=== PATIENT | female | born 1965 | race Caucasian/White ===

== ENCOUNTER 2017-05-29 10:04 | Emergency (ER) | payer OTHER, SELFPAY | END 2017-05-29 13:21 | disposition home or self-care (01) | PROVIDERS: Emergency Provider Emergency Medicine; Family Provider Nurse Practitioner Family; Visit Provider Emergency Medicine | DX: N93.9 Abnormal uterine and vaginal bleeding, unspecified (principal); N83.202 Unspecified ovarian cyst, left side; R55 Syncope and collapse; E03.9 Hypothyroidism, unspecified; Z88.6 Allergy status to analgesic agent; Z79.899 Other long term (current) drug therapy | CPT/HCPCS: 76830; 80053; 81001; 81025; 85025; 99284 ==

== ENCOUNTER → 2017-06-05 09:12 | Outpatient (POV) | payer OTHER, SELFPAY ==
[2017-06-05 09:21] VITALS: BMI 29.2
[2017-06-05 09:24] VITALS: BMI 29.1
[2017-06-05 09:25] VITALS: BP 113/81; PULSE 63; RESP 18; BMI 29.1
[2017-06-05 09:26] VITALS: BP 113/81; PULSE 63; RESP 18; BMI 29.1
--- NOTE | 2017-06-05 10:03 | HMH.PAINSOAP ---
[facility] Pain Management SOAP Note Subjective:: This patient is a pleasant 52-year-old white female who we are treating for low back pain and bilateral hip pain. She underwent bilateral joint injections with temporary relief however good relief of her pain symptoms. When she went back to work her pain started back in her low back and down her right leg. She is currently on diclofenac 75 mg twice a day which does not help much. She is unable to take gabapentin because of significant side effects which interfere with her work. Her MRI does show degenerative changes with bulging disc in the lower lumbar spine. She also has facet hypertrophy at L3-L4, L4-L5 and L5-S1. I believe she would benefit from a lumbar epidural steroid injection. We will try this at her next visit. Objective:: Alert and oriented ?3 in no acute distress. Patient has a normal gait. Motor strength of the lower extremities is 5/5. There is no gross sensory deficit. Assessment:: Degenerative disc disease of lumbar spine with bulging disc at L4-L5 and facet hypertrophy at L3-L4, L4-5 and L5-S1. Bilateral sacroiliitis. Plan:: We will seek approval and plan on a lumbar epidural steroid injection. She also may be a candidate for repeat bilateral facet joint injections of L3-L4, L4-L5 and L5-S1 in the future.
--- NOTE | 2017-06-05 10:06 | P.CONS_ITS ---
[facility] [place] Pain Management SOAP Note Subjective:: This patient is a pleasant 52-year-old white female who we are treating for low back pain and bilateral hip pain. She underwent bilateral joint injections with temporary relief however good relief of her pain symptoms. When she went back to work her pain started back in her low back and down her right leg. She is currently on diclofenac 75 mg twice a day which does not help much. She is unable to take gabapentin because of significant side effects which interfere with her work. Her MRI does show degenerative changes with bulging disc in the lower lumbar spine. She also has facet hypertrophy at L3-L4, L4-L5 and L5-S1. I believe she would benefit from a lumbar epidural steroid injection. We will try this at her next visit. Objective:: Alert and oriented ?3 in no acute distress. Patient has a normal gait. Motor strength of the lower extremities is 5/5. There is no gross sensory deficit. Assessment:: Degenerative disc disease of lumbar spine with bulging disc at L4-L5 and facet hypertrophy at L3-L4, L4-5 and L5-S1. Bilateral sacroiliitis. Plan:: We will seek approval and plan on a lumbar epidural steroid injection. She also may be a candidate for repeat bilateral facet joint injections of L3-L4, L4 -L5 and L5-S1 in the future.
== END ==
PROVIDERS: Family Provider Nurse Practitioner Family; PCP Nurse Practitioner Family; Visit Provider Anesthesiology
DX: M46.1 Sacroiliitis, not elsewhere classified (principal); M51.36 Other intervertebral disc degeneration, lumbar region
CPT/HCPCS: 99212

== ENCOUNTER → 2017-07-27 10:31 | Day surgery (SDC) | payer OTHER, SELFPAY ==
[2017-07-27 11:48] VITALS: BP 125/66; PULSE 59; RESP 21; TEMP 36.7; O2SAT 98; BMI 29.9
--- NOTE | 2017-07-27 12:26 | HMH.PMPROC ---
- Procedure Date: 07/27/17 Time: 12:26 Anesthesiologist:: Jurgen Sharma MD Complications:: None Pre-procedure Diagnosis:: Degenerative disc disease of lumbar spine with bulging disc at L4-L5 and facet hypertrophy at L3-L4, L4-5 and L5-S1 Post-procedure Diagnosis:: Same Indications for Procedure:: This patient is a pleasant 52-year-old white female who we are treating for low back pain and bilateral hip pain. She has increasing pain in her low back with artery when she went back to work. It also goes down her right leg. MRI does show degenerative changes with bulging disc at L4-L5 and facet hypertrophy at L3-L4, L4-L5 and L5-S1. We will do a lumbar epidural steroid injection today to see if this helps with her pain symptoms. Procedure Details:: Lumbar epidural steroid injection under fluoroscopy Informed consent was obtained and the risk and benefits of the procedure was explained to the patient. The patient was taken to the procedure room. The patient was placed prone on the procedure table. The patient was prepped and draped in sterile fashion. C-arm fluoroscopy was used to view the lumbar spine. Skin and subcutaneous tissues were anesthetized using lidocaine. I placed an 18-gauge epidural needle and advanced into the L4-L5 interspace using fluoroscopic guidance and [id number] to air. After confirmation of needle placement in the epidural space with dye I injected 2 mL of lidocaine 1.5% with Depo-Medrol 80 mg. Patient tolerated the procedure well with no complications. Plan and Disposition:: We will follow-up with this patient in 2 weeks. We will reevaluate her symptoms at that time.
[2017-07-27 12:29] VITALS: BP 156/72; PULSE 76; RESP 18
[2017-07-27 12:32] VITALS: BP 141/66; PULSE 58; RESP 20; O2SAT 98
--- NOTE | 2017-07-27 12:33 | P.PCN_ITS ---
- Procedure Date: 07/27/17 Time: 12:26 Anesthesiologist:: Jurgen Sharma MD Complications:: None Pre-procedure Diagnosis:: Degenerative disc disease of lumbar spine with bulging disc at L4-L5 and facet hypertrophy at L3-L4, L4-5 and L5-S1 Post-procedure Diagnosis:: Same Indications for Procedure:: This patient is a pleasant 52-year-old white female who we are treating for low back pain and bilateral hip pain. She has increasing pain in her low back with artery when she went back to work. It also goes down her right leg. MRI does show degenerative changes with bulging disc at L4-L5 and facet hypertrophy at L3 -L4, L4-L5 and L5-S1. We will do a lumbar epidural steroid injection today to see if this helps with her pain symptoms. Procedure Details:: Lumbar epidural steroid injection under fluoroscopy Informed consent was obtained and the risk and benefits of the procedure was explained to the patient. The patient was taken to the procedure room. The patient was placed prone on the procedure table. The patient was prepped and draped in sterile fashion. C-arm fluoroscopy was used to view the lumbar spine. Skin and subcutaneous tissues were anesthetized using lidocaine. I placed an 18-gauge epidural needle and advanced into the L4-L5 interspace using fluoroscopic guidance and [id number] to air. After confirmation of needle placement in the epidural space with dye I injected 2 mL of lidocaine 1.5 % with Depo-Medrol 80 mg. Patient tolerated the procedure well with no complications. Plan and Disposition:: We will follow-up with this patient in 2 weeks. We will reevaluate her symptoms at that time.
[2017-07-27 12:45] VITALS: BP 116/64; PULSE 55; RESP 21; TEMP 36.4; O2SAT 97
== END ==
PROVIDERS: Family Provider Nurse Practitioner Family; PCP Internal Medicine Adolescent Medicine; Visit Provider Anesthesiology
DX: M51.36 Other intervertebral disc degeneration, lumbar region (principal); M46.96 Unspecified inflammatory spondylopathy, lumbar region
CPT/HCPCS: 62323; J1040; Q9966

== ENCOUNTER → 2017-08-13 15:39 | Outpatient (POV) | payer OTHER, SELFPAY ==
[2017-08-13 15:47] VITALS: BP 134/71; PULSE 97; RESP 18; TEMP 36.4; O2SAT 97; BMI 29.1
--- NOTE | 2017-08-13 16:18 | HMH.PAINSOAP ---
[facility] Pain Management SOAP Note Subjective:: Patient is a pleasant 52-year-old white female who presents today as a follow-up after her lumbar epidural steroid injection. Patient states that she had 80-90% relief of her pain after her injection. This pain relief is still ongoing and has lasted over 3 weeks. Patient is interested in getting another lumbar epidural steroid injection at this time. Patient rates her pain as 6 out of 10 today. However she has been working and does a lot of physical activity for her job. Patient is on anti-inflammatories and has tried physical therapy in the past. Patient states that the injection has been the most helpful in increasing her functionality at work. ROS General: no recent weight change, no fever, no sleep disturbances Respiratory: no cough, no shortness of air, no recurring pulmonary infections Cardiovascular/Peripheral Vascular: No chest pain, No palpitations, no edema, no shortness of breath. Gastrointestinal: no incontinence, normal bowel movements reported Genitourinary: no incontinence Musculoskeletal: Back pain Psychiatric: normal mood/ affect, [denies depression], [denies anxiety] Neurological: [denies weakness in extremities], [denies balance issues] Objective:: Physical Exam General: Alert and oriented x3, no acute distress, pleasant and cooperative, [on room air] Lungs: Resps E/U, Symmetrical chest expansion, Eyes: PERRL Musculoskeletal: Flexion and extension of lumbar spine somewhat guarded secondary to pain, deep tendon reflexes normal, strength in upper and lower extremities [5/5], normal gait noted, positive bilateral straight leg test at 30? Neurological: speech clear, denture laboratory technician equal, no gross sensory deficits Assessment:: Degenerative disc disease of the lumbar spine with lumbar radiculopathy Plan:: We will order a L4-L5 lumbar epidural steroid injection in several weeks. Patient will continue on her anti-inflammatories. Patient is working full-time. Patient got significant relief from her last injection. Patient has tried and failed physical therapy in the past. This note was dictated using voice recognition software and may contain errors or omissions
--- NOTE | 2017-08-13 16:21 | P.CONS_ITS ---
[facility] Pain Management SOAP Note Subjective:: Patient is a pleasant 52-year-old white female who presents today as a follow- up after her lumbar epidural steroid injection. Patient states that she had 80- 90% relief of her pain after her injection. This pain relief is still ongoing and has lasted over 3 weeks. Patient is interested in getting another lumbar epidural steroid injection at this time. Patient rates her pain as 6 out of 10 today. However she has been working and does a lot of physical activity for her job. Patient is on anti-inflammatories and has tried physical therapy in the past. Patient states that the injection has been the most helpful in increasing her functionality at work. ROS General: no recent weight change, no fever, no sleep disturbances Respiratory: no cough, no shortness of air, no recurring pulmonary infections Cardiovascular/Peripheral Vascular: No chest pain, No palpitations, no edema, no shortness of breath. Gastrointestinal: no incontinence, normal bowel movements reported Genitourinary: no incontinence Musculoskeletal: Back pain Psychiatric: normal mood/ affect, [denies depression], [denies anxiety] Neurological: [denies weakness in extremities], [denies balance issues] Objective:: Physical Exam General: Alert and oriented x3, no acute distress, pleasant and cooperative, [ on room air] Lungs: Resps E/U, Symmetrical chest expansion, Eyes: PERRL Musculoskeletal: Flexion and extension of lumbar spine somewhat guarded secondary to pain, deep tendon reflexes normal, strength in upper and lower extremities [5/5], normal gait noted, positive bilateral straight leg test at 30 ? Neurological: speech clear, expeller worker equal, no gross sensory deficits Assessment:: Degenerative disc disease of the lumbar spine with lumbar radiculopathy Plan:: We will order a L4-L5 lumbar epidural steroid injection in several weeks. Patient will continue on her anti-inflammatories. Patient is working full- time. Patient got significant relief from her last injection. Patient has tried and failed physical therapy in the past. This note was dictated using voice recognition software and may contain errors or omissions
== END ==
PROVIDERS: Family Provider Nurse Practitioner Family; PCP Internal Medicine Adolescent Medicine; Visit Provider Clinical Nurse Specialist Family Health
DX: M54.16 Radiculopathy, lumbar region (principal)
CPT/HCPCS: 99212

== ENCOUNTER → 2017-08-17 10:37 | Outpatient (CLI) | payer OTHER, SELFPAY ==
[2017-08-17 12:29] LABS: Basophils % 0.5 % (0.1-2.0); Eosinophils # 0.2 K/mm3 (0.0-0.4); Eosinophils % 3.6 % (0.1-12.0); Hematocrit 41.7 % (37.0-47.0); Hemoglobin 12.9 g/dL (12.2-16.2); Lymphocytes # 1.8 K/mm3 (0.7-4.5); Lymphocytes % 33.8 K/mm3 (10-50); Mean Corpuscular Hemoglobin 27.7 pg (27.0-31.2); Mean Corpuscular Volume 89.5 fl (81-99); Mean Platelet Volume 7.7 fl (7.4-10.4); Monocytes # 0.3 K/mm3 (0.1-1.0); Monocytes % 5.2 % (1.7-9.3); Neutrophils # 3.1 K/mm3 (1.8-7.8); Neutrophils % 56.9 % (37.0-80.0); Platelet Count 301 K/mm3 (142-424); Red Blood Count 4.66 M/mm3 (4.20-5.40); Red Cell Distribution Width 12.8 % (11.5-17.5); White Blood Count 5.4 K/mm3 (4.8-10.8)
[2017-08-17 13:07] LABS: Chloride 106 mmol/L (98-107); Creatinine,Serum 0.57 mg/dL (0.55-1.02); Estimated Glomerular Filt Rate 112 ml/min (>60); GFR (African American) 136 ML/MIN (>60); Potassium 4.4 mmoL/L (3.5-5.1); Sodium 141 mmol/L (136-145)
[2017-08-17 13:18] LABS: Anion Gap 11.4 mEq/L (5-15); Blood Urea Nitrogen 15 mg/dL (7-18); Carbon Dioxide 28 mmol/L (21.0-32.0); Glucose 82 mg/dL (74-106)
== END ==
PROVIDERS: Visit Provider Nurse Practitioner Obstetrics & Gynecology
DX: Z01.818 Encounter for other preprocedural examination (principal); N95.0 Postmenopausal bleeding
CPT/HCPCS: 36415; 80048; 85025

== ENCOUNTER 2017-08-20 06:06 | Day surgery (SDC) | payer OTHER, SELFPAY ==
[2017-08-03 10:28] VITALS: BMI 29.1
[2017-08-20] VITALS (9 sets, daily range): BP systolic 114–134; BP diastolic 57–78; PULSE 49–60; RESP 16–18; TEMP 36.2–36.4; O2SAT 95–99
[2017-08-20 06:40] LABS: Urine Pregnancy, HCG Qual. Negative (Negative)
--- NOTE | 2017-08-20 08:19 | P.OP_ITS ---
Date of procedure: 08/20/17 Pre-op Diagnosis:: Postmenopausal bleeding, endometrial polyp Post-op Diagnosis:: Placement of bleeding endometrial polyp Procedure performed:: Hysteroscopy, D&C, polypectomy with Myosure Surgeon:: Juaquin Aguilar MD CEMENTER MACHINE JOINER:: Ramiro Mathis Anesthesia: LMA Estimated blood loss (mL): 50 Clinical Note:: She is a 52-year-old lady who complains of perimenopausal bleeding. Endometrial biopsy was negative for hyperplasia or endometrial carcinoma. She had a saline infusion sonohysterography that showed thickening of the anterior wall of the uterus possibly consistent with a flat polyp. Operative findings:: She had a 2 cm anterior thickening of the endometrium possibly consistent with a polyp or sub-serous fibroid. The rest of the endometrial cavity appeared normal. The endometrium was quite thin. It was somewhat thickened overlying the fibroid. Operative note:: She was taken to the operating room where LMA anesthesia was found to be adequate. She was prepped and draped in normal sterile fashion in the lithotomy position. A weighted speculum was placed in the vagina and the anterior lip of the cervix was grasped with a tenaculum. We then dilated her cervix to approximately 6 mm. We then inserted a hysteroscope into the uterine cavity and the findings were as previously dictated. Using the myOsure device I removed the thickening on the anterior wall of the uterus. It was seen to be completely free. I then performed a gentle curettage. She tolerated the procedure well and was taken to the recovery room in excellent condition. All sponge and instrument counts were correct. Estimated blood loss was less than 50 cc. Condition: stable Disposition: PACU Specimens:: Endometrial polyp, endometrial curettings Complications:: None
--- NOTE | 2017-08-20 08:21 | HMH.ANESI ---
[facility] Anesthesia Record Part I Intake, IV Amount: 500 Estimated blood loss (mL): 50 Urine output (mL): 25 Blood Products used (#): none Blood Pressure: 134/71 SaO2: 95 Pulse Rate: 57 Respiratory Rate: 18 Temperature: 97.5 F Patient is:: Drowsy, Stable Stable to PACU at:: 08:20
--- NOTE | 2017-08-20 08:22 | HMH.ANESII ---
[facility] Anesthesia Record Part II Discharge Time: 08:50 Destination: Surgical Day Care (OP Surgery) PACU nurse assessment reviewed?: Yes Patient Condition:: Good Anesthesia Complications:: None
--- NOTE | 2017-08-20 08:22 | HMH.ANESCL ---
[facility] Anesthesia Checklist - Patient Identification Patient Identification: Arm Band, Verbal (Name & ) - Structural Data Admitted From: Home Planned Operative Procedure/s: d and c Consent for Planned Operative Procedure(s) Verified: Yes Verified Documents: Surgical Consent - NPO Status Verified Time NPO: 00:00 - Chart Verification Results Verified: CBC, BMP - Additional verifications Patient : No Anesthesia Reactions: No Hx Blood Transfusions: No Blood Transfusion Reaction: No - Cardiovascular Assessment Heart Sounds: S1 & S2 Pulse Strength: Baseline Pulse Rhythm: Regular Peripheral Edema: No - Airway Assessment C-Spine Mobility Assessed: Yes TMJ Mobility Assessed: Yes Dentition: Good Dentition - Neurological Assessment Level of Consciousness: Awake, Alert, Appropriate Hx Seizures: No Numbness or tingling in extremities: No - Anesthesia Plan Anesthesia Risk discussed: Yes Anesthesia Plan: Verified ASA Class: I Anesthesia Type: Spinal [facility] Anesthesia HX I have reviewed the patient's past medical history: Yes Medical History: Denies:: Cancer, Diabetes Mellitus Type 1, Diabetes Mellitus Type 2, MRSA, Seizures Other Medical History: Reports: Hypothyroidism Laterality Cases: Left: Arthroscopy Knee Other Surgeries: Yes: Dilation and Curettage, Other Amputation: No *Family Hx:: Cancer, Heart Attack
--- NOTE | 2017-08-20 08:34 | PC.NURSE ---
0830-pt eating ice chips w/out difficulty
--- NOTE | 2017-08-20 08:51 | PC.NURSE ---
0848-detailed report given to Hellen,RN 0850-pt transported to post op w/rails up and left in care of LY Macedo w/bed locked in lowest position. VSS. Pt stable.
== END 2017-08-20 09:21 | disposition home or self-care (01) ==
LOC: OR 06:08
PROVIDERS: Family Provider Nurse Practitioner Family; PCP Internal Medicine Adolescent Medicine; Visit Provider Nurse Practitioner Obstetrics & Gynecology
PROC: 0UB98ZZ Excision of Uterus, Via Natural or Artificial Opening Endoscopic (ICD-10-PCS; CPT 58558; principal; 2017-08-20 07:30)
DX: N84.0 Polyp of corpus uteri; N93.8 Other specified abnormal uterine and vaginal bleeding
CPT/HCPCS: 58558; 81025; 96374; J0131; J2405

== ENCOUNTER → 2017-09-24 14:48 | Outpatient (POV) | payer OTHER, SELFPAY ==
[2017-09-24 15:01] VITALS: BP 116/67; PULSE 61; RESP 20; TEMP 36.7; O2SAT 98; BMI 29.1
--- NOTE | 2017-09-24 15:56 | HMH.PAINSOAP ---
[facility] Pain Management SOAP Note Subjective:: Patient is a pleasant 52-year-old white female who we are seeing for follow-up after lumbar epidural steroid injection. Patient states most of her back pain has resolved however she is having right SI joint pain. Patient is extremely tender over right SI joint. She rates her pain as 7 out of 10 today. Patient still works full-time on a very active job. Patient is interested in injective therapy. Patient has seen a neurosurgeon in the past and was deemed appropriate candidate for surgery however due to insurance restriction she was unable to continue with this. ROS General: no recent weight change, no fever, no sleep disturbances Respiratory: no cough, no shortness of air, no recurring pulmonary infections Cardiovascular/Peripheral Vascular: No chest pain, No palpitations, no edema, no shortness of breath. Gastrointestinal: no incontinence, normal bowel movements reported Genitourinary: no incontinence Musculoskeletal: Right SI joint pain Psychiatric: normal mood/ affect, Neurological: [denies weakness in extremities], [denies balance issues] Objective:: Physical Exam General: Alert and oriented x3, no acute distress, pleasant and cooperative, [on room air] Lungs: Resps E/U, Symmetrical chest expansion, Eyes: PERRL Musculoskeletal: Flexion and extension of lumbar spine somewhat guarded secondary to pain, deep tendon reflexes normal, strength in upper and lower extremities [5/5], [abnormal gait noted] a positive Valarie's test on the right side, extreme point tenderness over right SI joint Neurological: speech clear, magazine worker equal, no gross sensory deficits Assessment:: Sacroiliitis, degenerative disc disease of the lumbar spine Plan:: We will schedule a right SI joint injection for this patient. Patient is doing better after her 2 rounds a lumbar epidural steroid injections. Patient's tried and failed anti-inflammatories, medications, physical therapy. Patient and I had a long discussion if this does not provide some relief for her we may have to discuss potentially sending her back for another opinion surgically. I will follow-up with this patient after injection and reassess her symptoms at that time. This note was dictated using voice recognition software and may contain errors or omissions
--- NOTE | 2017-09-24 16:00 | P.CONS_ITS ---
[facility] Pain Management SOAP Note Subjective:: Patient is a pleasant 52-year-old white female who we are seeing for follow-up after lumbar epidural steroid injection. Patient states most of her back pain has resolved however she is having right SI joint pain. Patient is extremely tender over right SI joint. She rates her pain as 7 out of 10 today. Patient still works full-time on a very active job. Patient is interested in injective therapy. Patient has seen a neurosurgeon in the past and was deemed appropriate candidate for surgery however due to insurance restriction she was unable to continue with this. ROS General: no recent weight change, no fever, no sleep disturbances Respiratory: no cough, no shortness of air, no recurring pulmonary infections Cardiovascular/Peripheral Vascular: No chest pain, No palpitations, no edema, no shortness of breath. Gastrointestinal: no incontinence, normal bowel movements reported Genitourinary: no incontinence Musculoskeletal: Right SI joint pain Psychiatric: normal mood/ affect, Neurological: [denies weakness in extremities], [denies balance issues] Objective:: Physical Exam General: Alert and oriented x3, no acute distress, pleasant and cooperative, [ on room air] Lungs: Resps E/U, Symmetrical chest expansion, Eyes: PERRL Musculoskeletal: Flexion and extension of lumbar spine somewhat guarded secondary to pain, deep tendon reflexes normal, strength in upper and lower extremities [5/5], [abnormal gait noted] a positive Valarie's test on the right side, extreme point tenderness over right SI joint Neurological: speech clear, proposal director equal, no gross sensory deficits Assessment:: Sacroiliitis, degenerative disc disease of the lumbar spine Plan:: We will schedule a right SI joint injection for this patient. Patient is doing better after her 2 rounds a lumbar epidural steroid injections. Patient's tried and failed anti-inflammatories, medications, physical therapy. Patient and I had a long discussion if this does not provide some relief for her we may have to discuss potentially sending her back for another opinion surgically. I will follow-up with this patient after injection and reassess her symptoms at that time. This note was dictated using voice recognition software and may contain errors or omissions
== END ==
PROVIDERS: Family Provider Nurse Practitioner Family; PCP Internal Medicine Adolescent Medicine; Visit Provider Clinical Nurse Specialist Family Health
DX: M46.1 Sacroiliitis, not elsewhere classified (principal)
CPT/HCPCS: 99212

== ENCOUNTER → 2017-09-27 16:57 | Outpatient (CLI) | payer OTHER, SELFPAY ==
[2017-09-27 18:34] LABS: Alanine Aminotransferase 33 U/L (12-78); Albumin Level 3.2 gm/dL (3.4-5.0); Albumin/Globulin Ratio 0.9 (1.1-1.8); Alkaline Phosphatase 145 U/L (46-116); Anion Gap 13.3 mEq/L (5-15); Aspartate Amino Transferase 28 U/L (15-37); Bilirubin,Total 0.2 mg/dL (0.2-1.0); Blood Urea Nitrogen 21 mg/dL (7-18); Calcium 9.1 mg/dL (8.5-10.1); Carbon Dioxide 28 mmol/L (21.0-32.0); Chloride 105 mmol/L (98-107); Creatinine,Serum 0.81 mg/dL (0.55-1.02); Estimated Glomerular Filt Rate 75 ml/min (>60); GFR (African American) 91 ML/MIN (>60); Globulin 3.7 gm/dl (1.3-3.2); Glucose 82 mg/dL (74-106); Potassium 4.3 mmoL/L (3.5-5.1); Sodium 142 mmol/L (136-145); Thyroid Stimulating Hormone 0.55 uIU/ml (0.358-3.740); Total Protein,Serum 6.9 gm/dL (6.4-8.2)
[2017-09-29 20:12] LABS: Vitamin D 25 Hydroxy 20.2 ng/mL (30.0-100.0)
== END ==
PROVIDERS: Visit Provider Nurse Practitioner Family
DX: E03.9 Hypothyroidism, unspecified (principal)
CPT/HCPCS: 36415; 80053; 82652; 84443

== ENCOUNTER → 2017-10-22 15:29 | Outpatient (POV) | payer OTHER, SELFPAY ==
--- NOTE | 2017-10-22 16:00 | HMH.PAINSOAP ---
[facility] Pain Management SOAP Note Subjective:: Patient is a pleasant 52-year-old white female who presents today for follow-up. Patient is having increased pain in her back and bilateral legs. Patient rates her pain a 6 out of 10 today. Patient states she is having some restless leg at night.. She is unable to sleep. Patient still works full-time on a very active job. Patient is interested in getting a lumbar epidural steroid injection instead of an SI joint injection I believe that this would be beneficial given her increase in pain. Patient has been seen by a neurosurgeon in the past and was deemed appropriate candidate for surgery however due to insurance restriction she was unable to continue with this. Patient has taken it in the past 300 mg 1 p.o. 3 times daily. She states that it did make her woozy. Patient would like to start this at a lower dose. Patient is on anti-inflammatories. ROS General: no recent weight change, no fever, no sleep disturbances Respiratory: no cough, no shortness of air, no recurring pulmonary infections Cardiovascular/Peripheral Vascular: No chest pain, No palpitations, no edema, no shortness of breath. Gastrointestinal: no incontinence, normal bowel movements reported Genitourinary: no incontinence Musculoskeletal: Right SI joint pain, back pain, bilateral leg pain Psychiatric: normal mood/ affect, [denies depression], [denies anxiety] Neurological: [denies weakness in extremities], [denies balance issues] Objective:: Physical Exam General: Alert and oriented x3, no acute distress, pleasant and cooperative, [on room air] Lungs: Resps E/U, Symmetrical chest expansion, Eyes: PERRL Musculoskeletal: Flexion and extension of lumbar spine somewhat guarded secondary to pain, deep tendon reflexes normal, strength in upper and lower extremities [5/5], [abnormal gait noted] leg raise test bilaterally positive at 30? Neurological: speech clear, wig stylist equal, no gross sensory deficits Assessment:: Degenerative disc disease of lumbar spine, lumbar radiculopathy, sacroiliitis Plan:: We will start the patient on gabapentin 100 mg 1 p.o. nightly. Patient is to contact us if she has any side effects. Patient is to continue with her anti-inflammatories. We will schedule L4-L5 lumbar epidural steroid injection. Patient has these in the past with significant relief. Patient's tried and failed physical therapy, stretching therapy, medications. We will follow-up with the patient after injection. This note was dictated using voice recognition software and may contain errors or omissions
--- NOTE | 2017-10-22 16:03 | P.CONS_ITS ---
[facility] Pain Management SOAP Note Subjective:: Patient is a pleasant 52-year-old white female who presents today for follow- up. Patient is having increased pain in her back and bilateral legs. Patient rates her pain a 6 out of 10 today. Patient states she is having some restless leg at night.. She is unable to sleep. Patient still works full-time on a very active job. Patient is interested in getting a lumbar epidural steroid injection instead of an SI joint injection I believe that this would be beneficial given her increase in pain. Patient has been seen by a neurosurgeon in the past and was deemed appropriate candidate for surgery however due to insurance restriction she was unable to continue with this. Patient has taken it in the past 300 mg 1 p.o. 3 times daily. She states that it did make her woozy. Patient would like to start this at a lower dose. Patient is on anti-inflammatories. ROS General: no recent weight change, no fever, no sleep disturbances Respiratory: no cough, no shortness of air, no recurring pulmonary infections Cardiovascular/Peripheral Vascular: No chest pain, No palpitations, no edema, no shortness of breath. Gastrointestinal: no incontinence, normal bowel movements reported Genitourinary: no incontinence Musculoskeletal: Right SI joint pain, back pain, bilateral leg pain Psychiatric: normal mood/ affect, [denies depression], [denies anxiety] Neurological: [denies weakness in extremities], [denies balance issues] Objective:: Physical Exam General: Alert and oriented x3, no acute distress, pleasant and cooperative, [ on room air] Lungs: Resps E/U, Symmetrical chest expansion, Eyes: PERRL Musculoskeletal: Flexion and extension of lumbar spine somewhat guarded secondary to pain, deep tendon reflexes normal, strength in upper and lower extremities [5/5], [abnormal gait noted] leg raise test bilaterally positive at 30? Neurological: speech clear, floorworker equal, no gross sensory deficits Assessment:: Degenerative disc disease of lumbar spine, lumbar radiculopathy, sacroiliitis Plan:: We will start the patient on gabapentin 100 mg 1 p.o. nightly. Patient is to contact us if she has any side effects. Patient is to continue with her anti- inflammatories. We will schedule L4-L5 lumbar epidural steroid injection. Patient has these in the past with significant relief. Patient's tried and failed physical therapy, stretching therapy, medications. We will follow-up with the patient after injection. This note was dictated using voice recognition software and may contain errors or omissions
[2017-10-22 16:08] VITALS: BP 122/47; PULSE 89; RESP 18; O2SAT 98; BMI 32.8
--- NOTE | 2017-10-23 09:33 | PC.PHONENOTE ---
10/19/17-Called in Rx for Gabapentin 100mg QHS with no refills per provider order
--- NOTE | 2017-11-29 14:15 | PC.NURSE ---
gabapentin 100mg po nightly with 2 refills called in to [facility]
== END ==
PROVIDERS: Family Provider Nurse Practitioner Family; PCP Internal Medicine Adolescent Medicine; Visit Provider Clinical Nurse Specialist Family Health
DX: M54.16 Radiculopathy, lumbar region (principal)
CPT/HCPCS: 99212

== ENCOUNTER → 2017-12-26 15:37 | Outpatient (CLI) | payer OTHER, SELFPAY ==
--- NOTE | 2017-12-26 15:43 | XR_ITS ---
XR knee LT 3V Ordering Physician: Ramiro Alba MD Patient Age: 52 years: Female HISTORY: ITS.REASON: LEFT KNEE PAIN TECHNIQUE: 3 views of the left knee COMPARISON : None FINDINGS 3 views left knee reveal no fracture. Borderline narrowing medial compartment may reflect some early degenerative changes here. Mild sharpening the joint may reflect the same. There is some mild hypertrophic changes about the, not. No joint effusion evident. IMPRESSION: . No acute nor prominent findings left knee. Likely early degenerative arthritic changes
== END ==
PROVIDERS: PCP Internal Medicine Adolescent Medicine; Visit Provider Internal Medicine Adolescent Medicine
DX: M25.562 Pain in left knee (principal)
CPT/HCPCS: 73562

== ENCOUNTER 2018-03-04 10:30 | Outpatient (RCR) | payer OTHER, SELFPAY | END 2018-03-04 10:31 | disposition home or self-care (01) | LOC: PT 10:30 | PROVIDERS: Visit Provider Nurse Practitioner Family | DX: M25.562 Pain in left knee (principal) | CPT/HCPCS: 97010; 97014; 97016; 97110; 97163; G0283 ==

== ENCOUNTER 2018-05-08 09:24 | Outpatient (RCR) | payer OTHER, BC, SELFPAY | END 2018-05-09 10:15 | disposition home or self-care (01) | LOC: PT 09:24 | PROVIDERS: Visit Provider Orthopaedic Surgery | DX: M25.562 Pain in left knee (principal) | CPT/HCPCS: 97760 ==

== ENCOUNTER → 2018-06-10 08:01 | Outpatient (CLI) | payer OTHER, BC, SELFPAY ==
--- NOTE | 2018-06-10 08:08 | XR_ITS ---
XR knee LT 4V HISTORY: Knee pain ITS.REASON: weightbearing ORDERING PHYSICIAN: Sally Singleton MD PATIENT AGE: 53 years COMPARISON: 12/26/2017 FINDINGS: Weightbearing views are performed. Mild to moderate osteoarthritic changes are present involving all 3 compartments with decrease in the joint space and osteophyte formation. No fracture or dislocation. No lytic or blastic change. IMPRESSION: [id number] osteoarthritis which may be very slightly worse compared to the previous exam
== END ==
PROVIDERS: PCP Internal Medicine Adolescent Medicine; Visit Provider Orthopaedic Surgery
DX: M25.562 Pain in left knee (principal)
CPT/HCPCS: 73564

== ENCOUNTER → 2018-07-08 12:07 | Outpatient (CLI) | payer OTHER, BC, SELFPAY ==
[2018-07-08 13:19] LABS: Anion Gap 11.1 mEq/L (5-15); Blood Urea Nitrogen 24 mg/dL (7-18); Calcium 8.9 mg/dL (8.5-10.1); Carbon Dioxide 29 mmol/L (21.0-32.0); Chloride 104 mmol/L (98-107); Creatinine,Serum 0.71 mg/dL (0.55-1.02); Estimated Glomerular Filt Rate 87 ml/min (>60); Free T4 (Free Thyroxine) 1.57 ng/dl (0.76-1.46); GFR (African American) 105 ML/MIN (>60); Glucose 92 mg/dL (74-106); Potassium 4.1 mmoL/L (3.5-5.1); Sodium 140 mmol/L (136-145); Thyroid Stimulating Hormone 0.17 uIU/ml (0.358-3.740)
[2018-07-09 08:09] LABS: Vitamin D 25 Hydroxy 25.4 ng/mL (30.0-100.0)
== END ==
PROVIDERS: Visit Provider Nurse Practitioner Family
DX: E03.9 Hypothyroidism, unspecified (principal); E55.9 Vitamin D deficiency, unspecified; M54.41 Lumbago with sciatica, right side
CPT/HCPCS: 36415; 80048; 82652; 84439; 84443

== ENCOUNTER → 2018-11-07 17:08 | Outpatient (CLI) | payer OTHER, BC, SELFPAY ==
[2018-11-07 18:22] LABS: Free T4 (Free Thyroxine) 1.42 ng/dl (0.76-1.46); Thyroid Stimulating Hormone 0.94 uIU/ml (0.358-3.740)
== END ==
PROVIDERS: Visit Provider Nurse Practitioner Family
DX: E03.9 Hypothyroidism, unspecified (principal)
CPT/HCPCS: 36415; 84439; 84443

== ENCOUNTER → 2019-06-12 08:42 | Outpatient (CLI) | payer OTHER, BC, SELFPAY ==
[2019-06-12 08:53] LABS: Basophils % 0.8 % (0.1-2.0); Eosinophils # 0.2 K/mm3 (0.0-0.4); Eosinophils % 2.8 % (0.1-12.0); Hematocrit 43.5 % (37.0-47.0); Hemoglobin 13.8 g/dL (12.2-16.2); Lymphocytes % 36.5 % (10-50); Mean Corpuscular HGB Conc 31.6 g/dL (31.8-35.4); Mean Corpuscular Volume 88.4 fl (81-99); Mean Platelet Volume 8.5 fl (7.4-10.4); Monocytes # 0.3 K/mm3 (0.1-1.0); Monocytes % 4.7 % (1.7-9.3); Neutrophils # 3.1 K/mm3 (1.8-7.8); Neutrophils % 55.2 % (37.0-80.0); Platelet Count 297 K/mm3 (142-424); Red Blood Count 4.92 M/mm3 (4.20-5.40); Red Cell Distribution Width 13.1 % (11.5-17.5); White Blood Count 5.6 K/mm3 (4.8-10.8)
[2019-06-12 10:40] LABS: Blood Urea Nitrogen 20 mg/dL (7-18); Calcium 8.9 mg/dL (8.5-10.1); Carbon Dioxide 30 mmol/L (21.0-32.0); Chloride 105 mmol/L (98-107); Creatinine,Serum 0.68 mg/dL (0.55-1.02); Estimated Glomerular Filt Rate 91 ml/min (>60); GFR (African American) 110 ML/MIN (>60); Glucose 82 mg/dL (74-106); Sodium 140 mmol/L (136-145); Thyroid Stimulating Hormone 0.66 uIU/ml (0.358-3.740)
[2019-06-13 19:04] LABS: Vitamin D 25 Hydroxy 20.3 ng/mL (30.0-100.0)
== END ==
PROVIDERS: Visit Provider Nurse Practitioner Family
DX: E03.9 Hypothyroidism, unspecified (principal); E55.9 Vitamin D deficiency, unspecified
CPT/HCPCS: 36415; 80048; 82652; 84443; 85025

== ENCOUNTER → 2019-11-20 07:47 | Outpatient (CLI) | payer BC, SELFPAY ==
[2019-11-20 09:33] LABS: Alanine Aminotransferase 11 U/L (12-78); Albumin Level 3.8 g/dl (3.5-5.0); Albumin/Globulin Ratio 1.2 (1.1-1.8); Alkaline Phosphatase 102 U/L (38-126); Anion Gap 12.2 mEq/L (5-15); Aspartate Amino Transferase 24 U/L (14-36); Bilirubin,Total 0.4 mg/dl (0.2-1.3); Blood Urea Nitrogen 28 mg/dl (7-17); Calcium 9.4 mg/dl (8.4-10.2); Carbon Dioxide 29 mmol/L (22.0-30.0); Chloride 102 mmol/L (98-107); Estimated Glomerular Filt Rate 88 ml/min (>60); GFR (African American) 106 ML/MIN (>60); Globulin 3.1 g/dL (1.3-3.2); Glucose 94 mg/dl (74-100); Potassium 4.2 mmoL/L (3.5-5.1); Sodium 139 mmol/L (136-145); Total Protein,Serum 6.9 g/dl (6.3-8.2)
== END ==
PROVIDERS: Visit Provider Nurse Practitioner Family
DX: E03.9 Hypothyroidism, unspecified (principal); M53.9 Dorsopathy, unspecified; E55.9 Vitamin D deficiency, unspecified
CPT/HCPCS: 36415; 80053; 82306; 84443

== ENCOUNTER 2020-04-08 07:26 | Day surgery (SDC) | payer BC, SELFPAY ==
[2020-04-06 10:31] VITALS: BMI 28.3
[2020-04-08] VITALS (7 sets, daily range): BP systolic 82–118; BP diastolic 42–70; PULSE 54–67; RESP 16–18; TEMP 36.2–36.6; O2SAT 95–100
--- NOTE | 2020-04-08 08:16 | P.PN_ITS ---
[facility] Anesthesia Checklist - Patient Identification Patient Identification: Arm Band - Structural Data Admitted From: Home Planned Operative Procedure/s: colon Consent for Planned Operative Procedure(s) Verified: Yes Verified Documents: History and Physical - NPO Status Verified Time NPO: 00:00 - Chart Verification Results Verified: CBC, BMP - Additional verifications Patient : No Anesthesia Reactions: No Hx Blood Transfusions: No Blood Transfusion Reaction: No Cephalosporin Allergy: No Previous Colonoscopy: Yes - Cardiovascular Assessment Heart Sounds: S1 & S2 Pulse Strength: Baseline Pulse Rhythm: Regular Peripheral Edema: No - Airway Assessment C-Spine Mobility Assessed: Yes TMJ Mobility Assessed: Yes Dentition: Poor Dentition - Neurological Assessment Level of Consciousness: Awake, Alert, Appropriate Hx Seizures: No Numbness or tingling in extremities: No - Anesthesia Plan Anesthesia Risk discussed: Yes Anesthesia Plan: Verified ASA Class: II Anesthesia Type: MAC [facility] History I have reviewed the patient's past medical history: Yes Medical History: Reports:: Depression Denies:: Anxiety, Cancer, Diabetes Mellitus Type 1, Diabetes Mellitus Type 2, Hyperlipidemia, Hypertension, Internal Pacemaker, Lung Disease, Migraine, MRSA, Seizures *Have you ever received a pneumonia vaccine?: No *Have you received a flu vaccine this season?: Yes Other Medical History: Reports: Hypothyroidism. Denies: Blood Transfusion Reaction Anesthesia experience/problems:: none Laterality Cases: Left: Arthroscopy Knee Other Surgeries: Yes: Colonoscopy, Dilation and Curettage, Other. No: Pacemaker Amputation: No Fractures: No - *Social History Last grade of school completed: 9th or 10th Smoking Status: Never smoker Alcohol Intake: never Substance Use Type: denies use *Occupational Status:: employed Housing: house Household Members: spouse *Travel in the last 8 weeks: None - Psychiatric History Pschychiatric History:: Reports:: Depression Denies:: Anxiety Family Hx:: Cancer, Heart Attack, Diabetes
--- NOTE | 2020-04-08 09:12 | P.PCN_ITS ---
- Procedure: Date: 04/08/20 Patient Date of :: 1965 Procedure Performed:: Colonoscopy Indications:: History of colon polyps Performing Provider:: Kamron Tyson MD Referring Provider:: . Sedation:: Monitored anesthesia care Procedure:: After informed consent was obtained the patient was taken to the endoscopy suite. Sedation ensued after the patient was transferred to the left lateral decubitus position. Pulse, blood pressure, and oxygen saturation were monitored throughout the procedure. Digital rectal exam revealed no significant abnor mality. The colonoscope was placed in position. The entire colon was evaluated. The colonoscope was carefully removed and the patient was transferred to recovery in stable condition. Please see findings and specimens below for detail. Findings:: Bowel preparation moderate Severe colonic spasticity/tortuosity (worse in sigmoid) Scattered diverticulosis Small polypoid lesion transiently visualized in transverse colon. Extensive maneuvering for secondary visualization unsuccessful. Specimens:: None Recommendations:: Repeat colonoscopy in 1-2 years secondary to moderate bowel preparation, severe tortuosity spasticity, and possibility of small transverse colon polyp (only transiently visualized). Complications:: No immediate Estimated blood obtained (mL): 0
== END 2020-04-08 09:55 | disposition home or self-care (01) ==
LOC: OUTP 07:27
PROVIDERS: PCP Nurse Practitioner Family; Visit Provider Surgery
PROC: 0DJD8ZZ Inspection of Lower Intestinal Tract, Via Natural or Artificial Opening Endoscopic (ICD-10-PCS; CPT 45378; principal; 2020-04-08 08:30)
DX: Z12.11 Encounter for screening for malignant neoplasm of colon (principal); Z86.010 Personal history of colon polyps; K56.2 Volvulus; K57.30 Diverticulosis of large intestine without perforation or abscess without bleeding; F32.9 Major depressive disorder, single episode, unspecified; E03.9 Hypothyroidism, unspecified; Z87.39 Personal history of other diseases of the musculoskeletal system and connective tissue; Z80.9 Family history of malignant neoplasm, unspecified; Z83.3 Family history of diabetes mellitus; Z82.49 Family history of ischemic heart disease and other diseases of the circulatory system
CPT/HCPCS: 45378

== ENCOUNTER → 2020-06-11 14:25 | Outpatient (CLI) | payer BC, SELFPAY ==
[2020-06-11 14:37] LABS: Microscopic, Urine URINE MICROSCOPIC (MICROSCOPIC)
[2020-06-11 15:42] LABS: Basophils % 0.5 % (0.1-2.0); Eosinophils # 0.2 K/mm3 (0.0-0.4); Eosinophils % 2.6 % (0.1-12.0); Hematocrit 45.5 % (37.0-47.0); Hemoglobin 14.6 g/dL (12.2-16.2); Lymphocytes # 1.9 K/mm3 (0.7-4.5); Lymphocytes % 25.1 % (10-50); Mean Corpuscular HGB Conc 32.1 g/dL (31.8-35.4); Mean Corpuscular Hemoglobin 27.9 pg (27.0-31.2); Mean Corpuscular Volume 86.8 fl (81-99); Mean Platelet Volume 7.4 fl (7.4-10.4); Monocytes # 0.3 K/mm3 (0.1-1.0); Monocytes % 3.8 % (1.7-9.3); Neutrophils # 5.1 K/mm3 (1.8-7.8); Platelet Count 315 K/mm3 (142-424); Red Blood Count 5.24 M/mm3 (4.20-5.40); Red Cell Distribution Width 13.8 % (11.5-17.5); White Blood Count 7.5 K/mm3 (4.8-10.8)
[2020-06-11 16:05] LABS: Appearance,Urine CLEAR (Clear); Bilirubin,Urine Negative (Negative); Blood, Urine Negative (Negative); Color,Urine YELLOW (Yellow); Glucose,Urine (UA) Negative (Negative); Ketones,Urine Negative (Negative); Leukocyte Esterase,Urine Negative (Negative); Nitrate,Urine Negative (Negative); PH,Urine 5.5 (5.0-8.5); Protein,Urine Negative (Negative); Specific Gravity, Urine >= 1.030 (1.005-1.030); Urobilinogen,Urine 0.2 EU/dl (0.2)
[2020-06-11 16:33] LABS: Alanine Aminotransferase 16 U/L (12-78); Albumin Level 4.4 g/dl (3.5-5.0); Albumin/Globulin Ratio 1.3 (1.1-1.8); Alkaline Phosphatase 107 U/L (38-126); Anion Gap 11.9 mEq/L (5-15); Aspartate Amino Transferase 26 U/L (14-36); Bilirubin,Total 0.5 mg/dl (0.2-1.3); Blood Urea Nitrogen 30 mg/dl (7-17); Calcium 9.9 mg/dl (8.4-10.2); Carbon Dioxide 30 mmol/L (22.0-30.0); Chloride 103 mmol/L (98-107); Estimated Glomerular Filt Rate 75 ml/min (>60); GFR (African American) 91 ML/MIN (>60); Globulin 3.3 g/dL (1.3-3.2); Glucose 86 mg/dl (74-100); Potassium 3.9 mmoL/L (3.5-5.1); Sodium 141 mmol/L (136-145); Total Protein,Serum 7.7 g/dl (6.3-8.2)
[2020-06-11 17:04] LABS: Thyroid Stimulating Hormone 0.12 uIU/mL (0.465-4.68)
[2020-06-14 15:17] LABS: 25-OH Vitamin D, Total 27.2 ng/mL (30-100)
== END ==
PROVIDERS: Visit Provider Nurse Practitioner Family
DX: E03.9 Hypothyroidism, unspecified (principal); E55.9 Vitamin D deficiency, unspecified; M54.5 Low back pain; J01.00 Acute maxillary sinusitis, unspecified
CPT/HCPCS: 36415; 80053; 81001; 82306; 82652; 84443; 85025

== ENCOUNTER → 2020-12-17 07:25 | Outpatient (CLI) | payer BC, SELFPAY ==
[2020-12-17 08:17] LABS: Basophils # 0.1 K/mm3 (0-0.2); Eosinophils # 0.2 K/mm3 (0.0-0.4); Eosinophils % 3.2 % (0.1-12.0); Hematocrit 39.6 % (37.0-47.0); Hemoglobin 13.2 g/dL (12.2-16.2); Lymphocytes # 1.7 K/mm3 (0.7-4.5); Lymphocytes % 31.3 % (10-50); Mean Corpuscular HGB Conc 33.3 g/dL (31.8-35.4); Mean Corpuscular Hemoglobin 27.6 pg (27.0-31.2); Mean Corpuscular Volume 82.7 fl (81-99); Mean Platelet Volume 7.4 fl (7.4-10.4); Monocytes # 0.3 K/mm3 (0.1-1.0); Monocytes % 5.5 % (1.7-9.3); Neutrophils # 3.2 K/mm3 (1.8-7.8); Neutrophils % 58.9 % (37.0-80.0); Platelet Count 229 K/mm3 (142-424); Red Blood Count 4.78 M/mm3 (4.20-5.40); Red Cell Distribution Width 13.6 % (11.5-17.5); White Blood Count 5.4 K/mm3 (4.8-10.8)
[2020-12-17 09:00] LABS: Alanine Aminotransferase 15 U/L (12-78); Albumin Level 4.1 g/dl (3.5-5.0); Albumin/Globulin Ratio 1.5 (1.1-1.8); Alkaline Phosphatase 96 U/L (38-126); Anion Gap 12.6 mEq/L (5-15); Aspartate Amino Transferase 24 U/L (14-36); Bilirubin,Total 0.6 mg/dl (0.2-1.3); Blood Urea Nitrogen 27 mg/dl (7-17); Calcium 8.9 mg/dl (8.4-10.2); Carbon Dioxide 29 mmol/L (22.0-30.0); Chloride 105 mmol/L (98-107); Chol/HDL Ratio 3.3 (1-3.5); Cholesterol 200 mg/dl (140-200); Estimated Glomerular Filt Rate 88 ml/min (>60); GFR (African American) 106 ML/MIN (>60); Globulin 2.8 g/dL (1.3-3.2); Glucose 86 mg/dl (74-100); HDL Cholesterol 61 mg/dl (40-60); Potassium 4.6 mmoL/L (3.5-5.1); Sodium 142 mmol/L (136-145); Total Protein,Serum 6.9 g/dl (6.3-8.2); Triglycerides 73 mg/dl (30-150); VLDL Cholesterol 15 mg/dL (0-40)
[2020-12-17 09:11] LABS: Direct LDL Cholesterol 109.37 mg/dL (100-129)
[2020-12-17 09:17] LABS: 25-OH Vitamin D, Total 39.6 ng/mL (30-100)
[2020-12-17 09:32] LABS: Thyroid Stimulating Hormone 2.83 uIU/mL (0.465-4.68)
[2020-12-18 11:25] LABS: LH 64.8 mIU/mL (.)
[2020-12-22 16:22] LABS: Estrogen 54 pg/mL (.)
== END ==
PROVIDERS: Visit Provider Nurse Practitioner Family
DX: Z00.00 Encounter for general adult medical examination without abnormal findings (principal); E03.9 Hypothyroidism, unspecified; R23.2 Flushing; E55.9 Vitamin D deficiency, unspecified
CPT/HCPCS: 36415; 80053; 80061; 82306; 82672; 83001; 83002; 84443; 85025

== ENCOUNTER → 2021-01-24 11:50 | Outpatient (CLI) | payer BC, SELFPAY ==
--- NOTE | 2021-01-24 11:53 | XR_ITS ---
PROCEDURE: XR CERVICAL SPINE 5V CLINICAL INDICATION: NECK PAIN , OCCIPITAL HEADACHE COMPARISON: No exams were available for comparison FINDINGS: No fracture or dislocation. No lytic or blastic change. There is normal mineralization. There is slight reversal of the cervical lordosis which may be due to patient positioning or muscle spasm. Mild degenerative disc disease is present at C4-C5 C5-C6 and C6-C7. There minimal retrolisthesis of C5 on C6 2-3 mm. Small endplate osteophytes are present. There is mild foraminal narrowing on the right at C4-C5 and C5-C6 and on the left at C4-C5 and C5-C6 and C6-C7. No lytic or blastic change. No cervical rib. There is an impacted left mandibular molar IMPRESSION: Cervical spondylosis as detailed above Dictated by: Dom Ramsey MD 01/24/2021 12:27 Dom Ramsey MD in [facility] 01/24/2021 12:27
== END ==
PROVIDERS: PCP Nurse Practitioner Family; Visit Provider Nurse Practitioner Family
DX: M54.2 Cervicalgia (principal); R51.9 Headache, unspecified
CPT/HCPCS: 72050

== ENCOUNTER → 2021-03-10 10:55 | Outpatient (POV) | payer BC, SELFPAY | PROVIDERS: Visit Provider Audiologist | DX: Z00.00 Encounter for general adult medical examination without abnormal findings (principal) ==

== ENCOUNTER 2021-03-23 16:30 | Outpatient (RCR) | payer BC, SELFPAY ==
--- NOTE | 2021-02-21 09:17 | HMH.PTOPEV ---
PT Outpatient Evaluation Rehab PT Outpatient Evaluation Start: 02/21/21 09:05 Freq: Status: Active Protocol: Document 02/21/21 09:06 YONIS (Rec: 02/21/21 09:17 YONIS [id number]) Electronically Signed By Ricky Metzger, PT 02/21/21 09:06 Outpatient Therapy Subjective History Subjective History Pt presents w/right sided neck pain/cervico-genic ORTEGA's for ~ 1 month. Pt reports insidious onset neck pain, unchanged with activity, and recent Xrays of cerivcal spine reveal some 'arthritis'. Pt reports localized pain, no radicular s /s. Chief Complaint Pain,Stiff Symptom Type Ache,Sharp,Dull Symptoms Relieved By Rest/Positioning,Heat Prior Functional Limitations Lifting,Housework,Sleeping Current Functional Limitations Lifting,Housework,Sleeping Symptom Description Constant but Variable Level of pain today (0-10) 8 Pain scale - at its best (0-10) 5 Pain scale - at its worst (0-10) 8 Cervical Eval Palpation Cervical Muscles R Cervical Paraspinal,R Suboccipital,R Upper Trapezius Cervical/Thoracic Palpation Findings Tenderness Posture Head/C-Spine Posture Sitting Position Flexed Head/C-Spine Posture Standing Position Flexed Flexibility Deficits Upper Trapezius Muscle Length (R) Mild Tightness Levaetor Scapulae Muscle Length (R) Mild Tightness Passive Joint Mobility Cervical PIVM WNL: R OA L OA R AA L AA R C2/3 L C2/3 R C3/4 L C3/4 R C4/5 L C4/5 R C5/6 L C5/6 R C6/7 L C6/7 R C7/T1 L C7/T1 AROM Cervical Spine Extension Active Range of 0-40 Motion (degrees) Cervical Spine Flexion Active Range of 0-50 Motion (degrees) Cervical Spine Right Lateral Flexion 0-35 Active Range of Motion (degrees) Cervical Spine Left Lateral Flexion 0-35 Active Range of Motion (degrees) Cervical Spine Right Rotation Active 0-30 Range of Motion (degrees) Cervical Spine Left Rotation Active 0-30 Range of Motion (degrees) MMT Bilateral D
== END 2021-03-23 16:35 | disposition home or self-care (01) ==
LOC: PT 16:30
PROVIDERS: PCP Nurse Practitioner Family; Visit Provider Nurse Practitioner Family
DX: M54.2 Cervicalgia (principal)
CPT/HCPCS: 97010; 97014; 97035; 97110; 97140; 97163; G0283

== ENCOUNTER → 2021-08-22 09:14 | Outpatient (CLI) | payer BC, SELFPAY ==
--- NOTE | 2021-08-22 09:23 | XR_ITS ---
FINAL REPORT CLINICAL HISTORY: RA HAND PAIN,ELEVATED SED RATE FINDINGS: 3 views of the right hand were obtained. There is no acute fracture or dislocation. There are mild hypertrophic changes the basilar joint. There is mild narrowing of the DIP and PIP joints. IMPRESSION: Mild osteoarthritis. Reviewed, Interpreted and Dictated by Martinez Sadler MD Transcribed by Alexys Rebolledo Authenticated by Martinez Sadler MD on 08/22/2021 12:14:14 PM [facility]
--- NOTE | 2021-08-22 09:23 | XR_ITS ---
FINAL REPORT CLINICAL HISTORY: RA HAND PAIN,ELEVATED SED RATE FINDINGS: 3 views of the left hand were obtained. There is no acute fracture or dislocation. There are mild hypertrophic changes at the basilar joint. There is a density in the lateral mid 4th digit soft tissues may represent a small foreign body. There are 2 increased density foreign bodies in the soft tissues of the volar and at the level of the distal 3rd metacarpal . There is mild narrowing of the DIP and PIP joints. IMPRESSION: Mild osteoarthritis. Questionable foreign bodies as above. Reviewed, Interpreted and Dictated by Martinez Sadler MD Transcribed by Alexys Rebolledo Authenticated by Martinez Sadler MD on 08/22/2021 12:14:10 PM [facility]
== END ==
PROVIDERS: PCP Nurse Practitioner Family; Visit Provider Nurse Practitioner Family
DX: M79.642 Pain in left hand (principal); M79.641 Pain in right hand; R70.0 Elevated erythrocyte sedimentation rate
CPT/HCPCS: 73130

== ENCOUNTER → 2021-09-29 14:05 | Outpatient (POV) | payer BC, SELFPAY ==
[2021-09-29 14:26] VITALS: BP 120/77; PULSE 93; RESP 18; TEMP 36.4; O2SAT 96; BMI 28.3
--- NOTE | 2021-09-29 16:46 | HMH.PMCON ---
Assessment and Plan (1) Occipital neuralgia of right side Status: Acute Category: Medical Code(s): M54.81 - Occipital neuralgia - Assessment and plan all Dx Assessment and Plan for all problems:: Patient has been having pain around the right occiput. This is tender to palpation. We will schedule the patient for a right occipital nerve block. Risk and benefits been discussed with the patient. Patient would like to proceed with this procedure. Patient has been instructed to contact the clinic with any concerns before the next appointment. Dr. Sharma has reviewed this note and agrees with this plan of care. This note was dictated using voice recognition software and make contain errors or omissions. HPI - Data of Consult Patient: new to practice Consult date: 09/29/21 Requesting Physician: EDGARDO Garduno - Consult Narrative Reason for consult: Right occipital pain History of present illness: Ms. Reis is a 56 year old female who presents today as a new patient. Patient is referred by Jennifer Carlisle APRN. Thank you for the referral. Patient presents today with pain around her right occiput. This has been going on for several months. Patient says that it has caused intermittent headache. Her labs were unremarkable other than an elevated CRP and ESR. She also says that this radiates to the top of her head and around her posterior neck and right shoulder. She rates her pain as 7 out of 10. For pain, she has been taking Celebrex with minimal relief of symptoms. She was also recently diagnosed with bilateral carpal tunnel syndrome. She is following up with Ortho in regards to this. She is not on any scheduled medications. CC: EDGARDO Garduno [facility] History I have reviewed the patient's past medical history: Yes Medical History: Reports:: Depression Denies:: Anxiety, Cancer, Diabetes Mellitus Type 1, Diabetes Mellitus Type 2, Hyperlipidemia, Hypertension, Internal Pacemaker, Lung Disease, Migraine, MRSA, Seizures *Have you ever received a pneumonia vaccine?: No *Have you received a flu vaccine this season?: No Other Medical History: Reports: Hypothyroidism. Denies: Blood Transfusion Reaction Laterality Cases: Left: Arthroscopy Knee Other Surgeries: Yes: Colonoscopy, Dilation and Curettage, Other. No: Pacemaker Amputation: No Fractures: No - *Social History Smoking Status: Never smoker Alcohol Intake: never Substance Use Type: denies use *Occupational Status:: employed Housing: house Household Members: spouse *Travel in the last 8 weeks: None - Psychiatric History Pschychiatric History:: Reports:: Depression Denies:: Anxiety Family Hx:: Cancer, Heart Attack, Diabetes Review of Systems - Review of Systems Review of Systems: General: No recent weight changes, no fever, no sleep disturbances Respiratory: No cough, no shortness of air, no recurring pulmonary infections Cardiovascular/peripheral vascular: No chest pain, no palpitations, no edema, no shortness of breath Gastrointestinal: No new onset incontinence, normal bowel movements reported Genitourinary: No new onset incontinence Musculoskeletal: Right occipital pain Psychiatric: [Normal mood/affect] Neurological: [Denies weakness in extremities], [denies balance issues] Meds Home Medications Medication Instructions Recorded Confirmed Type Levothyroxine Sodium 88 mcg PO DAILY 08/20/17 09/29/21 History [Levothyroxine 100mcg (0.1MG) Tab] Sertraline HCl [Zoloft 100mg 100 mg PO DAILY 08/20/17 09/29/21 History tablet] meloxicam 15 mg tablet 15 mg PO DAILY 03/24/20 09/29/21 History Allergies Allergy/AdvReac Type Severity Reaction Status Date / Time oxycodone [From Percocet] Allergy Unknown Hives Verified 04/14/20 10:33 Objective Vital signs: Temp Pulse Resp BP Pulse Ox 97.5 F L 93 H 18 120/77 96 09/29/21 14:26 09/29/21 14:26 09/29/21 14:26 09/29/21 14:26 09/29/21 14:26 Narrative: Physical Exam:
== END ==
PROVIDERS: Visit Provider Student in an Organized Health Care Education/Training Program
DX: M54.81 Occipital neuralgia (principal)
CPT/HCPCS: 99202; G0463

== ENCOUNTER 2021-10-20 09:56 | Outpatient (RCR) | payer BC, SELFPAY | END 2021-10-20 11:00 | disposition home or self-care (01) | LOC: OT 09:56 | PROVIDERS: Visit Provider Orthopaedic Surgery | DX: G56.03 Carpal tunnel syndrome, bilateral upper limbs (principal) ==

== ENCOUNTER → 2021-10-24 09:01 | Outpatient (POV) | payer BC, SELFPAY ==
[2021-10-24 09:18] VITALS: BP 147/93; PULSE 62; RESP 18; TEMP 36.7; O2SAT 100; BMI 28.3
--- NOTE | 2021-10-24 10:05 | HMH.PAINSOAP ---
[facility] Pain Management SOAP Note Subjective:: Patient is a pleasant 56-year-old female who presents today for follow-up. Patient is currently being treated for right-sided occipital neuralgia. When I last saw this patient, I had scheduled her for a right-sided occipital nerve block. Patient canceled this appointment. She says that the injection made her really nervous. She has had injections in her knees and her back before. She wants to know if there is something else that we can do before we proceed with any injections. She wants to know if there is any other imaging that we can do. In regards to her pain, it is localized around the right occiput. She does get some headache from this. Denies any vision changes. She has some radiating pain down her right shoulder. She was also recently diagnosed with carpal tunnel syndrome bilaterally. She is following up with Ortho in regards to this. She is trying out home exercises and wrist braces for now. Rates her pain today 7 out of 10. She takes Celebrex for pain provides minimal relief. She has tried gabapentin before that provided minimal relief. She is not on any scheduled medications. Janusz [id number]. Review of Systems: General: No recent weight changes, no fever, no sleep disturbances Respiratory: No cough, no shortness of air, no recurring pulmonary infections Cardiovascular/peripheral vascular: No chest pain, no palpitations, no edema, no shortness of breath Gastrointestinal: No new onset incontinence, normal bowel movements reported Genitourinary: No new onset incontinence Musculoskeletal: Right occiput pain Psychiatric: [Normal mood/affect] Neurological: [Denies weakness in extremities], [denies balance issues] Objective:: Physical Exam: General: Alert and oriented x3, no acute distress, pleasant and cooperative Lungs: Respirations even and unlabored, symmetrical chest expansion Eyes: PERRL Musculoskeletal: Patient is tender to palpation around the right occipital nerve. Neurological: Speech clear, no gross sensory deficit Assessment:: Occipital neuralgia Plan:: I discussed with the patient that typically the first-line of treatment for occipital neuralgia is occipital nerve block. If the injections do not provide any relief, we can consider doing trigger point injections or cervical MRI. At this time, patient is leery of moving forward with the occipital nerve block. I will start her on a compounding cream that she can use for this and for her carpal tunnel syndrome. Follow-up in a month Patient has been instructed to contact the clinic with any concerns before the next appointment. Dr. Sharma has reviewed this note and agrees with this plan of care. This note was dictated using voice recognition software and make contain errors or omissions. [facility] History Medical History: Reports:: Depression Denies:: Anxiety, Cancer, Diabetes Mellitus Type 1, Diabetes Mellitus Type 2, Hyperlipidemia, Hypertension, Internal Pacemaker, Lung Disease, Migraine, MRSA, Seizures *Have you ever received a pneumonia vaccine?: No *Have you received a flu vaccine this season?: Yes Other Medical History: Reports: Hypothyroidism. Denies: Blood Transfusion Reaction Laterality Cases: Left: Arthroscopy Knee Other Surgeries: Yes: Colonoscopy, Dilation and Curettage, Other. No: Pacemaker Amputation: No Fractures: No - *Social History Smoking Status: Never smoker Alcohol Intake: never Substance Use Type: denies use *Occupational Status:: employed Housing: house Household Members: spouse *Travel in the last 8 weeks: None - Psychiatric History Pschychiatric History:: Reports:: Depression Denies:: Anxiety Family Hx:: Cancer, Heart Attack, Diabetes
== END ==
PROVIDERS: Visit Provider Student in an Organized Health Care Education/Training Program
DX: M54.81 Occipital neuralgia (principal)
CPT/HCPCS: 99212; G0463

== ENCOUNTER 2021-11-28 08:00 | Outpatient (RCR) | payer BC, SELFPAY ==
--- NOTE | 2021-10-03 10:46 | HMH.OTOPEV ---
OT Inpatient Evaluation Rehab OT Outpatient Eval Start: 10/03/21 10:33 Freq: Status: Active Protocol: [facility] 10[facility]21 10[id number] Electronically Signed By Felicia Griffin OT 10/03/21 10:33 Outpatient Therapy Subjective History Subjective History Pt is a 56 year old female who reports to therapy for bilateral wrist evalautions. Pt explains she has been diagnosed with bilateral CTS. She began having sypmtoms in both wrists/hands ~1 year ago. Pt complains of constant pain in both hands, numbness at times, and weakness. Pt is right hand dominant. 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 This requires constant repetitive use/movements bilaterally. Pt does have an appointment scheduled with ortho in ~2 weeks. Pt demonstrates with normal AROM at bilateral wrists. However, both wrists are slightly decreased in strength and a significant decline in weatherization technician strength. Pt will continue to be seen weekly in order to address symptoms. Right hand STG weatherization technician strength 25 lbs Right hand LTG weatherization technician strength 30 lbs Left hand STG weatherization technician strength 20 lbs Left hand LTG weatherization technician strength 25 lbs Chief Complaint Pain,Weakness,Decreased Bilingual Case Manager Strength Symptom Type Ache,Numbness,Tingling Symptoms Relieved By Rest/Positioning Symptoms Aggravated By Lifting Prior Functional Limitations None Current Functional Limitations Reaching,Lifting,Housework, Sleeping Symptom Description Constant but Variable Level of pain today (0-10) 8 Pain scale - at its best (0-10) 5 Pain scale - at its worst (0-10) 8 Wrist/Hand Eval Wrist Range of Motion Left Wrist Extension Active Range of Motion ( 64 degrees degrees) Wrist Flexion Active Range of Motio
--- NOTE | 2021-11-04 08:51 | HMH.RHREAS ---
Rehab Reassessment Rehab OP Re-assessment Start: 11/04/21 08:33 Freq: Status: Active Protocol: Document 11/04/21 08:33 NANCY (Rec: 11/04/21 08:50 NANCY [id number]) Electronically Signed By Felicia Griffin OT 11/04/21 08:33 Rehab Re-assessment Subjective Subjective My pain is still the same. Objective Objective Notes Pt continues to be seen twice a week in order to address bilateral CTS. Each session pt engages in median nerve glides, therapeutic exercises, and theract activities (fine motor). Pt also receives manual therapy to bilateral wrists in all planes to maintain motion. Modalities are provided in order to decrease pain/inflammation at the wrists. Assessment Progress Assessment Slower Than Expected Assessment Notes At this time, pt is still complaining of the same amount of pain/numbness/tingling she had when starting therapy. She rates her worst pain at 8/ 10 (usually after work). She is still wearing her braces at night for improved positioning. Pt has seen Dr. Patten and returns to him at the end of the month to discuss further options. Pt's AROM continues to remain within normal limits. Strengthening is slightly better. Right wrist MMT: 3+/5 Left wrist MMT: 3+/[address], 2, and 4 Goals Not Met See below Revised Goals ST LT-4 Plan Plan Continue OT plan of care at this time. Frequency of Therapy 2x's a week Duration of therapy 4 more weeks Time and Billing Re-Eval Time 11 Re-Eval Billing Units 1 PHYSICIAN CERTIFICATION: I certify the specified therapy services for Milla Reis are required, authorized, and reviewed every 30 days.
== END 2021-11-28 08:05 | disposition home or self-care (01) ==
LOC: OT 08:00
PROVIDERS: PCP Nurse Practitioner Family; Visit Provider Nurse Practitioner Family
DX: M79.641 Pain in right hand (principal); M79.642 Pain in left hand
CPT/HCPCS: 97010; 97014; 97035; 97110; 97140; 97164; 97166; G0283

== ENCOUNTER → 2021-11-28 10:44 | Outpatient (POV) | payer BC, SELFPAY ==
[2021-11-28 11:32] VITALS: BP 133/67; PULSE 69; RESP 20; TEMP 36.6; O2SAT 98; BMI 28.3
--- NOTE | 2021-11-28 15:51 | HMH.PAINSOAP ---
[facility] Pain Management SOAP Note Subjective:: Patient is a pleasant 56-year-old female who presents today for follow-up. Patient is coming treated for right-sided occipital neuralgia. I had scheduled this patient in the past for right-sided occipital nerve block but she canceled her procedure. She states that Lady of the injection made her really nervous. Today, patient states that she is a bit more open and receptive for this procedure. She would like to schedule this procedure. She continues to have tenderness around her right occiput. This is causing her headache. Rates her pain today as 9 out of 10. Patient is also being followed by orthopedic for carpal tunnel syndrome bilaterally. We have started the patient on a compounding cream for her right occipital pain but I have also recommend the patient to use this cream for her carpal tunnel syndrome. Review of Systems: General: No recent weight changes, no fever, no sleep disturbances Respiratory: No cough, no shortness of air, no recurring pulmonary infections Cardiovascular/peripheral vascular: No chest pain, no palpitations, no edema, no shortness of breath Gastrointestinal: No new onset incontinence, normal bowel movements reported Genitourinary: No new onset incontinence Musculoskeletal: Right occiput pain Psychiatric: [Normal mood/affect] Neurological: [Denies weakness in extremities], [denies balance issues] Objective:: Physical Exam: General: Alert and oriented x3, no acute distress, pleasant and cooperative Lungs: Respirations even and unlabored, symmetrical chest expansion Eyes: PERRL Musculoskeletal: Flexion and extension of cervical [spine] somewhat guarded secondary to pain, [antalgic gait noted]; Tenderness to palpation around the right occiput Neurological: Speech clear, no gross sensory deficit Assessment:: Right-sided occipital neuralgia, carpal tunnel syndrome bilaterally, shoulder pain Plan:: We will schedule the patient for a right sided occipital nerve block. We will follow this patient after this injection. If the patient does not get significant relief from this nerve block, we will consider getting a cervical MRI. Patient has been instructed to contact the clinic with any concerns before the next appointment. Dr. Sharma has reviewed this note and agrees with this plan of care. This note was dictated using voice recognition software and make contain errors or omissions. [facility] History Medical History: Reports:: Depression Denies:: Anxiety, Cancer, Diabetes Mellitus Type 1, Diabetes Mellitus Type 2, Hyperlipidemia, Hypertension, Internal Pacemaker, Lung Disease, Migraine, MRSA, Seizures *Have you ever received a pneumonia vaccine?: No *Have you received a flu vaccine this season?: Yes Other Medical History: Reports: Hypothyroidism. Denies: Blood Transfusion Reaction Laterality Cases: Left: Arthroscopy Knee Other Surgeries: Yes: Colonoscopy, Dilation and Curettage, Other. No: Pacemaker Amputation: No Fractures: No - *Social History Smoking Status: Never smoker Alcohol Intake: never Substance Use Type: denies use *Occupational Status:: other Housing: house Household Members: spouse *Travel in the last 8 weeks: None - Psychiatric History Pschychiatric History:: Reports:: Depression Denies:: Anxiety Family Hx:: Cancer, Heart Attack, Diabetes
== END ==
PROVIDERS: Visit Provider Student in an Organized Health Care Education/Training Program
DX: M54.81 Occipital neuralgia (principal); M25.519 Pain in unspecified shoulder; G56.03 Carpal tunnel syndrome, bilateral upper limbs
CPT/HCPCS: 99212; G0463

== ENCOUNTER → 2021-12-06 11:26 | Outpatient (CLI) | payer BC, SELFPAY ==
--- NOTE | 2021-12-08 18:26 | P.PCN_ITS ---
[facility] Procedure Note Procedure Note:: Date of Procedure: 12/06/2021 Pre-procedure diagnosis: 1. First CMC joint arthritis, right thumb 2. First CMC joint arthritis, left thumb Post-procedure diagnosis: Same Procedure: 1. Fluoroscopy-guided intraarticular corticosteroid injection first CMC joint, right thumb 2. Fluoroscopy-guided intraarticular corticosteroid injection first CMC joint, left thumb Performed by: Donovan Patten MD [employer] Equipment Operator/s: Michelle Gregg PA-C Anesthesia: None Estimated Blood Loss: none Procedure Note: The patient presented to the radiology department and was prepared for the bilateral thumb injection under fluoroscopic guidance. The consent form was reviewed and signed by both myself and the patient; all questions were answered. The patient's right hand was placed on the fluoroscopy table. The right hand was prepped in the usual sterile fashion with multiple chlorhexidine sticks. Timeout was performed as per protocol. Next, the fluoro machine was brought in over the patient?s right hand and a picture taken to confirm adequate visualization of the first CMC joint. I donned a pair of sterile surgical gloves; the remainder of the procedure was performed in a sterile fashion. After localizing the CMC joint under fluoroscopic guidance, a 25G needle was used to inject the joint. Using fluoro, it was confirmed that the needle is advanced into the first CMC joint. A combination of 20 mg of Kenalog and 1 mL of 1% lidocaine was then injected into the first carpometacarpal joint, under aseptic precautions. After completion of the procedure, the needle was withdrawn and a sterile Band-Aid was applied over the puncture site. The same procedure was then repeated on the left side. The patient's left hand was placed on the fluoroscopy table. The left hand was prepped in the usual sterile fashion with multiple chlorhexidine sticks. Timeout was performed as per protocol. Next, the fluoro machine was brought in over the patient?s left hand and a picture taken to confirm adequate visualization of the first CMC joint. I donned a pair of sterile surgical gloves; the remainder of the procedure was performed in a sterile fashion. After localizing the CMC joint under fluoroscopic guidance, a 25G needle was used to inject the joint. Using fluoro, it was confirmed that the needle is advanced into the first CMC joint. A combination of 20 mg of Kenalog and 1 mL of 1% lidocaine was then injected into the first carpometacarpal joint, under aseptic precautions. After completion of the procedure, the needle was withdrawn and a sterile Band-Aid was applied over the puncture site. Patient tolerated both the procedures well and there were no immediate complications. Patient reported very good pain relief within a few minutes after the injections. Specimens: none Condition/Disposition: good / home Complications: none
== END ==
PROVIDERS: PCP Nurse Practitioner Family; Visit Provider Orthopaedic Surgery
DX: M18.2 Bilateral post-traumatic osteoarthritis of first carpometacarpal joints (principal)
CPT/HCPCS: 20600; 77002

== ENCOUNTER 2021-12-09 08:19 | Day surgery (SDC) | payer BC, SELFPAY ==
[2021-12-09 08:21] VITALS: BP 148/64; PULSE 62; RESP 18; TEMP 36.3; O2SAT 97; BMI 28.3
[2021-12-09 08:45] VITALS: BP 146/87; PULSE 88; RESP 20
--- NOTE | 2021-12-09 08:45 | HMH.PMPROC ---
- Procedure Date: 12/09/21 Time: 08:45 Anesthesiologist:: Anthony Martinez CRNA Complications:: None Pre-procedure Diagnosis:: Right occipital neuralgia Post-procedure Diagnosis:: Same Indications for Procedure:: This patient is a very pleasant 56-year-old female who comes to our injection clinic today for right side occipital nerve block. She has not had this injection in the past. She complains of headache on the right posterior occiput as well as right parietal area. Procedure Details:: Details of the procedure were explained to the patient. The patient was taken the procedure room placed in the sitting position. The area over the right occipital was cleansed using an alcohol swab. Using a 25-gauge needle the right occipital nerve area was injected without difficulty after negative aspiration. The injection consisted of 3 cc of 1% lidocaine and 3 cc of 0.25% Marcaine +40 mg of Depo-Medrol. Patient tolerated the procedure without difficulty. There were no complications. Plan and Disposition:: Patient was discharged without incident.
[2021-12-09 08:51] VITALS: BP 137/70; PULSE 61; RESP 20; O2SAT 97
== END 2021-12-09 08:52 | disposition home or self-care (01) ==
LOC: SC.PAINP 08:20
PROVIDERS: PCP Nurse Practitioner Family; Visit Provider Nurse Anesthetist, Certified Registered
DX: M54.81 Occipital neuralgia (principal)
CPT/HCPCS: 64405; J1040

== ENCOUNTER → 2021-12-26 10:30 | Outpatient (POV) | payer BC, SELFPAY ==
[2021-12-26 12:08] VITALS: BP 128/75; PULSE 69; RESP 18; TEMP 36.6; O2SAT 98; BMI 28.3
--- NOTE | 2021-12-26 13:39 | P.CONS_ITS ---
[facility] Pain Management SOAP Note Subjective:: Patient is a pleasant 56-year-old female who presents for follow-up. Patient is currently being treated for right occipital neuralgia. She previously had a right occipital nerve block. She states that this provided minimal relief. She continues to have pain around her right occiput and has caused headache. She reports radiating pain to her right shoulder at times. Rates her pain today as 9 out of 10. She is currently not taking any scheduled medications. Review of Systems: General: No recent weight changes, no fever, no sleep disturbances Respiratory: No cough, no shortness of air, no recurring pulmonary infections Cardiovascular/peripheral vascular: No chest pain, no palpitations, no edema, no shortness of breath Gastrointestinal: No new onset incontinence, normal bowel movements reported Genitourinary: No new onset incontinence Musculoskeletal: Bilateral occipital pain Psychiatric: [Normal mood/affect] Neurological: [Denies weakness in extremities], [denies balance issues] Objective:: Physical Exam: General: Alert and oriented x3, no acute distress, pleasant and cooperative Lungs: Respirations even and unlabored, symmetrical chest expansion Eyes: PERRL Musculoskeletal: Tender to palpation around the right occipital nerve Neurological: Speech clear, no gross sensory deficit Assessment:: Right occipital neuralgia Plan:: Patient had minimal relief after the right occipital nerve block. I will start this patient on gabapentin 300 mg at bedtime to see if will help her neuropathic pain. I will also refer this patient to Dr. Stephens for further evaluation of right occipital neuralgia. Patient has been instructed to contact the clinic with any concerns before the next appointment. Dr. Sharma has reviewed this note and agrees with this plan of care. This note was dictated using voice recognition software and make contain errors or omissions. [facility] History Medical History: Reports:: Depression Denies:: Anxiety, Cancer, Diabetes Mellitus Type 1, Diabetes Mellitus Type 2, Hyperlipidemia, Hypertension, Internal Pacemaker, Lung Disease, Migraine, MRSA, Seizures *Have you ever received a pneumonia vaccine?: No *Have you received a flu vaccine this season?: Yes Other Medical History: Reports: Hypothyroidism. Denies: Blood Transfusion Reaction Laterality Cases: Left: Arthroscopy Knee Other Surgeries: Yes: No Previous Surgery, Colonoscopy, Dilation and Curettage, Other. No: Pacemaker Amputation: No Fractures: No - *Social History Smoking Status: Never smoker Alcohol Intake: never Substance Use Type: denies use *Occupational Status:: employed Housing: house Household Members: spouse *Travel in the last 8 weeks: None - Psychiatric History Pschychiatric History:: Reports:: Depression Denies:: Anxiety Family Hx:: No significant family history
== END ==
PROVIDERS: PCP Nurse Practitioner Family; Visit Provider Student in an Organized Health Care Education/Training Program
DX: M54.81 Occipital neuralgia (principal)
CPT/HCPCS: 99212; G0463

== ENCOUNTER 2022-01-08 15:33 | Emergency (ER) | payer BC, SELFPAY ==
[2022-01-08 15:45] VITALS: BP 137/75; PULSE 61; RESP 18; TEMP 36.7; O2SAT 99; BMI 28.3
[2022-01-08 16:05] VITALS: BP 137/75; PULSE 61; RESP 18; TEMP 36.7; O2SAT 99; BMI 28.3
--- NOTE | 2022-01-08 16:24 | HMH.EDUTC ---
[facility] [place] Disposition Clinical Impression: Occipital neuralgia of right side Disposition: Home, Self-Care Condition on Discharge: Good Instructions: Muscle Strain, Strengthening Your Muscles, DI for Occipital Neuralgia Additional Instructions: Follow up with your Family Doctor for further evaluation and testing Follow up with Dr Sharma in pain management as scheduled and discuss medication Return if needed Straight to ER if any life threatening symptoms Warm compresses may help with tension Further instructions per your Family Doctor Warm Compresses to area may help with pain and tension Referrals: Jennifer Carlisle APRN [Primary Care Provider] - As needed Time of Disposition: 16:32 Medical Decision Making - Janusz Inquiry Pt receiving controlled substance: No Janusz was queried for this patient: No Vital Signs: 01/08/22 15:45 01/08/22 16:05 Temperature 98.1 F 98.1 F Temperature Source Oral Oral Pulse Rate [Radial] 61 61 Respiratory Rate 18 18 Blood Pressure [Right Arm] 137/75 137/75 Blood Pressure Mean [Right Arm] 95 95 Blood Pressure Source [Right Arm] Automatic Cuff Automatic Cuff Blood Pressure Position [Right Arm] Sitting Sitting 02 Sat by Pulse Oximetry 99 99 Oxygen Delivery Method Room Air Room Air Medical Decision Narrative: Patient requesting testing like scans of her head to see if she is having muscle spasm Patient informed that we are unable to do CT or MRI in the [facility] that she would need to see her PCP to discuss if she may need these test or if she was having emergency she could go to the ED and she declined states that it is the same pain she has been having just wasnt sure if she could get it done faster in the [facility] HPI - General Stated complaint: Knot on R of head, No fall Time Seen by Provider: 01/08/22 16:24 Mode of Arrival: Ambulatory Source of Information: Patient Limitations: No Limitations Description of Symptoms (Recalled from Triage Doc. by RN): PATIENT C/O KNOT TO BACK OF HEAD X 3-4 MONTHS HEENT Symptoms (Recalled from RN notes): Yes Resp Symptoms (Recalled from RN notes): No Skin Symptoms (Recalled from RN notes): No MS Symptoms (Recalled from RN notes): No Functional Status (Recalled from RN notes): WNL - History of Present Illness Provider Complaint: Patient states that she has been having a knot on the right side of her head behind her right ear for about 3-4 mths States that she was dx with muscle pain States that she has seen her PCP, had physical therapy and seen Dr Sharma and got injection in the muscle States that she is suppose to take Gabapetin but she hasnt been taking it because it makes her drowsy States that she came in today to see if she could get testing done like scans or something to make sure it was a muscle States that she has pain when she turns her head or tries to sleep Denies new injury - Related Data Home Medications Medication Instructions Recorded Confirmed Levothyroxine Sodium 88 mcg PO DAILY 08/20/17 12/28/21 [Levothyroxine 100mcg (0.1MG) Tab] Sertraline HCl [Zoloft 100mg 100 mg PO DAILY 08/20/17 12/28/21 tablet] celecoxib 200 mg capsule 200 mg PO DAILY cap 10/20/21 12/28/21 Previous Rx's Medication Instructions Recorded Gabapentin [Neurontin 300mg 300 mg PO HS 30 Days #30 cap 12/26/21 capsule] Allergies Allergy/AdvReac Type Severity Reaction Status Date / Time oxycodone [From Percocet] Allergy Unknown Hives Verified 12/28/21 11:16 - Worker's Comp Is this a Worker's Comp case?: No [facility] History - Hepatitis A Screen Attestation statement:: This patient has been screened for Hepatitis A risk factors. I have reviewed the patient's past medical history: Yes Medical History: Reports:: Depression Denies:: Anxiety, Cancer, Diabetes Mellitus Type 1, Diabetes Mellitus Type 2, Hyperlipidemia, Hypertension, Internal Pacemaker, Lung Disease, Migraine, MRSA, Seizures Other Medical History: Reports: Hypothyroidism
[2022-01-08 16:40] VITALS: BP 137/75; PULSE 61; RESP 18; TEMP 36.7; O2SAT 99
== END 2022-01-08 16:46 | disposition home or self-care (01) ==
LOC: ER 15:52 → UTC 15:53
PROVIDERS: Emergency Provider Nurse Practitioner; PCP Nurse Practitioner Family
DX: M54.81 Occipital neuralgia (principal)
CPT/HCPCS: 99212; G0463

== ENCOUNTER → 2022-01-12 14:00 | Outpatient (CLI) | payer BC, SELFPAY ==
[2022-01-12 14:51] LABS: Basophils # 0.1 K/mm3 (0-0.2); Basophils % 1.2 % (0.1-2.0); Eosinophils # 0.2 K/mm3 (0.0-0.4); Hematocrit 42.6 % (37.0-47.0); Hemoglobin 13.2 g/dL (12.2-16.2); Lymphocytes % 26.7 % (10-50); Mean Corpuscular Volume 87.1 fl (81-99); Mean Platelet Volume 7.8 fl (7.4-10.4); Monocytes # 0.4 K/mm3 (0.1-1.0); Monocytes % 5.6 % (1.7-9.3); Neutrophils # 4.6 K/mm3 (1.8-7.8); Neutrophils % 63.6 % (37.0-80.0); Platelet Count 300 K/mm3 (142-424); Red Blood Count 4.89 M/mm3 (4.20-5.40); Red Cell Distribution Width 14.5 % (11.5-17.5); White Blood Count 7.3 K/mm3 (4.8-10.8)
[2022-01-12 15:52] LABS: Erythrocyte Sedimentation Rate 17 mm/hr (0-30)
[2022-01-12 16:51] LABS: Vitamin B12 381 pg/mL (239-931)
== END ==
PROVIDERS: PCP Nurse Practitioner Family; Visit Provider Specialist
DX: G89.29 Other chronic pain (principal); R51.9 Headache, unspecified
CPT/HCPCS: 36415; 82607; 85025; 85651

== ENCOUNTER → 2022-01-24 15:01 | Outpatient (CLI) | payer BC, SELFPAY ==
--- NOTE | 2022-01-24 15:01 | CT_ITS ---
FINAL REPORT TECHNIQUE: Axial CT images were performed through the head. Coronal reformatted images were submitted. This study was performed with techniques to keep radiation doses as low as reasonably achievable (ALARA). Individualized dose reduction techniques using automated exposure control or adjustment of mA and/or kV according to the patient's size were employed. CLINICAL HISTORY: severe occipital/right mastoid headache COMPARISON: 04/07/2019 FINDINGS: The ventricles are normal in size. There is no evidence of hemorrhage. There is no mass or edema identified. There is no abnormal extra-axial fluid seen. The sinuses are well aerated. IMPRESSION: No acute intracranial process. Reviewed, Interpreted and Dictated by Martinez Sadler MD Transcribed by Yana Mendes Authenticated and . [facility]
== END ==
PROVIDERS: PCP Nurse Practitioner Family; Visit Provider Specialist
DX: R51.9 Headache, unspecified (principal); G89.29 Other chronic pain; M54.81 Occipital neuralgia
CPT/HCPCS: 70450

== ENCOUNTER → 2022-01-27 08:32 | Outpatient (CLI) | payer BC, SELFPAY ==
--- NOTE | 2022-01-27 08:37 | XR_ITS ---
FINAL REPORT CLINICAL HISTORY: severe neck pain, right occipital headache COMPARISON: January 24, 2021 FINDINGS: CERVICAL SPINE Multiple views including flexion and extension were obtained. There is no acute fracture. There is no malalignment. There is mild disc space narrowing of C4-5, C5-6 and C6-7. There are small posterior osteophytes at C5-6. There is mild neural foraminal narrowing at C5-6. There is no instability on flexion and extension views. IMPRESSION: Degenerative changes with no acute bony abnormality. Reviewed, Interpreted and Dictated by Martinez Sadler MD Transcribed by Ivette Griffin Authenticated and . [facility]
== END ==
PROVIDERS: PCP Nurse Practitioner Family; Visit Provider Specialist
DX: M54.81 Occipital neuralgia (principal)
CPT/HCPCS: 72052

== ENCOUNTER → 2022-02-11 08:20 | Outpatient (CLI) | payer BC, SELFPAY | PROVIDERS: PCP Nurse Practitioner Family; Visit Provider Surgery | DX: Z01.812 Encounter for preprocedural laboratory examination (principal); Z20.822 Contact with and (suspected) exposure to COVID-19; Z12.11 Encounter for screening for malignant neoplasm of colon | CPT/HCPCS: C9803; U0003; U0005 ==

== ENCOUNTER 2022-02-14 09:08 | Day surgery (SDC) | payer BC, SELFPAY ==
[2022-02-10 14:11] VITALS: BMI 28.3
[2022-02-14] VITALS (8 sets, daily range): BP systolic 93–129; BP diastolic 57–79; PULSE 56–63; RESP 16–18; TEMP 36.5–36.6; O2SAT 94–100
--- NOTE | 2022-02-14 10:11 | EXP.ANES.CKL ---
[facility] Medical History (Updated 02/14/22 @ 09:45 by Chantale Najera RN) Arthritis Colonoscopy planned History of COVID-19 Hypothyroid Normal colonoscopy Occipital neuralgia of right side Surgical History H/O left knee surgery Family History Brother Cancer Mother CHF (congestive heart failure) Father Family history of emphysema Family/Other Diabetes Social History Smoking Status: Never smoker second hand exposure: No alcohol intake: never substance use type: denies use current occupational status: employed Travel in the last 8 weeks: None household members: spouse housing: house marital status: number of children: 0 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 current occupational exposures/hazards: No caffeine: Yes [facility] Anesthesia Checklist Patient Identification Patient Identification: Arm Band and Verbal (Name & ) Structural Data Admitted From: Home Planned Operative Procedure/s: Colonoscopy Consent for Planned Operative Procedure(s) Verified: Yes Verified Documents: Surgical Consent NPO Status Verified Time NPO: 04:00 Additional verifications Anesthesia Reactions: No Hx Blood Transfusions: No Blood Transfusion Reaction: No Airway Assessment C-Spine Mobility Assessed: Yes TMJ Mobility Assessed: Yes Dentition: Good Dentition Neurological Assessment Level of Consciousness: Awake, Alert and Appropriate Anesthesia Plan Anesthesia Risk discussed: Yes ASA Class: II Anesthesia Type: MAC
--- NOTE | 2022-02-14 11:05 | HMH.SCOPE ---
Procedure: Date: 02/14/22 Patient Date of :: 1965 Procedure Performed:: Colonoscopy Indications:: Screening Apparent small polyp transiently noted on prior colonoscopy in April 2020. This polyp was unable to be excised secondary to only transient visualization. Performing Provider:: Kamron Tyson MD Referring Provider:: . Sedation:: Monitored anesthesia care Procedure:: After informed consent was obtained the patient was taken to the endoscopy suite. Sedation ensued after the patient was transferred to the left lateral decubitus position. Pulse, blood pressure, and oxygen saturation were monitored throughout the procedure. Digital rectal exam revealed no significant abnormality. The colonoscope was placed in position. The entire colon was evaluated. The colonoscope was carefully removed and the patient was transferred to recovery in stable condition. Please see findings and specimens below for detail. Findings:: Bowel preparation fair to moderate Scattered diverticulosis Fairly significant lack of relaxation Specimens:: none Recommendations:: Repeat colonoscopy in 3 years secondary to ongoing limitations in visualization. Complications:: No immediate Estimated blood obtained (mL): 0
== END 2022-02-14 11:58 | disposition home or self-care (01) ==
PROVIDERS: PCP Nurse Practitioner Family; Visit Provider Surgery
PROC: 0DJD8ZZ Inspection of Lower Intestinal Tract, Via Natural or Artificial Opening Endoscopic (ICD-10-PCS; CPT 45378; principal; 2022-02-14 10:30)
DX: Z12.11 Encounter for screening for malignant neoplasm of colon (principal); Z86.010 Personal history of colon polyps; K57.90 Diverticulosis of intestine, part unspecified, without perforation or abscess without bleeding
CPT/HCPCS: 45378; J2704

== ENCOUNTER → 2022-02-24 10:49 | Outpatient (CLI) | payer BC, SELFPAY ==
--- NOTE | 2022-02-24 10:50 | MR_ITS ---
FINAL REPORT CLINICAL HISTORY: Cervical spine spondylosis with radiculopathy FINDINGS: Multi planar MR imaging was obtained of the cervical spine. There is abnormal decreased signal throughout the cervical discs. There is reversal of the cervical lordosis. The vertebrae are of normal height. There is no malalignment. The cervical cord demonstrates normal signal and configuration. C2-C3: There is no evidence of significant disc bulge or protrusion. There is no significant facet hypertrophy. C3-C4: There is a mild diffuse disc bulge with mild bilateral neural foraminal narrowing. C4-C5: There is a mild diffuse disc bulge with a right posterolateral disc protrusion. There is moderate right and mild left neural foraminal narrowing. C5-C6: There is a mild diffuse disc bulge with endplate hypertrophy. There is moderate right and mild left neural foraminal narrowing. C6-C7: There is a mild diffuse disc bulge with [id number] bilateral neural foraminal narrowing. C7-T1: There is no evidence of significant disc bulge or protrusion. There is no significant facet hypertrophy. IMPRESSION: Multilevel changes of degenerative disc disease at C4-5, C5-6 and C6-7. Correlate with any specific radicular symptoms. Reviewed, Interpreted and Dictated by Martinez Sadler MD Transcribed by Alexys Rebolledo Authenticated and [facility]
== END ==
PROVIDERS: PCP Nurse Practitioner Family; Visit Provider Specialist
DX: M47.22 Other spondylosis with radiculopathy, cervical region (principal); M54.81 Occipital neuralgia
CPT/HCPCS: 72141; 76376

== ENCOUNTER 2022-02-26 12:21 | Emergency (ER) | payer OTHER, SELFPAY ==
[2022-02-26 12:31] VITALS: BP 122/68; PULSE 70; RESP 16; TEMP 36.9; BMI 28.3
--- NOTE | 2022-02-26 12:44 | XR_ITS ---
PROCEDURE INFORMATION: Exam: XR Facial Bones, Minimum of 3 Views, Complete Exam date and time: 02/26/2022 12:50 PM Age: 56 years old Clinical indication: Face pain; Additional info: Fall TECHNIQUE: Imaging protocol: XR of the facial bones, minimum of 3 views. Complete exam. COMPARISON: CT HEAD/BRAIN WO CON 01/24/2022 3:02 PM FINDINGS: Sinuses: Well aerated. No opacification. Bones/joints: No fracture. Soft tissues: Unremarkable. IMPRESSION: Unremarkable.
--- NOTE | 2022-02-26 12:46 | XR_ITS ---
PROCEDURE INFORMATION: Exam: XR Left Knee Exam date and time: 02/26/2022 12:54 PM Age: 56 years old Clinical indication: Pain; Knee; Left; Additional info: Fall TECHNIQUE: Imaging protocol: Radiologic exam of the Left knee. Views: 3 views. COMPARISON: CR [id number] XR knee LT 4V 06/10/2018 8:23 AM FINDINGS: Bones/joints: Generalized osteopenia. Persistent degenerative changes medial knee compartment, patellofemoral articulation. Soft tissues: Normal. IMPRESSION: No evidence of acute osseous injury.
[2022-02-26 13:00] VITALS: BP 112/68; PULSE 70; RESP 16; TEMP 36.9; O2SAT 97; BMI 28.3
--- NOTE | 2022-02-26 13:01 | EXP.UTC ---
Discharge Plan Disposition Patient Disposition: Home, Self-Care Condition: Good Prescriptions Prescriptions: New mupirocin 2 % ointment 1 applic topical TID 7 Days Qty: 1 0RF No Action celecoxib 200 mg capsule 200 mg PO BID sertraline 100 MG tablet 100 mg PO DAILY Label Comments: levothyroxine 100 mcg tablet 100 mcg PO DAILY Label Comments: Referrals Follow up/Referrals: Jennifer Carlisle APRN [Primary Care Provider] - See instructions Donovan Patten MD [Staff Physician] - See instructions Activity Restrictions/Add. Instructions Additional Instructions/Restrictions: Rest the extremity, apply ice for 15 minutes as tolerated three or four times per day, Elevate the extremity as tolerated while you are resting. Take ibuprofen for pain if you are able to take it. If not, then take tylenol. Follow up with Dr. Patten (orthopedics). Sometimes there can be fractures that don't show up well on the first set of x-rays. I put in a referral but you need to call his office and schedule an appointment. Follow up with your regular doctor. GO TO THE ER FOR ANY WORSENING SYMPTOMS Clinical Impressions Clinical Impression: Contusion of face, Abrasion of face, Contusion of knee Stand Alone Forms Stand Alone Forms: Work/School Release Instructions Patient Instructions: DI for Knee Pain, DI for Abrasion, Mupirocin Discharge ED Provider: Jose Guadalupe Tobias [facility] General Stated complaint: fell at work, face , L knee Mode of Arrival: Ambulatory Source of Information: Patient Limitations: No Limitations Time Seen by Provider: 02/26/22 13:01 Description of Symptoms (Recalled from Triage Doc. by RN): pt fell at work states she tripped on carpet hitting lt knee and lt side of face. pt denies any c/o. pt denies any loc, nausea, vomiting History of Present Illness Provider Complaint: She fell while at work earlier today. She came down on her left knee and she hit her nose and right cheek area of her face on the ground. She did not lose consciousness or have any dizziness or headache after this injury. She denies any neck pain or additional injury. Related Data Home Medications Medication Instructions Recorded Confirmed sertraline 100 mg tablet 100 mg PO DAILY Depression 08/20/17 02/14/22 celecoxib 200 mg capsule 200 mg PO BID Pain 01/12/22 02/14/22 levothyroxine 100 mcg tablet 100 mcg PO DAILY hypothyroid 02/09/22 02/14/22 Previous Rx's Medication Instructions Recorded mupirocin 2 % topical ointment 1 applic topical TID 7 days #1 g 02/26/22 Allergies Allergy/AdvReac Type Severity Reaction Status Date / Time oxycodone [From Percocet] Allergy Unknown Hives Verified 02/14/22 09:46 PFSH PFSH Medical History Arthritis Colonoscopy planned Depression History of COVID-19 Hypothyroid Normal colonoscopy Occipital neuralgia of right side Thyroid disease Surgical History H/O left knee surgery History of left knee surgery Family History Brother Cancer Mother CHF (congestive heart failure) Father Family history of emphysema Family/Other Diabetes Social History Smoking Status: Never smoker second hand exposure: No alcohol intake: never substance use type: denies use current occupational status: employed Travel in the last 8 weeks: None household members: spouse housing: house marital status: number of children: 0 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
[2022-02-26 13:50] VITALS: BP 112/68; PULSE 70; RESP 16; TEMP 36.9; O2SAT 97
== END 2022-02-26 13:55 | disposition home or self-care (01) ==
PROVIDERS: Emergency Provider Nurse Practitioner Family; PCP Nurse Practitioner Family
DX: S00.83XA Contusion of other part of head, initial encounter (principal); S00.81XA Abrasion of other part of head, initial encounter; S80.02XA Contusion of left knee, initial encounter; W01.0XXA Fall on same level from slipping, tripping and stumbling without subsequent striking against object, initial encounter; Y99.0 Civilian activity done for income or pay; Z23 Encounter for immunization
CPT/HCPCS: 70150; 73562; 90471; 90715; 99213; G0463

== ENCOUNTER → 2022-03-14 12:11 | Outpatient (CLI) | payer BC, SELFPAY ==
--- NOTE | 2022-03-14 12:17 | XR_ITS ---
FINAL REPORT CLINICAL HISTORY: RT KNEE PAIN FINDINGS: Right knee Three views were obtained. There is no acute fracture or dislocation. There is mild tri compartment degenerative change. No soft tissue abnormality is identified. IMPRESSION: Mild tri compartment degenerative change. Reviewed, Interpreted and Dictated by Yfn Ryan III, MD Transcribed by Yana Mendes Authenticated and [facility]
== END ==
PROVIDERS: PCP Nurse Practitioner Family; Visit Provider Nurse Practitioner Family
DX: M25.561 Pain in right knee (principal)
CPT/HCPCS: 73562

== ENCOUNTER → 2022-03-24 10:23 | Outpatient (CLI) | payer OTHER, SELFPAY ==
--- NOTE | 2022-03-24 10:42 | MR_ITS ---
FINAL REPORT CLINICAL HISTORY: lt knee pain. prior surgery in knee years ago. knee pain after fall 1 month ago. knee instability. COMPARISON: 04/24/2018 FINDINGS: Multiplanar MR imaging of the left knee was performed without contrast. There are presumed postoperative changes of the medial meniscus without a convincing tear. The lateral meniscus is intact without evidence of meniscal tear. There is a chronic tear of the anterior cruciate ligament. The posterior cruciate ligament is intact. The medial collateral ligament and lateral ligamentous complex are intact. The patellar and quadriceps tendons are intact. There is no evidence of fracture. There are moderate degenerative changes. There is moderate to severe chondromalacia which has significantly progressed. There are multiple osteochondral lesions in the medial and lateral femoral condyles and the medial tibial plateau. A small joint effusion is seen. The musculature is intact. There is a small popliteal cyst. 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 Presumed postoperative changes of the medial meniscus without convincing tear. Significantly progressed moderate to severe chondromalacia. Reviewed, Interpreted and Dictated by Yfn Ryan III, MD Transcribed by Brinda Ontiveros Authenticated and . [facility]
== END ==
PROVIDERS: PCP Nurse Practitioner Family; Visit Provider Physician Assistant Surgical
DX: M25.562 Pain in left knee (principal); M25.462 Effusion, left knee
CPT/HCPCS: 73721

== ENCOUNTER → 2022-03-27 14:49 | Outpatient (POV) | payer BC, SELFPAY ==
[2022-03-27 15:12] VITALS: BP 117/61; PULSE 81; RESP 18; TEMP 37.2; O2SAT 97; BMI 28.3
--- NOTE | 2022-03-27 15:44 | EXP.PAIN.SOA ---
[facility] Pain Management SOAP Note Subjective:: Patient is a pleasant 56-year-old female who presents today for follow-up. We are currently treating the patient for right occipital neuralgia. Today the patient rates her pain a 8 out of 10. She states the pain is all around her right occipital region and does frequently cause headache along with some radiating symptoms into her right shoulder. Patient states she feels like she has a knot in this location and it constantly stays sore. Patient does describe the pain as a throbbing tooth ache like sensation. Patient has had a occipital nerve block in the past however this did not provide additional improvement of her symptoms. Patient stated she had little to no relief following this injection. Patient has tried lwaw-laa-gstzsxa medications such as NSAIDs, Medrol Dosepak, gabapentin, Celebrex with no improvement of her symptoms. Patient states she has had injections in the past including epidurals in her low back and knee however none of these injections have provided any relief. Patient has been seen Dr. Stephens for her chronic refractory occipital headache and occipital pain. Patient has had an MRI of her cervical spine showing multilevel degenerative disc disease. Patient is not currently on any scheduled medications. Her Janusz is [id number]. Its been reviewed and appropriate. Review of Systems: General: No recent weight changes, no fever, no sleep disturbances Respiratory: No cough, no shortness of air, no recurring pulmonary infections Cardiovascular/peripheral vascular: No chest pain, no palpitations, no edema, no shortness of breath Gastrointestinal: No new onset incontinence, normal bowel movements reported Genitourinary: No new onset incontinence Musculoskeletal: Occipital pain right-sided Psychiatric: [Normal mood/affect] Neurological: [Denies weakness in extremities], [denies balance issues] Objective:: Physical Exam: General: Alert and oriented x3, no acute distress, pleasant and cooperative Lungs: Respirations even and unlabored, symmetrical chest expansion Eyes: PERRL Musculoskeletal: Flexion and extension of cervical spine somewhat guarded secondary to pain, [antalgic gait noted]. Point tenderness along right occipital region behind right ear Neurological: Speech clear, no gross sensory deficit [address] [place] [address] Magnetic Resonance Report Signed Patient: Milla Reis MR#: [id number] : 1965 Acct:[id number] Age/Sex: 56 / F ADM Date: 02/24/22 Loc: RAD Attending Dr: Kim Stephens MD Ordering Physician: Kim Stephens MD Date of Service: 02/24/22 Procedure(s): MR cervical spine wo con Accession Number(s): [id number] cc: Jennifer Carlisle APRN; Martinez Sadler MD~ FINAL REPORT CLINICAL HISTORY: Cervical spine spondylosis with radiculopathy FINDINGS: Multi planar MR imaging was obtained of the cervical spine. There is abnormal decreased signal throughout the cervical discs.? There is reversal of the cervical lordosis.? The vertebrae are of normal height. There is no malalignment. The cervical cord demonstrates normal signal and configuration. C2-C3: There is no evidence of significant disc bulge or protrusion.? There is no significant facet hypertrophy.? C3-C4: There is a mild diffuse disc bulge with mild bilateral neural foraminal narrowing.? C4-C5:? There is a mild diffuse disc bulge with a right posterolateral disc protrusion.? There is moderate right and mild left neural foraminal narrowing.? C5-C6:? There is a mild diffuse disc bulge with endplate hypertrophy.? There is moderate right and mild left neural foraminal narrowing. C6-C7:? There is a mild diffuse disc bulge with oivi-yj-mrmtvzdl bilateral neural foraminal narrowing.? C7-T1: There is no evidence of significant disc bulge or protrusion.? There is no significant facet hypertr
== END ==
PROVIDERS: PCP Nurse Practitioner Family; Visit Provider Nurse Practitioner Family
DX: M54.81 Occipital neuralgia (principal); Z79.899 Other long term (current) drug therapy
CPT/HCPCS: 99212; G0463

== ENCOUNTER → 2022-03-31 13:10 | Outpatient (POV) | payer BC, SELFPAY ==
[2022-03-31 13:54] VITALS: BP 122/65; PULSE 79; RESP 20; TEMP 36.2; O2SAT 97; BMI 28.3
--- NOTE | 2022-03-31 14:41 | A.OFFVIS_ITS ---
[facility] Pain Management SOAP Note Subjective:: This patient is a pleasant 56-year-old white female who we are treating for right occipital neuralgia and some increasing neck pain. She is had a right occipital nerve block which did not give her adequate pain relief. Her MRI of the cervical spine does show degenerative changes with bulging disc and neuroforaminal narrowing at C5-C6 and C6-C7. I believe most of her pain may be coming from her neck. Since she did not get any relief from the occipital nerve block I do believe she would benefit from a cervical epidural steroid injection. Objective:: Alert and oriented x3 no acute distress. Patient does have decreased range of motion of the cervical spine. Motor strength of the upper extremities is 5/5. There is no gross sensory deficit. Assessment:: Degenerative disc disease of the cervical spine with cervical radiculopathy symptoms Plan:: We will seek approval and plan on a cervical epidural steroid injection under fluoroscopy at C5-C6. We will be targeting her right neck and occipital area. [facility] Medical History Arthritis Colonoscopy planned Depression History of COVID-19 Hypothyroid Normal colonoscopy Occipital neuralgia of right side Thyroid disease Surgical History H/O left knee surgery History of left knee surgery Family History Brother Cancer Mother CHF (congestive heart failure) Father Family history of emphysema Family/Other Diabetes Social History Smoking Status: Never smoker second hand exposure: No alcohol intake: never substance use type: denies use current occupational status: other Travel in the last 8 weeks: None household members: spouse housing: house marital status: number of children: 0 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
== END ==
PROVIDERS: PCP Nurse Practitioner Family; Visit Provider Anesthesiology
DX: M50.123 Cervical disc disorder at C6-C7 level with radiculopathy (principal)
CPT/HCPCS: 99212; G0463

== ENCOUNTER 2022-04-11 13:48 | Outpatient (RCR) | payer OTHER, SELFPAY ==
--- NOTE | 2022-04-11 15:17 | HMH.PTOPEV ---
PT Outpatient Evaluation Rehab PT Outpatient Evaluation Start: 04/11/22 14:06 Freq: Status: Active Protocol: Document 04/11/22 14:07 MARYJANE (Rec: 04/11/22 15:16 FALLONANUP [id number]) E-signed By Teddy Loredo, PT Outpatient Therapy Subjective History Subjective History This is the initial Physical Therapy evaluation for Milla Reis. Pt is a 57 y/o female referred to PTs/p trip and fall at work. 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 Pt reports she spun around to go into the bathroom to clean and tripped over the carpet I guess . Pt states she landed on B knees and face. Pt went to ED for xrays and contusion/abrasions. Pt has had MRI on knee and seen orthopedic for pain, who referred her to PT. Chief Complaint Pain,Stiff Symptom Type Ache,Throb,Sharp,Dull Symptoms Relieved By Rest/Positioning Symptoms Aggravated By Standing,Physical Activity, Walking Prior Functional Limitations None Current Functional Limitations Housework,Standing,Squatting, Recreation Activity,Walking, Stairs Symptom Description Constant but Variable Level of pain today (0-10) 2 Pain scale - at its best (0-10) 2 Pain scale - at its worst (0-10) 7 Hip/Knee Eval Gait Observation General Gait Pattern Observation Antalgic Gait,Decrease Weight Bear (R),Decrease Weight Bear (L) Assistive Device Assistive Devices None / NA Palpation Tenderness bilateral Knee Palpation Finding Tenderness Knee Palpation Overall Comment TTP patlla, patellar tendon, pes anserine, med/lat jt line MMT Knee Extension Strength Grade 5 Normal Knee Flexion Strength Grade 4 Good ROM left Knee Extension Active Range of Motion ( 0 degrees) Knee Flexion Active Range of Motion ( 110 degrees) right Knee Extension Active Range of Motion ( 0 degrees) Knee Flexion Active Range of Motion ( 120 degrees) Special Tests Knee Jameel Test Negative Left,Negative Right Patellar Grind Test Positive Left,Positive Right Patellar Compression Test Positive Left,Positive Right Outpatie
== END 2022-04-11 13:50 | disposition home or self-care (01) ==
LOC: PT 13:48
PROVIDERS: Visit Provider Orthopaedic Surgery
DX: M25.562 Pain in left knee (principal)
CPT/HCPCS: 97110; 97163

== ENCOUNTER → 2022-04-18 08:32 | Outpatient (POV) | payer BC, SELFPAY ==
[2022-04-18 08:38] VITALS: BP 139/64; PULSE 67; RESP 18; O2SAT 99; BMI 28.3
--- NOTE | 2022-04-18 08:47 | EXP.PAIN.SOA ---
[facility] Pain Management SOAP Note Subjective:: Patient is a pleasant 57-year-old female who presents today for follow-up of cervical epidural denial. We are currently treating the patient for right occipital neuralgia, degenerative disc disease of cervical spine multilevel with cervical radiculopathy symptoms. Today she rates her pain a 7 out of 10. Patient denies any new trauma or injury. Patient denies any change to location or type of pain she experiences. Patient states her pain is all in her upper back that radiates into her neck and head and describes it as a aching, throbbing sensation that is worse with increased activity. Patient is experiencing significant headaches and we have tried in the past a occipital nerve block however patient had minimal to no relief with this injection. She states her worsening upper back/neck pain limits her ability to perform activities of daily living such as doing the dishes or light housekeeping. Patient has decreased function due to her worsening pain. Patient does use tfoy-zzo-liqgffw Tylenol arthritis with minimal improvement of her symptoms. Patient has also tried heat and ice as well as topical creams such as Biofreeze and compounding cream with minimal improvement. Patient has had physical therapy this year however this only provided minimal relief and she continues to do at home exercising and stretching techniques for longer than 6 weeks with worsening pain. Patient is currently managed with gabapentin 300 mg once a day from an outside provider. Patient denies any side effects from this medication. She states this medication does help with some of her pain symptoms. Her Janusz is [id number]. It has been reviewed and appropriate. Review of Systems: General: No recent weight changes, no fever, no sleep disturbances Respiratory: No cough, no shortness of air, no recurring pulmonary infections Cardiovascular/peripheral vascular: No chest pain, no palpitations, no edema, no shortness of breath Gastrointestinal: No new onset incontinence, normal bowel movements reported Genitourinary: No new onset incontinence Musculoskeletal: Neck pain, headache, upper back pain Psychiatric: [Normal mood/affect] Neurological: [Denies weakness in extremities], [denies balance issues] Objective:: Physical Exam: General: Alert and oriented x3, no acute distress, pleasant and cooperative Lungs: Respirations even and unlabored, symmetrical chest expansion Eyes: PERRL Musculoskeletal: Flexion and extension of cervical [spine] somewhat guarded secondary to pain, [antalgic gait noted] Neurological: Speech clear, no gross sensory deficit FINDINGS: Multi planar MR imaging was obtained of the cervical spine. There is abnormal decreased signal throughout the cervical discs.? There is reversal of the cervical lordosis.? The vertebrae are of normal height. There is no malalignment. The cervical cord demonstrates normal signal and configuration. C2-C3: There is no evidence of significant disc bulge or protrusion.? There is no significant facet hypertrophy.? C3-C4: There is a mild diffuse disc bulge with mild bilateral neural foraminal narrowing.? C4-C5:? There is a mild diffuse disc bulge with a right posterolateral disc protrusion.? There is moderate right and mild left neural foraminal narrowing.? C5-C6:? There is a mild diffuse disc bulge with endplate hypertrophy.? There is moderate right and mild left neural foraminal narrowing. C6-C7:? There is a mild diffuse disc bulge with buzh-ae-urzrgpsj bilateral neural foraminal narrowing.? C7-T1: There is no evidence of significant disc bulge or protrusion.? There is no significant facet hypertrophy. IMPRESSION: Multilevel changes of degenerative disc disease at C4-5, C5-6 and C6-7.? Correlate with any specific radicular symptoms. Reviewed, Interpreted and Dictated by Martinez Sadler MD Transcribed by Alexys Rebolledo Authenticated and Electronically Signed by Martinez Sadler MD on
== END ==
PROVIDERS: PCP Nurse Practitioner Family; Visit Provider Nurse Practitioner Family
DX: M50.122 Cervical disc disorder at C5-C6 level with radiculopathy (principal); M54.81 Occipital neuralgia; G89.29 Other chronic pain
CPT/HCPCS: 99212; G0463

== ENCOUNTER → 2022-05-15 13:29 | Outpatient (POV) | payer BC, SELFPAY ==
[2022-05-15 13:43] VITALS: RESP 8; BMI 28.3
--- NOTE | 2022-05-15 16:05 | EXP.PAIN.SOA ---
[facility] Pain Management SOAP Note Subjective:: Patient is a pleasant 57-year-old female who presents today for follow-up of the second cervical epidural denial.? We are currently treating the patient for right occipital neuralgia, degenerative disc disease of cervical spine multilevel with cervical radiculopathy symptoms.? Today she rates her pain a 10 out of 10.? Patient denies any new trauma or injury.? Patient denies any change to location or type of pain she experiences.? Patient states her pain is in her upper back that radiates into her neck. She states this is an aching, throbbing sensation that is worse with increased activity.? Patient states she does have difficulty performing activities of daily living such as doing the dishes or light housekeeping due to her worsening pain symptoms.? Patient does use snze-eib-miprwau Tylenol arthritis with minimal improvement of her symptoms.? Patient has also tried heat and ice as well as topical creams such as Biofreeze and compounding cream with minimal improvement.? Patient has had physical therapy this year however this only provided minimal relief and she continues to do at home exercising and stretching techniques for longer than 6 weeks with worsening pain.? Patient is currently managed with gabapentin 300 mg once a day from an outside provider.? Patient denies any side effects from this medication.? She states this medication does help with some of her pain symptoms.? Her Janusz is [id number].? It has been reviewed and appropriate. Review of Systems: General: No recent weight changes, no fever, no sleep disturbances Respiratory: No cough, no shortness of air, no recurring pulmonary infections Cardiovascular/peripheral vascular: No chest pain, no palpitations,? no edema, no shortness of breath Gastrointestinal: No new onset incontinence, normal bowel movements reported Genitourinary: No new onset incontinence Musculoskeletal: Neck pain, headache, upper back pain Psychiatric: [Normal mood/affect] Neurological: [Denies weakness in extremities], [denies balance issues] Objective:: Physical Exam: General: Alert and oriented x3, no acute distress, pleasant and cooperative Lungs: Respirations even and unlabored, symmetrical chest expansion Eyes: PERRL Musculoskeletal: Flexion and extension of cervical [spine] somewhat guarded secondary to pain, [antalgic gait noted] Neurological: Speech clear,? no gross sensory deficit FINDINGS: Multi planar MR imaging was obtained of the cervical spine. There is abnormal decreased signal throughout the cervical discs.? There is reversal of the cervical lordosis.? The vertebrae are of normal height. There is no malalignment. The cervical cord demonstrates normal signal and configuration. C2-C3: There is no evidence of significant disc bulge or protrusion.? There is no significant facet hypertrophy.? C3-C4: There is a mild diffuse disc bulge with mild bilateral neural foraminal narrowing.? C4-C5:? There is a mild diffuse disc bulge with a right posterolateral disc protrusion.? There is moderate right and mild left neural foraminal narrowing.? C5-C6:? There is a mild diffuse disc bulge with endplate hypertrophy.? There is moderate right and mild left neural foraminal narrowing. C6-C7:? There is a mild diffuse disc bulge with zooq-go-sopvdxwk bilateral neural foraminal narrowing.? C7-T1: There is no evidence of significant disc bulge or protrusion.? There is no significant facet hypertrophy. IMPRESSION: Multilevel changes of degenerative disc disease at C4-5, C5-6 and C6-7.? Correlate with any specific radicular symptoms. Reviewed, Interpreted and Dictated by Martinez Sadler MD Transcribed by Alexys Rebolledo Authenticated and [facility] Assessment:: Degenerative disc disease of cervical spine multilevel with cervical radiculopathy symptoms, occipital neuralgia, chronic neck pain Plan:: Patient co
== END ==
PROVIDERS: PCP Nurse Practitioner Family; Visit Provider Nurse Practitioner Family
DX: M50.123 Cervical disc disorder at C6-C7 level with radiculopathy (principal); M54.81 Occipital neuralgia; G89.29 Other chronic pain
CPT/HCPCS: 99212; G0463

== ENCOUNTER 2022-06-20 08:14 | Day surgery (SDC) | payer BC, SELFPAY ==
[2022-06-20 08:25] VITALS: BP 136/87; PULSE 72; RESP 18; TEMP 36.5; O2SAT 98; BMI 28.3
[2022-06-20 08:44] VITALS: BP 124/87; PULSE 80; RESP 18; O2SAT 98
[2022-06-20 08:45] VITALS: BP 124/87; PULSE 80; RESP 18; O2SAT 98
[2022-06-20 08:51] VITALS: BP 113/76; PULSE 63; RESP 18; O2SAT 97
--- NOTE | 2022-06-20 09:00 | P.PCN_ITS ---
Procedure Date: 06/20/22 Time: 08:30 Anesthesiologist:: Anthony Martinez CRNA Complications:: None Pre-procedure Diagnosis:: Degenerative disc disease cervical spine multilevels. Cervical radiculopathy Post-procedure Diagnosis:: Same. Indications for Procedure:: Patient is a pleasant 57-year-old female comes our clinic today for an initial cervical epidural steroid injection C6-7. Patient complains of cervical neck pain as well as bilateral arm radicular symptoms at times. She rates her pain 7/10. Procedure Details:: Procedure:Cervical epidural steroid injection Informed consent was obtained and the risks and benefits of the procedure were explained to the patient. The patient was taken to the procedure room and noninvasive monitors placed, including noninvasive blood pressure cuff and pulse oximeter. The neck was prepped using Chloraprep as a cleansing solution. The C6- C7 interspace was viewed using fluroscopy. The skin and subcutaneous tissues were anesthetized using lidocaine 1.5% and a 25-gauge needle. After this an 18-gauge Touhy epidural needle was placed into the C6-C7 interspace under fluroscopy guidance and advanced using loss of resistance to air until the epidural space was encountered. After confirmation of needle placement in the epidural space using contrast dye, a solution containing normal saline, 2 mL and Depo-Medrol 80 mg was incrementally injected into the cervical epidural space.~ The patient tolerated the procedure well with no complications. The patient was observed in the Pain Clinic and then discharged home neurologically intact. Plan and Disposition:: Patient was discharged without incident.
== END 2022-06-20 08:51 | disposition home or self-care (01) ==
PROVIDERS: PCP Nurse Practitioner Family; Visit Provider Nurse Anesthetist, Certified Registered
DX: M50.123 Cervical disc disorder at C6-C7 level with radiculopathy (principal)
CPT/HCPCS: 62321; J1040; Q9966

== ENCOUNTER → 2022-07-03 08:34 | Outpatient (POV) | payer BC, SELFPAY ==
[2022-07-03 09:19] VITALS: BP 133/67; PULSE 67; RESP 18; O2SAT 98; BMI 28.3
--- NOTE | 2022-07-03 16:17 | EXP.PAIN.SOA ---
[facility] Pain Management SOAP Note Subjective:: Patient is a pleasant 57-year-old female who presents today for follow-up of cervical epidural of C6-C7 on 06/20/2022. We are currently treating the patient for degenerative disc disease of cervical spine multilevel with cervical radiculopathy symptoms, right occipital neuralgia. Today she states she has had at least 50% improvement following this injection and feels like it still continuing to provide some relief. She rates her pain today a 5 out of 10. Patient denies any new trauma or injury. Patient does state that she has a new onset of numbness in her feet that has been going on for approximately 3 to 4 days. She states this is a constant numbness/tingling sensation that is unrelated to any specific activities. Patient is on Celebrex and ibuprofen and states these medications do help some of her pain symptoms. Patient is also tried [id number] Tylenol arthritis and heat and ice. Patient was prescribed compounding cream in the past with some additional improvement. Patient states she has not tried this cream on her feet. Patient states that she does not know if she still has the number for the pharmacy in [place] and is requesting it at today's visit for refill. Patient was previously prescribed gabapentin 300 mg daily by an outside provider however she states she was unable to tolerate this due to increased grogginess and feeling hung over. Her Janusz is [id number]. Its been reviewed and appropriate. Review of Systems: General: No recent weight changes, no fever, no sleep disturbances Respiratory: No cough, no shortness of air, no recurring pulmonary infections Cardiovascular/peripheral vascular: No chest pain, no palpitations, no edema, no shortness of breath Gastrointestinal: No new onset incontinence, normal bowel movements reported Genitourinary: No new onset incontinence Musculoskeletal: Feet numbness/tingling Psychiatric: [Normal mood/affect] Neurological: [Denies weakness in extremities], [denies balance issues] Objective:: Physical Exam: General: Alert and oriented x3, no acute distress, pleasant and cooperative Lungs: Respirations even and unlabored, symmetrical chest expansion Eyes: PERRL Musculoskeletal: Flexion and extension of cervical [spine] somewhat guarded secondary to pain, [antalgic gait noted] Neurological: Speech clear, no gross sensory deficit ORT score updated with low risk Assessment:: Degenerative disc disease of cervical spine multilevel with cervical radiculopathy symptoms, right occipital neuralgia, bilateral feet pain/numbness Plan:: Patient is experiencing new onset feet numbness and tingling along with some continued upper back pain. I have counseled the patient to try her compounding cream for her bilateral feet and given her the [place] pharmacy's number to contact for her refill. I have discussed with the patient that we can try pregabalin or gabapentin to help with her neuropathy symptoms at a low dose however at this time she would like to wait. Patient is scheduled to come see us later this week for a workers comp related injury. Patient has been instructed to contact the clinic with any concerns before the next appointment. Dr. Sharma has reviewed this note and agrees with this plan of care. This note was dictated using voice recognition software and make contain errors or omissions. [facility] Disclaimer: The information contained in this section may have been updated after the patient was seen, as this information can be updated by other users. Medical History Arthritis Colonoscopy planned Depression History of COVID-19 Hypothyroid Normal colonoscopy Occipital neuralgia of right side Thyroid disease Surgical History H/O left knee surgery History of left knee surgery Family History Brother
== END ==
PROVIDERS: PCP Nurse Practitioner Family; Visit Provider Nurse Practitioner Family
DX: M50.123 Cervical disc disorder at C6-C7 level with radiculopathy (principal); M54.81 Occipital neuralgia; R20.0 Anesthesia of skin; M79.671 Pain in right foot; M79.672 Pain in left foot
CPT/HCPCS: 99212; G0463

== ENCOUNTER → 2022-07-05 14:40 | Outpatient (POV) | payer OTHER, SELFPAY | PROVIDERS: PCP Nurse Practitioner Family; Visit Provider Nurse Practitioner Family | DX: M50.30 Other cervical disc degeneration, unspecified cervical region (principal) ==

== ENCOUNTER → 2022-08-03 07:43 | Outpatient (CLI) | payer BC, SELFPAY ==
--- NOTE | 2022-08-03 07:46 | MM_ITS ---
PROCEDURE INFORMATION: Exam: MG Bilateral Screening 3D Mammography Exam date and time: 08/03/2022 8:03 AM Age: 57 years old Clinical indication: Screening mammogram TECHNIQUE: Imaging protocol: Bilateral Screening tomosynthesis and 2D mammography including computer-aided detection (CAD) when performed. COMPARISON: 1. MG DMSB DIG MAMM-SCREEN RA W/CAD 08/17/2016 3:52 PM 2. MG DMDXUAVR DIG MAMM-DX UNI ADD VIEWS-RT 07/02/2014 3:10 PM 3. MG DMSB DIG MAMM-SCREEN RA 06/22/2014 9:38 AM 4. MG DIGMAMMS MAMMOGRAM SCREEN-MECHANIC AND WELDER N/C 01/03/2010 10:18 AM FINDINGS: MAMMOGRAPHY: Breast composition: There are scattered areas of fibroglandular density. Mass: None. Architectural distortion: No new or suspicious architectural distortion. Calcifications: No new or suspicious calcifications are present Asymmetric density: No new or suspicious asymmetric density is present Skin thickening: None. Axillary adenopathy: None. IMPRESSION: No mammographic evidence of malignancy. Recommend annual screening mammography unless otherwise clinically indicated. ASSESSMENT: BI-RADS category 1: Negative
== END ==
PROVIDERS: PCP Nurse Practitioner Family; Visit Provider Nurse Practitioner Family
DX: Z12.31 Encounter for screening mammogram for malignant neoplasm of breast (principal)
CPT/HCPCS: 77063; 77067

== ENCOUNTER 2022-09-14 14:00 | Outpatient (RCR) | payer BC, SELFPAY | END 2022-09-14 14:05 | disposition home or self-care (01) | LOC: PT 14:00 | PROVIDERS: PCP Nurse Practitioner Family; Visit Provider Orthopaedic Surgery | DX: M54.2 Cervicalgia (principal); M25.78 Osteophyte, vertebrae | CPT/HCPCS: 97010; 97014; 97035; 97110; 97140; 97163; G0283 ==

== ENCOUNTER → 2023-02-27 10:53 | Outpatient (CLI) | payer BC, SELFPAY ==
--- NOTE | 2023-02-27 10:54 | MR_ITS ---
FINAL REPORT TECHNIQUE: Multiplanar and multisequence imaging the right knee was obtained without contrast. CLINICAL HISTORY: Rt Knee Pain after a fall at work x 1 year ago COMPARISON: None FINDINGS: Bones: There is no acute fracture or marrow edema. There is tricompartment degenerative joint disease present, with chondromalacia present in all 3 compartments. There are partial-thickness osteochondral defects in the lateral patellar facet, the medial femoral condyle and the lateral femoral condyle. Menisci: There is no residual anterior horn of the lateral meniscus, likely macerated. The medial meniscus is intact. Ligaments: No cruciate or collateral ligament tear is present. Tendons/Muscles: The quadriceps and patellar tendons are within normal limits. The biceps femoris tendon and iliotibial tract are intact. The popliteus tendon is normal. Other: There is a moderate to large joint effusion present. A popliteal cyst is present as well. IMPRESSION: Tricompartment degenerative change and chondromalacia as described. The anterior horn of the lateral meniscus is not visualized, and is likely macerated. Moderate to large joint effusion and popliteal cyst. Reviewed, Interpreted and Dictated by Paula Dougherty MD Transcribed by Kita Georges Authenticated and . [facility]
== END ==
PROVIDERS: PCP Nurse Practitioner Family; Visit Provider Orthopaedic Surgery
DX: M25.561 Pain in right knee (principal); M23.91 Unspecified internal derangement of right knee
CPT/HCPCS: 73721

== ENCOUNTER 2023-05-18 09:00 | Outpatient (RCR) | payer BC, SELFPAY ==
--- NOTE | 2023-03-09 08:27 | HMH.PTOPEV ---
PT Outpatient Evaluation Rehab PT Outpatient Evaluation Start: 03/09/23 08:15 Freq: Status: Active Protocol: Document 03/09/23 08:15 YONIS (Rec: 03/09/23 08:27 YONIS [id number]) E-signed By Ricky Metzger, PT Outpatient Therapy Subjective History Subjective History Pt reports h/o chronic left knee pain for 'years' with recent exacerbation over the last 6 months. Pt reports anterior left knee pain globally, and h/o 'cartilage damage, and a surgery for it back in '. Pt reports ortho consult on 04/05/23 to decide on TKA for left. Pt reports medial > lateral aspect left knee pain this am. New diagnosis of cancer in past 12 No months? Chief Complaint Pain,Stiff,Swelling Symptom Type Ache,Sharp,Dull Symptoms Relieved By Rest/Positioning Symptoms Aggravated By Standing,Physical Activity, Walking Prior Functional Limitations Housework,Standing,Walking, Stairs Current Functional Limitations Housework,Standing,Walking, Stairs Symptom Description Constant but Variable Level of pain today (0-10) 5 Pain scale - at its best (0-10) 5 Pain scale - at its worst (0-10) 9 Hip/Knee Eval Gait Observation General Gait Pattern Observation Antalgic Gait,Wide Based Gait Assistive Device Assistive Devices None / NA Palpation Tenderness left Knee Palpation Finding Tenderness Knee Palpation Overall Comment 3/4 medial, lateral jt line MMT right Hip Flexion Strength Grade 4 Good Hip Abduction Strength Grade 4 Good Hip Adduction Strength Grade 4 Good Hip Extension Strength Grade 4 Good Hip External Rotation Strength Grade 5 Normal Hip Internal Rotation Strength Grade 5 Normal Knee Extension Strength Grade 5 Normal Knee Flexion Strength Grade 5 Normal left Hip Flexion Strength Grade 4 Good Hip Abduction Strength Grade 4- Good- Hip Adduction Strength Grade 4 Good Hip Extension Strength Grade 4 Good Hip External Rotation Strength Grade 4 Good Hip Internal Rotation Strength Grade 4 Good Knee Extension Strength Grade 4 Good Knee Flexion Strength Grade 4 Good ROM Knee Flexion Active Range of Motion ( 4-0-115 degrees) Effusion joint effusion knee exam standard left Mid - Patellar Circumerential Measure ( 43.5 cm) Lower Extremity Functional Index Activities Today, do you or would you have any difficulty at all with: a.Any of your usual work, housework or Quite a bit of difficulty school activities b. Your usual hobbies, recreational or Quite a bit of difficulty sporting activities c. Getting into or out of the bath Extreme difficulty or unable to perform activity d. Walking between rooms Quite a bit of difficulty e. Putting on your shoes or socks Moderate difficulty f. Squatting Extreme difficulty or unable to perform activity g. Lifting an object, like a bag of Quite a bit of difficulty groceries from the floor h. Performing light activities around Quite a bit of difficulty your home i. Performing heavy activities around Quite a bit of difficulty your home j. Getting into or out of a car Moderate difficulty k. Walking 2 blocks Extreme difficulty or unable to perform activity l. Walking a mile Extreme difficulty or unable to perform activity m. Going up or down 10 stairs (about 1 Extreme difficulty or unable flight of stairs) to perform activity n. Standing for 1 hour Moderate difficulty o. Sitting for 1 hour A little bit of difficulty p. Running on even ground Extreme difficulty or unable to perform activity q. Running on uneven ground Extreme difficulty or unable to perform activity r. Making sharp turns while running fast Quite a bit of difficulty s. Hopping Extreme difficulty or unable to perform activity t. Rolling over in bed Moderate difficulty LEFI Score Lower Extremity Functional Index Score 18 Outpatient Therapy Assessment Impairments Problems/Impairmments Palpation Tenderness,Impaired Range of Motion,Impaired Strength,Impaired Gait Pattern ,Impaired Walking,Impaired Standing,Impaired Household Care,Impaired Stair Climbing, Impaired Squatting,Increased Edema,Subjective C/O Pain, Impaired Self Care/Self Management Prognosis Rehab Potential Good Clinical Impression Consistent with Diagnosis Yes Consistent with left knee pain Short Term Goals Number of Weeks 4 Decreased Palpation Tenderness Yes: 1-2/4 left knee Increase Range of Motion Yes: 0-120 left knee AROM Increase Strength Yes: 4/5 LLE Increase Ability to Walk Yes: 30MIN Increase Ability to Stand Yes: 30MIN Improve Ability For Household Care Yes: 30MIN Decrease Edema Yes: WFL LLE Decrease Subjective C/O Pain Yes: 3-4/10 W/ABOVE ACTIVITIES Patient to be Ind w/ HEP Yes Halfway Goals Number of Weeks 6-8 Decreased Palpation Tenderness Yes: 0-1/4 LEFT KNEE Increase Range of Motion Yes: 0-125-130 LEFT KNEE AROM Increase Strength Yes: 4+-5/5 LLE Improve Gait Pattern without Assistive Yes: WFL ON LEVEL TERRAIN Device Increase Ability to Walk Yes: 60MIN Increase Ability to Stand Yes: 60MIN Improve Ability For Household Care Yes: 60MIN Improve Ability to Climb Stairs Yes: WFL HHAX1 Decrease Subjective C/O Pain Yes: 0-2/10 W/ABOVE ACTIVITIES Patient to be Ind w/ Advanced HEP Yes Outpatient Therapy Plan of Care Treatment Plan May Include Therapeutic Exercise Including Home Yes Exercise Program Manual Therapy Techniques Yes Neuromuscular Re-education Yes Therapeutic Activities to Return to Yes Previous Functional/Work Level Gait Training Yes ADL/Self Care Education Yes Dry Needling Yes Thermal Modalities Yes Electrical Stimulation Yes Ultrasound/Phonophoresis Yes Iontophoresis Yes Vasopneumatic Compression Pump Yes Eval/Re-Eval Yes Frequency Times per week 2-3 Duration Number of Weeks 6-8 Addendums This patient is a candidate for social No or vocational rehab? Patient/Guardian verbally acknowledges Yes understanding of treatment program and consents to further treatment? Patient/Guardian verbally acknowledges Yes understanding of diagnosis, prognosis and goals for treatment? Eval Complexity PT Charges 33450 - Low Complexity Shoulder/Elbow Eval Shoulder Objective Measurements Elbow Objective Measurements PHYSICIAN CERTIFICATION: I certify the specified therapy services for Milla Reis are required, authorized, and reviewed every 30 days.
--- NOTE | 2023-04-10 16:07 | HMH.RHREAS ---
Rehab Reassessment Rehab OP Re-assessment Start: 03/09/23 08:15 Freq: Status: Active Protocol: Document 04/10/23 15:41 YONIS (Rec: 04/10/23 16:05 YONIS [id number]) E-signed By Ricky Metzger, PT Rehab Re-assessment Subjective Subjective Pt reports 01/11 anterior left knee pain on VAS and feels no significant improvement in left function since I eval. Objective Objective Notes AROM: LEFT KNEE 4-0-121 TTP: LEFT KNEE MEDIAL JT LINE 3/4, PATELLAR TENDON 3/4, LATERAL JT LINE 2-3/4 MMT: LEFT HIP FLX 4-4+/5, L KNEE EXT 4+/5, L KNEE FLX 4-4+ /5, L HIP ABD,ADD,EXT 4/5 Assessment Progress Assessment Progressing as Expected Assessment Notes IMPROVED STRENGTH, AND ROM, HOWEVER TTP AND SUBJECTIVE REPORTS NO CHANGES OR WORSENED Patient goals met STG'S 09/10 Goals Not Met STG'S 10/10, LTG'S 03/13 Plan Plan Pt to continue w/skilled P.T. to make further improvements in ROM, strength, and TTP to allow for optimal function Frequency of Therapy 1-2x/wk Duration of therapy 3-5wks Time and Billing Re-Eval Time 12 Re-Eval Billing Units 1 PHYSICIAN CERTIFICATION: I certify the specified therapy services for Milla Reis are required, authorized, and reviewed every 30 days.
--- NOTE | 2023-05-08 09:48 | HMH.RHREAS ---
Rehab Reassessment Rehab OP Re-assessment Start: 03/09/23 08:15 Freq: Status: Active Protocol: Document 05/08/23 09:43 GOLDIEASPEN (Rec: 05/08/23 09:48 [email or web address] [id number]) E-signed By Ricky Metzger, PT Lower Extremity Functional Index Activities Today, do you or would you have any difficulty at all with: a.Any of your usual work, housework or Quite a bit of difficulty school activities b. Your usual hobbies, recreational or Extreme difficulty or unable sporting activities to perform activity c. Getting into or out of the bath A little bit of difficulty d. Walking between rooms A little bit of difficulty e. Putting on your shoes or socks A little bit of difficulty f. Squatting Extreme difficulty or unable to perform activity g. Lifting an object, like a bag of A little bit of difficulty groceries from the floor h. Performing light activities around Extreme difficulty or unable your home to perform activity i. Performing heavy activities around Extreme difficulty or unable your home to perform activity j. Getting into or out of a car Moderate difficulty k. Walking 2 blocks Extreme difficulty or unable to perform activity l. Walking a mile Extreme difficulty or unable to perform activity m. Going up or down 10 stairs (about 1 Extreme difficulty or unable flight of stairs) to perform activity n. Standing for 1 hour Moderate difficulty o. Sitting for 1 hour A little bit of difficulty p. Running on even ground Extreme difficulty or unable to perform activity q. Running on uneven ground Extreme difficulty or unable to perform activity r. Making sharp turns while running fast Extreme difficulty or unable to perform activity s. Hopping Extreme difficulty or unable to perform activity t. Rolling over in bed Moderate difficulty LEFI Score Lower Extremity Functional Index Score 22 Rehab Re-assessment Subjective Subjective Pt reports improved left knee pain since last reassessment @ 4/10 on VAS this am, and ' being off work definitely helps too.' Objective Objective Notes AROM: LEFT KNEE 4-0-118 TTP: LEFT KNEE MEDIAL JT LINE 3/4, PATELLAR TENDON 1-2/4, LATERAL JT LINE 2-3/4 MMT: LEFT HIP FLX 4-4+/5, L KNEE EXT 4+/5, L KNEE FLX 4-4+ /5, L HIP ABD,ADD,EXT 4/5 LEF 22 VS 18 ON I EVAL Assessment Progress Assessment Slower Than Expected Assessment Notes IMPROVED STRENGTH, TTP, AND LEF Patient goals met STG'S 11/10 LTG'S 08/11 Goals Not Met STG'S 08/10, LTG'S 12/11 Plan Plan Pt to continue w/skilled P.T. to make further improvements in ROM, strength, and TTP to allow for optimal function Frequency of Therapy 1-2X/WK Duration of therapy 2-4WKS Time and Billing Re-Eval Time 12 Re-Eval Billing Units 1 PHYSICIAN CERTIFICATION: I certify the specified therapy services for Milla Reis are required, authorized, and reviewed every 30 days.
== END 2023-05-18 10:00 | disposition home or self-care (01) ==
LOC: PT 09:00
PROVIDERS: PCP Nurse Practitioner Family; Visit Provider Orthopaedic Surgery
DX: M25.562 Pain in left knee (principal); Z96.652 Presence of left artificial knee joint
CPT/HCPCS: 97010; 97014; 97110; 97163; 97164; 97530; G0283

== ENCOUNTER 2023-07-03 08:20 | Outpatient (CLI) | payer BC, SELFPAY ==
--- NOTE | 2023-07-03 08:31 | ECG_ITS ---
APPROVED REPORT Exam: Resting ECG HR:60 bpm ECG Measurements Heart Rate 60 AXES ID 157 P 71 QRSd 84 QRS 75 QT 384 T 65 QTc 385 Conclusion SINUS RHYTHM LOW QRS VOLTAGE IN PRECORDIAL LEADS [QRS DEFLECTION < 1.0 mV IN CHEST LEADS] BORDERLINE ECG UNCONFIRMED REPORT Electronically signed by : Ramiro Alba MD 07/03/2023 16:37:07
[2023-07-03 08:38] LABS: Microscopic, Urine URINE MICROSCOPIC (MICROSCOPIC)
--- NOTE | 2023-07-03 08:56 | XR_ITS ---
FINAL REPORT TECHNIQUE: Two views CLINICAL HISTORY: pre op exam knee surgery...soa on exertion FINDINGS: Lungs and mediastinum show changes of old calcified granulomatous disease. No acute pulmonary density is evident. Mediastinum and heart are otherwise unremarkable. IMPRESSION: No acute findings. Evidence of old calcified granulomatous disease. Reviewed, Interpreted and Dictated by Jonathon Patten MD Transcribed by Yana Mendes Authenticated and [facility]
[2023-07-03 09:03] LABS: Basophils # 0.1 K/mm3 (0-0.2); Basophils % 1.6 % (0.1-2.0); Eosinophils # 0.2 K/mm3 (0.0-0.4); Eosinophils % 3.8 % (0.1-12.0); Hematocrit 41.9 % (37.0-47.0); Hemoglobin 13.7 g/dL (12.2-16.2); Lymphocytes % 35.4 % (10-50); Mean Corpuscular HGB Conc 32.7 g/dL (31.8-35.4); Mean Corpuscular Volume 82.7 fl (81-99); Mean Platelet Volume 7.9 fl (7.4-10.4); Monocytes # 0.3 K/mm3 (0.1-1.0); Monocytes % 5.1 % (1.7-9.3); Neutrophils # 3.1 K/mm3 (1.8-7.8); Neutrophils % 54.2 % (37.0-80.0); Platelet Count 247 K/mm3 (142-424); Red Blood Count 5.07 M/mm3 (4.20-5.40); Red Cell Distribution Width 14.7 % (11.5-17.5); White Blood Count 5.7 K/mm3 (4.8-10.8)
[2023-07-03 09:33] LABS: Alanine Aminotransferase 13 U/L (12-78); Albumin Level 3.9 g/dl (3.5-5.0); Albumin/Globulin Ratio 1.3 (1.1-1.8); Alkaline Phosphatase 111 U/L (38-126); Anion Gap 9.5 mEq/L (5-15); Aspartate Amino Transferase 22 U/L (14-36); Bilirubin,Total 0.4 mg/dl (0.2-1.3); Blood Urea Nitrogen 21 mg/dl (7-17); Calcium 9.1 mg/dl (8.4-10.2); Carbon Dioxide 28 mmol/L (22.0-30.0); Chloride 108 mmol/L (98-107); Estimated Glomerular Filt Rate 87 ml/min (>60); GFR (African American) 105 ML/MIN (>60); Globulin 2.9 g/dL (1.3-3.2); Glucose 86 mg/dl (74-100); Potassium 4.5 mmoL/L (3.5-5.1); Sodium 141 mmol/L (136-145); Total Protein,Serum 6.8 g/dl (6.3-8.2)
[2023-07-03 12:13] LABS: Appearance,Urine CLEAR (Clear); Bilirubin,Urine Negative (Negative); Blood, Urine Negative (Negative); Color,Urine YELLOW (Yellow); Glucose,Urine (UA) Negative (Negative); Ketones,Urine Negative (Negative); Leukocyte Esterase,Urine Negative (Negative); Nitrate,Urine Negative (Negative); PH,Urine 6.5 (5.0-8.5); Protein,Urine Negative (Negative); Specific Gravity, Urine 1.015 (1.005-1.030); Urobilinogen,Urine 0.2 EU/dl (0.2)
[2023-07-03 13:06] LABS: Squamous Epithelial Cell,Urine Occasional #/hpf (0-5)
[2023-07-03 13:07] LABS: Bacteria,Urine Trace /lpf
== END 2023-07-03 23:59 ==
LOC: RT 08:22
PROVIDERS: PCP Nurse Practitioner Family; Visit Provider Orthopaedic Surgery
DX: M17.12 Unilateral primary osteoarthritis, left knee (principal); Z01.818 Encounter for other preprocedural examination
CPT/HCPCS: 36415; 71046; 80053; 81001; 85025; 93005

== ENCOUNTER 2023-07-09 06:18 | Observation (INO) | payer BC, SELFPAY ==
[2023-07-05 14:04] VITALS: BMI 28.3
[2023-07-09] VITALS (17 sets, daily range): BP systolic 91–141; BP diastolic 46–68; PULSE 61–81; RESP 12–20; TEMP 36.3–36.7; O2SAT 92–100
[2023-07-09] MEDS: LACTATED RINGERS 1000ML 1,000 ML 25 ML IV (06:43)
--- NOTE | 2023-07-09 07:03 | P.PNANES_ITS ---
[facility] Disclaimer: The information contained in this section may have been updated after the patient was seen, as this information can be updated by other users. Medical History Arthritis Colonoscopy planned Depression History of COVID-19 Hypothyroid Normal colonoscopy Occipital neuralgia of right side Thyroid disease Surgical History H/O left knee surgery History of colonoscopy Family History Brother Cancer Mother CHF (congestive heart failure) Father Family history of emphysema Family/Other Diabetes Social History (Updated 07/09/23 @ 06:33 by Maisha Carlisle RN) Smoking Status: Never smoker second hand exposure: No alcohol intake: never substance use type: denies use current occupational status: employed Travel in the last 8 weeks: None household members: spouse housing: house marital status: number of children: 0 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 current occupational exposures/hazards: No caffeine: Yes [facility] Anesthesia Checklist Patient Identification Patient Identification: Arm Band and Verbal (Name & ) Structural Data Admitted From: Home Planned Operative Procedure/s: LEFT TKA Consent for Planned Operative Procedure(s) Verified: Yes Verified Documents: Surgical Consent and History and Physical NPO Status Verified Time NPO: 18:00 Chart Verification Results Verified: CBC, BMP, ECG and Chest Xray Additional verifications Patient : No Anesthesia Reactions: No Hx Blood Transfusions: No Blood Transfusion Reaction: No Cardiovascular Assessment Heart Sounds: S1 & S2 Pulse Rhythm: Irregular Peripheral Edema: No Airway Assessment Mallampati Score:: Class II C-Spine Mobility Assessed: Yes (FROM) TMJ Mobility Assessed: Yes Dentition: Poor Dentition (Nothing loose per pt.) Neurological Assessment Level of Consciousness: Awake, Alert, Appropriate and Follows Commands Hx Seizures: No Numbness or tingling in extremities: No Anesthesia Plan Anesthesia Risk discussed: Yes Anesthesia Plan: Verified ASA Class: II Anesthesia Type: Spinal (w/Block for post-op pain control)
[2023-07-09] MEDS: CEFAZOLIN SODIUM 1 GM in 0.9 % SODIUM CHLORIDE 50 ML IV ×3 (07:45→21:42)
[2023-07-09] MEDS: SODIUM CHLORIDE 0.9% IV ×2 (07:45→11:00)
[2023-07-09] MEDS: TRANEXAMIC ACID IV ×2 (07:45→11:00)
--- NOTE | 2023-07-09 07:50 | HMH.PHAINT1 ---
Pharmacy Intervention Comments: MEDICATION RECONCILIATION COMPLETED ON PATIENT USING EXTERNAL FILL HISTORY FROM PHARMACY. -SARTHAK TIMMONS, KRISTIND
--- NOTE | 2023-07-09 11:14 | EXP.ANES.I ---
[facility] Anesthesia Record Part I Anesthesia Record I Intake, IV Amount: 2,300 Hydration: Adequate Estimated blood loss (mL): 0 Urine output (mL): 0 Blood Pressure: 102/64 SaO2: 92 Pulse Rate: 81 Airway Patency: Patent Respiratory Rate: 12 Temperature: 97.3 F Patient is:: Awake and Stable Stable to PACU at:: 11:10
--- NOTE | 2023-07-09 11:32 | XR_ITS ---
FINAL REPORT CLINICAL HISTORY: s/p left tka COMPARISON: None FINDINGS: Two views of the left knee were obtained. The patient is postoperative from a total knee arthroplasty, with surgical clips in the anterior soft tissues and air within the soft tissues. IMPRESSION: Postop changes from left knee total arthroplasty Reviewed, Interpreted and Dictated by Yfn Ryan III, MD Transcribed by Kita Georges Authenticated and [facility]
--- NOTE | 2023-07-09 11:33 | EXP.OP.NOTE ---
Date of procedure: 07/09/23 Pre-op Diagnosis:: Left end-stage osteoarthritis knee Post-op Diagnosis:: Same Procedure performed:: Left total knee arthroplasty Surgeon:: Faisal Grajeda DO SAMPLE CASE PORTER:: Emanuel Martinez Anesthesia: regional and spinal Estimated blood loss (mL): 50 Clinical Note:: Implants: Blair persona size 9 femur 13 mm MC poly size E tibia with 29 mm patella Operative findings:: Severe end-stage osteoarthritis Operative note:: Patient was identified preoperatively. Left knee marked with yes my initials. Taken the operating room given spinal anesthesia and then placed upon the operating bed. Was given sedation and the left knee was then prepped and draped in normal sterile fashion. Once prepped and draped final operative timeout performed to identify proper patient procedure and extremity. Everyone involved the case agreed. There are no counter indications to beginning. Did receive preoperative antibiotics. Marking pen was used to mihir plan midline incision of the knee Esmarch was used to exsanguinate extremity pneumatic tourniquet inflated 300 mmHg. The knee was flexed. Skin knife is used to incise through skin. Flaps were then made and a medial parapatellar approach was utilized and the patella was everted and the knee was flexed. The osteophytes were removed from the anterior aspect of the tibia extramedullary tibial cutting guide was utilized and pinned into place and slope was added. Tibia was then cut with a flat cut in line with extramedullary tibial guide. The tibial cut was then removed and remnants medial lateral meniscus removed. Attention was brought to the femur the intramedullary femoral guide was placed 2 additional millimeters of cut was performed off the distal femur for proper cut the sizing guide was then placed and sized to a size 9. This was 4-in-1 guide was then pinned into place 3 degrees of external rotation holes drilled for the 4-in-1 cutting guide. The 4-in-1 cutting guide was then used to cut the anterior and posterior cuts posterior chamfer and anterior chamfer cuts. These were then removed. The trial femur was impacted into place. A 9 was a good fit anterior to posterior and line Medial and lateral so the more narrow implant was selected to avoid overhang. Trials were the starting from size 10 and then to a size 13 the medial congruent poly 13 was the proper balance in flexion and extension. Patella was everted then cut with a patellar guide 9 mm of patella was cut and the trial size 29 lug holes were drilled. Once that was complete the trial's were placed and knee was taken through range of motion found to be stable in flexion and extension. On the contralateral side preoperatively there was a very slight hyperextension of the knee is her normal function. Final implants were opened on the back table cement was mixed and the final implants were cemented into place with a trial poly once taken through range of motion and the cement had hardened all excess cement was removed the trial poly was then placed and a size 13 MC trial was appropriate. Therefore the final 13 MC poly was opened and impacted. Knee was taken through range of motion found to be very stable leg was brought in extension tourniquet was deflated hemostasis obtained. Copious irrigation wound performed electrocautery used for hemostasis. Copious irrigation repeated capsule closed with a running #1 strata fix suture deep layers with 0 Vicryl subcutaneous with 2-0 Vicryl surgical clips in the skin for closure sterile dressing placed patient waken anesthesia was given an abductor canal block prior to going to recovery taken recovery stable condition Condition: stable Disposition: PACU Complications:: None apparent
--- NOTE | 2023-07-09 13:52 | HMH.PTEV ---
Physical Therapy Evaluation Rehab PT IP Evaluation Start: 07/09/23 11:28 Freq: ONCE Status: Active Protocol: Document 07/09/23 13:40 KJ (Rec: 07/09/23 13:51 KJ [id number]) Subjective/History History History Pt presents s/p L TKA. Subjective Subjective Per pt report PLOF: ambulating IND without AD. Lives with in a single story home with one threshold to enter. Pt IND with mobility prior to surgery. able to help as needed. New diagnosis of cancer in past 12 No months? Rehab PT IP Eval Objective Appearance Patient Behavior Appropriate,Cooperative Patient Orientation Person,Place,Situation Speech Pattern Clear Ambulation Patient Able to Ambulate No Transfers Bed Transfer Ability Maximum x 1 (75% assist) Rehab PT IP prob,goals,plan Problems Date of Evaluation: 07/09/23 PT IP Problems Bed Mobility,Transfers,Gait, Balance,Safety Rehab Potential Rehab Potential Good Equipment Needs Assistive Devices Rolling / Wheeled Walker Plan PT Intervention Plan Bed Mobility,Transfers,Gait, Balance,Safety,Therapeutic Exercise Other Intervention Plan 1-2 times PT Plan Frequency Daily Duration LOS Discharge Goals Bed Transfer Ability Contact Guard/Hand Hold Sit to Stand Chair Transfer Ability Minimal x 1 (25% assist) Discharge Plan PT Discharge Plan Pt's mobility is currently limited by post-surgical state /BLE numbness. Pt safe to d/c home (pending improved mobility with spinal block wearing off) with care provided by . Eval Complexity Eval Charge Codes 41336 - Moderate Complexity PHYSICIAN CERTIFICATION: I certify the specified therapy services for Milla Reis are required, authorized, and reviewed every 30 days.
--- NOTE | 2023-07-09 14:38 | SW/DCPLANNER ---
The plan for this patient is to return to [facility] outpatient rehab on 07/12/23 at 10AM.
--- NOTE | 2023-07-09 18:04 | PC.NURSE ---
A&OX4. TOLERATING RA WELL. PT HAS HAD NO C/O SINCE ARRIVAL TO FLOOR. PT IS STILL NUMB TO BLE FROM SPINAL. MD RIBEIRO AWARE. PT HAD THE URGE TO URINATE, BUT WAS UNABLE TO USE BEDPAN D/T SPINAL. GOT THE ORDER PER [facility] TO IN AND OUT CATH, GOT 950ML OF CLEAR LIGHT URINE OUT. PT TOLERATED WELL AND STATES MUCH RELIEF. DRESSING IN PLACE TO LLE. POLAR PACK IN PLACE. INCENTIVE SPIROMETER AT BEDSIDE, PT TAUGHT ON USE, UNDERSTANDS TEACHING. VSS.
[2023-07-09] MEDS: HYDROCODONE/APAP 5/325 MG TABLET 2 TAB PO ×2 (18:15→22:28)
--- NOTE | 2023-07-09 19:02 | PC.NURSE ---
PT UP TO BEDSIDE COMMODE AT THIS TIME, X2 ASSIST BUT TOLERATED VERY WELL.
[2023-07-09] MEDS: KETOROLAC 30MG/ML VIAL 15 MG IV (20:19)
[2023-07-09] MEDS: ASPIRIN 325MG TABLET 325 MG PO (21:42)
[2023-07-09] MEDS: ZOLPIDEM TARTRATE 5 MG TABLET PO (23:54)
[2023-07-10] VITALS: BP 122/70; PULSE 83; RESP 20; TEMP 36.8; O2SAT 93
[2023-07-10 04:00] VITALS: BP 124/67; PULSE 85; RESP 20; TEMP 36.8; O2SAT 92; BMI 31.6
[2023-07-10] MEDS: HYDROCODONE/APAP 5/325 MG TABLET 2 TAB PO ×2 (05:39→09:43)
[2023-07-10 07:08] LABS: Basophils % 0.4 % (0.1-2.0); Eosinophils # 0.1 K/mm3 (0.0-0.4); Eosinophils % 0.4 % (0.1-12.0); Hematocrit 38.3 % (37.0-47.0); Hemoglobin 12.5 g/dL (12.2-16.2); Lymphocytes # 1.5 K/mm3 (0.7-4.5); Lymphocytes % 14.6 % (10-50); Mean Corpuscular HGB Conc 32.6 g/dL (31.8-35.4); Mean Corpuscular Hemoglobin 27.5 pg (27.0-31.2); Mean Corpuscular Volume 84.2 fl (81-99); Mean Platelet Volume 7.9 fl (7.4-10.4); Monocytes # 0.6 K/mm3 (0.1-1.0); Monocytes % 5.7 % (1.7-9.3); Neutrophils # 8.1 K/mm3 (1.8-7.8); Neutrophils % 78.9 % (37.0-80.0); Platelet Count 234 K/mm3 (142-424); Red Blood Count 4.54 M/mm3 (4.20-5.40); Red Cell Distribution Width 14.6 % (11.5-17.5); White Blood Count 10.3 K/mm3 (4.8-10.8)
[2023-07-10 07:17] LABS: Chloride 104 mmol/L (98-107); Sodium 135 mmol/L (136-145)
[2023-07-10 07:20] LABS: Blood Urea Nitrogen 11 mg/dl (7-17); Calcium 8.6 mg/dl (8.4-10.2); Carbon Dioxide 27 mmol/L (22.0-30.0); Creatinine Clearance Estimated 143 mL/min (50-200); Estimated Glomerular Filt Rate 103 ml/min (>60); GFR (African American) 125 ML/MIN (>60); Glucose 121 mg/dl (74-100)
[2023-07-10 08:00] VITALS: BP 111/70; PULSE 84; RESP 16; TEMP 36.8; O2SAT 93
[2023-07-10] MEDS: KETOROLAC 30MG/ML VIAL 15 MG IV (08:52)
[2023-07-10] MEDS: ASPIRIN 325MG TABLET 325 MG PO (08:53)
[2023-07-10 11:11] VITALS: BP 106/61; PULSE 81; RESP 17; TEMP 36.8; O2SAT 94
--- NOTE | 2023-07-11 11:18 | CARE MANAGER ---
Contacted patient related to hospital discharge. Patient is aware of follow up appointment and picked up her new medications. She denies questions or concerns. LY James
[2023-07-12 08:48] VITALS: BP 106/58; PULSE 61; RESP 20; TEMP 36.3; O2SAT 94
--- NOTE | 2023-07-12 08:48 | P.PNANES_ITS ---
[facility] Anesthesia Record Part II Anesthesia Record Part II Discharge Time: 11:46 Destination: Second Floor PACU nurse assessment reviewed?: Yes Patient Condition:: Good Anesthesia Complications:: None Swallowing reflex intact?: Yes Airway Patency: Patent Cyanosis?: No Blood Pressure: 106/58 SaO2: 94 Respiratory Rate: 20 Pulse Rate: 61 Temperature: 97.3 F Mental Status: Alert & Oriented Pain level:: 0 Nausea and/or vomitting:: None Intake, IV Amount: 0 Hydration: Adequate
== END 2023-07-10 13:34 | disposition home or self-care (01) ==
LOC: 2ND 06:18
PROVIDERS: Admitting Provider Orthopaedic Surgery; PCP Nurse Practitioner Family; Visit Provider Orthopaedic Surgery
PROC: (CPT 27447; principal; 2023-07-09 07:30)
DX: M17.12 Unilateral primary osteoarthritis, left knee (principal); Z79.899 Other long term (current) drug therapy; E03.9 Hypothyroidism, unspecified
CPT/HCPCS: 27447; 36415; 73560; 80048; 85025; 96374; 97162; 97530; C1713; C1776; G0378; J2704

== ENCOUNTER 2023-07-24 08:57 | Outpatient (CLI) | payer BC, SELFPAY ==
--- NOTE | 2023-07-24 09:02 | XR_ITS ---
FINAL REPORT CLINICAL HISTORY: s/p total knee COMPARISON: None FINDINGS: AP, lateral and oblique views of the left knee were obtained. There is no prior exam for comparison. The patient has undergone total knee replacement, and there are postoperative bertin noted anteriorly. There is no acute osseous abnormality of the left knee. IMPRESSION: Postoperative changes with bertin anteriorly from a left total knee replacement. Reviewed, Interpreted and Dictated by Paula Dougherty MD Transcribed by Kita Georges Authenticated and [facility]
== END 2023-07-24 23:59 ==
LOC: RAD 08:59
PROVIDERS: PCP Nurse Practitioner Family; Visit Provider Orthopaedic Surgery
DX: M17.12 Unilateral primary osteoarthritis, left knee (principal)
CPT/HCPCS: 73562

== ENCOUNTER 2023-08-23 10:42 | Outpatient (CLI) | payer BC, SELFPAY ==
--- NOTE | 2023-08-23 10:45 | XR_ITS ---
FINAL REPORT CLINICAL HISTORY: S/P Lt TKA COMPARISON: 07/24/2023 FINDINGS: Three views of the left knee reveal no evidence of fracture or dislocation. The patient has undergone a total knee arthroplasty, and the hardware appears intact. The bony alignment is normal. There is a moderate size joint effusion present. No localized soft tissue abnormality is seen. IMPRESSION: Total knee arthroplasty once again identified, stable since the prior exam. Moderate sized joint effusion. Reviewed, Interpreted and Dictated by Yfn Ryan III, MD Transcribed by Kita Georges Authenticated and [facility]
== END 2023-08-23 23:59 ==
LOC: RAD 10:42
PROVIDERS: PCP Nurse Practitioner Family; Visit Provider Orthopaedic Surgery
DX: M17.12 Unilateral primary osteoarthritis, left knee (principal); Z96.652 Presence of left artificial knee joint
CPT/HCPCS: 73560

== ENCOUNTER 2023-09-14 07:32 | Day surgery (SDC) | payer BC, SELFPAY ==
[2023-09-13 09:28] VITALS: BMI 28.3
[2023-09-14] VITALS (11 sets, daily range): BP systolic 121–161; BP diastolic 66–98; PULSE 58–98; RESP 18–25; TEMP 36.4–36.7; O2SAT 90–99
[2023-09-14] MEDS: LACTATED RINGERS 1000ML 1,000 ML 25 ML IV (08:26)
--- NOTE | 2023-09-14 10:16 | EXP.OP.NOTE ---
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 Left knee marked with yes my initials. Transported operative suite. General anesthesia was administered airway secured. Once this was performed final operative timeout was performed to identify proper patient procedure and extremity. Everyone involved the case agreed. No counter indications to beginning. Once patient was asleep I gently manipulated the left knee with pressure on the tibia and femur to have a small improvements in range of motion. There was palpable and audible breaking of the scar tissue that was present. I went very slow with easy constant pressure and was able to obtain 120-125 degrees of flexion. Patient was then awakened from anesthesia and taken recovery stable condition. Condition: stable Disposition: PACU Complications:: None apparent
--- NOTE | 2023-09-14 10:19 | P.PNANES_ITS ---
[facility] Anesthesia Record Part I Anesthesia Record I Intake, IV Amount: 300 Hydration: Adequate Estimated blood loss (mL): 0 Urine output (mL): 0 Blood Products used (#): none Blood Pressure: 121/75 SaO2: 93 Pulse Rate: 93 Airway Patency: Patent Respiratory Rate: 20 Temperature: 98.1 F Patient is:: Drowsy, Oral/Nasal airway (9.0 oral airway) and Stable Stable to PACU at:: 10:13
[2023-09-14] MEDS: MORPHINE 2MG/ML SYRINGE 1 MG IV ×2 (10:23→10:29)
[2023-09-14] MEDS: HYDROMORPHONE 2MG/ML SYRINGE 0.5 MG IV (11:09)
--- NOTE | 2023-09-14 11:26 | P.PNANES_ITS ---
[facility] Disclaimer: The information contained in this section may have been updated after the patient was seen, as this information can be updated by other users. Medical History Thyroid disease Depression Colonoscopy planned Normal colonoscopy History of COVID-19 Arthritis Hypothyroid Occipital neuralgia of right side Surgical History History of colonoscopy H/O left knee surgery Family History Brother Cancer Mother CHF (congestive heart failure) Father Family history of emphysema Family/Other Diabetes Social History Smoking Status: Never smoker second hand exposure: No alcohol intake: never substance use type: denies use current occupational status: employed Travel in the last 8 weeks: None household members: spouse housing: house marital status: number of children: 0 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 Anesthesia Checklist Patient Identification Patient Identification: Arm Band, Family and Verbal (Name & ) Structural Data Admitted From: Home Planned Operative Procedure/s: Manipulation LT knee Consent for Planned Operative Procedure(s) Verified: Yes Verified Documents: Surgical Consent and History and Physical NPO Status Verified Time NPO: 21:00 Additional verifications Patient : No Anesthesia Reactions: No Hx Blood Transfusions: No Blood Transfusion Reaction: No Cardiovascular Assessment Heart Sounds: S1 & S2 Pulse Rhythm: Irregular Peripheral Edema: Yes (LT knee) Airway Assessment Mallampati Score:: Class II C-Spine Mobility Assessed: Yes (FROM) TMJ Mobility Assessed: Yes Dentition: Poor Dentition (Nothing loose per pt.) Neurological Assessment Level of Consciousness: Awake, Alert, Appropriate and Follows Commands Hx Seizures: No Numbness or tingling in extremities: No Anesthesia Plan Anesthesia Risk discussed: Yes Anesthesia Plan: Verified ASA Class: II Anesthesia Type: General
--- NOTE | 2023-09-14 12:35 | P.PNANES_ITS ---
[facility] Anesthesia Record Part II Anesthesia Record Part II Discharge Time: 10:48 Destination: Surgical Day Care (OP Surgery) PACU nurse assessment reviewed?: Yes Patient Condition:: Good Anesthesia Complications:: None Swallowing reflex intact?: Yes Airway Patency: Patent Cyanosis?: No Blood Pressure: 131/78 SaO2: 95 Respiratory Rate: 22 Pulse Rate: 92 Temperature: 98.1 F Mental Status: Alert & Oriented Pain level:: 6 (Adductor canal block performed by SHONA Mukherjee for pot-op pain control) Nausea and/or vomitting:: None Intake, IV Amount: 300 Hydration: Adequate
== END 2023-09-14 11:40 | disposition home or self-care (01) ==
PROVIDERS: PCP Nurse Practitioner Family; Visit Provider Orthopaedic Surgery
PROC: (CPT 27570; principal; 2023-09-14 09:15)
DX: M24.662 Ankylosis, left knee (principal); R26.2 Difficulty in walking, not elsewhere classified; Z86.16 Personal history of COVID-19; Z79.899 Other long term (current) drug therapy
CPT/HCPCS: 27570; C9290; J2405

== ENCOUNTER 2023-10-23 07:29 | Outpatient (CLI) | payer BC, SELFPAY ==
--- NOTE | 2023-10-23 07:32 | XR_ITS ---
FINAL REPORT CLINICAL HISTORY: lt knee pain COMPARISON: 08/23/2023 FINDINGS: LEFT KNEE 3 views of the left knee were obtained. Total joint prosthesis is present. Hardware appears intact. There is no acute fracture or dislocation. Visualized joint spaces are normally aligned. There is a small joint effusion. Soft tissues are unremarkable. IMPRESSION: Small joint effusion without acute process. Reviewed, Interpreted and Dictated by Martinez Sadler MD Transcribed by Sarita Naik Authenticated and [facility]
== END 2023-10-23 23:59 | disposition home or self-care (01) ==
LOC: RAD 07:30
PROVIDERS: PCP Nurse Practitioner Family; Visit Provider Orthopaedic Surgery
DX: M25.562 Pain in left knee (principal)
CPT/HCPCS: 73562

== ENCOUNTER 2023-11-09 16:30 | Outpatient (RCR) | payer BC, SELFPAY ==
--- NOTE | 2023-08-28 15:09 | HMH.RHREAS ---
Rehab Reassessment Rehab OP Re-assessment Start: 07/15/23 19:15 Freq: Status: Active Protocol: Document 08/28/23 14:04 PHORTRINITY (Rec: 08/28/23 15:09 PHORNE [id number]) E-signed By Manny Lay PT Lower Extremity Functional Index Activities Today, do you or would you have any difficulty at all with: a.Any of your usual work, housework or Moderate difficulty school activities b. Your usual hobbies, recreational or Quite a bit of difficulty sporting activities c. Getting into or out of the bath Moderate difficulty d. Walking between rooms Moderate difficulty e. Putting on your shoes or socks Moderate difficulty f. Squatting Extreme difficulty or unable to perform activity g. Lifting an object, like a bag of Moderate difficulty groceries from the floor h. Performing light activities around Moderate difficulty your home i. Performing heavy activities around Quite a bit of difficulty your home j. Getting into or out of a car Moderate difficulty k. Walking 2 blocks Quite a bit of difficulty l. Walking a mile Quite a bit of difficulty m. Going up or down 10 stairs (about 1 Quite a bit of difficulty flight of stairs) n. Standing for 1 hour Moderate difficulty o. Sitting for 1 hour Moderate difficulty p. Running on even ground Moderate difficulty q. Running on uneven ground Extreme difficulty or unable to perform activity r. Making sharp turns while running fast Extreme difficulty or unable to perform activity s. Hopping Extreme difficulty or unable to perform activity t. Rolling over in bed Quite a bit of difficulty LEFI Score Lower Extremity Functional Index Score 26 Rehab Re-assessment Subjective Subjective Patient reports that she has improved 40%. She reports that the knee just will not bend. She reports that she continues to have difficulty with household activities. Some difficulty getting into and out of shower but it is getting easier. She still is not driving. She is unable to enjoy a social life because of her knee. Objective Objective Notes ROM: L Knee extension: -4 actively, -2 passively L knee flexion: 56 actively, 64 passively Strength: L knee extension: 4+/5 (within available ROM) L knee flexion: 4-/5 (within available ROM) L hip abduction: 4-/5 L hip adduction: 4-/5 L hip flexion: 4-/5 Palpation: TTP 2/4 to yuliya-patellar region Gait: limited knee flexion during swing. Hip hiking in order to clear foot to advance LLE during swing phase. Decreased WB on LLE and decreased step length. Assessment Progress Assessment Slower Than Expected Assessment Notes Patient continues to demonstrate signficant decrements into knee flexion. She is lacking both active and passive ROM, limited mostly by pain. The patient has shown some slight improvements in strength at this time. Skilled PT remains indicated for this patient. Patient goals met ST Goals Not Met ST LT-9 Plan Plan Continue as per protocol. Increased emphasis on gaining mobility. Frequency of Therapy 2-3/week Duration of therapy 8 weeks Time and Billing Re-Eval Time 12 Re-Eval Billing Units 1 PHYSICIAN CERTIFICATION: I certify the specified therapy services for Milla Reis are required, authorized, and reviewed every 30 days.
--- NOTE | 2023-09-24 09:18 | HMH.RHREAS ---
Rehab Reassessment Rehab OP Re-assessment Start: 07/15/23 19:15 Freq: Status: Active Protocol: Document 09/24/23 09:05 COREY (Rec: 09/24/23 09:18 PHORTRINITY [id number]) E-signed By Manny Lay PT Lower Extremity Functional Index Activities Today, do you or would you have any difficulty at all with: a.Any of your usual work, housework or Moderate difficulty school activities b. Your usual hobbies, recreational or Quite a bit of difficulty sporting activities c. Getting into or out of the bath A little bit of difficulty d. Walking between rooms Moderate difficulty e. Putting on your shoes or socks A little bit of difficulty f. Squatting Extreme difficulty or unable to perform activity g. Lifting an object, like a bag of A little bit of difficulty groceries from the floor h. Performing light activities around A little bit of difficulty your home i. Performing heavy activities around Quite a bit of difficulty your home j. Getting into or out of a car A little bit of difficulty k. Walking 2 blocks Quite a bit of difficulty l. Walking a mile Quite a bit of difficulty m. Going up or down 10 stairs (about 1 Quite a bit of difficulty flight of stairs) n. Standing for 1 hour Moderate difficulty o. Sitting for 1 hour Moderate difficulty p. Running on even ground Quite a bit of difficulty q. Running on uneven ground Quite a bit of difficulty r. Making sharp turns while running fast Quite a bit of difficulty s. Hopping Quite a bit of difficulty t. Rolling over in bed A little bit of difficulty LEFI Score Lower Extremity Functional Index Score 35 Rehab Re-assessment Subjective Subjective Patient reports that she has improved approximately 70% since beginning physical therapy. I just don't do well with pain. I never have. She reports that she has an 8/10 pain when someone bends her knee. At best, the pain reaches 2/10 and at worst it is 9/10. The patient reports that she continues to have difficulty with her motion, but she reports that household activities and walking has gotten easier. However, she remains somewhat limited. Objective Objective Notes ROM: L Knee extension: -5 actively, -2 passively L knee flexion: 86 actively, 94 passively Strength: L knee extension: 4+/5 (within available ROM) L knee flexion: 4/5 (within available ROM) L hip abduction: 4/5 L hip adduction: 4/5 L hip flexion: 4-/5 Palpation: TTP 06/07 to yuliya-patellar region Gait: limited knee flexion during swing. Hip hiking in order to clear foot to advance LLE during swing phase. Decreased WB on LLE and decreased step length. [ End ] Assessment Progress Assessment Slower Than Expected Assessment Notes Patient has demonstrated improvements in both ROM and strength, however, she continues to present below the normal limits for both. Her gait pattern is slightly improved at this time. She continues to be limited by pain. Skilled PT continues to be indicated for this patient. Patient goals met ST LT,[address] LT,3,4,5,7,8,9 Plan Plan Continue as per initial POC Frequency of Therapy 2-3/week Duration of therapy 4-6 weeks Time and Billing Re-Eval Time 12 Re-Eval Billing Units 1 PHYSICIAN CERTIFICATION: I certify the specified therapy services for Milla Reis are required, authorized, and reviewed every 30 days.
--- NOTE | 2023-10-23 08:52 | HMH.RHREAS ---
Rehab Reassessment Rehab OP Re-assessment Start: 07/15/23 19:15 Freq: Status: Active Protocol: Document 10/23/23 08:47 PHORTRINITY (Rec: 10/23/23 08:51 PHORNE Laptop) E-signed By Manny Lay, PT Lower Extremity Functional Index Activities Today, do you or would you have any difficulty at all with: a.Any of your usual work, housework or A little bit of difficulty school activities b. Your usual hobbies, recreational or Moderate difficulty sporting activities c. Getting into or out of the bath A little bit of difficulty d. Walking between rooms Moderate difficulty e. Putting on your shoes or socks A little bit of difficulty f. Squatting Quite a bit of difficulty g. Lifting an object, like a bag of A little bit of difficulty groceries from the floor h. Performing light activities around A little bit of difficulty your home i. Performing heavy activities around Quite a bit of difficulty your home j. Getting into or out of a car A little bit of difficulty k. Walking 2 blocks Moderate difficulty l. Walking a mile Quite a bit of difficulty m. Going up or down 10 stairs (about 1 Quite a bit of difficulty flight of stairs) n. Standing for 1 hour Moderate difficulty o. Sitting for 1 hour Moderate difficulty p. Running on even ground Quite a bit of difficulty q. Running on uneven ground Quite a bit of difficulty r. Making sharp turns while running fast Quite a bit of difficulty s. Hopping Quite a bit of difficulty t. Rolling over in bed A little bit of difficulty LEFI Score Lower Extremity Functional Index Score 39 Rehab Re-assessment Subjective Subjective Pt reports significantly less pain overall and with activity . She is much happier with her overall mobility since SHAYY was performed. Continues to have mild difficulty with walking on flat ground. Objective Objective Notes ROM: L Knee extension (in deg): -1 actively, 0 passively L knee flexion (in deg): 101 actively, 108 passively Strength: L knee extension: 4+/5 (within available ROM) L knee flexion: 4/5 (within available ROM) L hip abduction: 4/5 L hip adduction: 4/5 L hip flexion: 4/5 Palpation: TTP / to yuliya-patellar region Gait: limited knee flexion during swing. Assessment Progress Assessment Progressing as Expected Assessment Notes Patient has demonstrated improvements in both ROM and strength, however, she continues to present below the normal limits for both. Her gait pattern is slightly improved at this time. She continues to be limited by pain. Skilled PT continues to be indicated for this patient. Patient goals met ST LT,[address] LT,3,4,5,7,8,9 Plan Plan Continue as per initial POC Frequency of Therapy 2-3/week Duration of therapy 4-6 weeks Time and Billing Re-Eval Time 10 Re-Eval Billing Units 1 PHYSICIAN CERTIFICATION: I certify the specified therapy services for Milla Ries are required, authorized, and reviewed every 30 days.
== END 2023-11-09 16:35 | disposition home or self-care (01) ==
LOC: PT 16:30
PROVIDERS: PCP Nurse Practitioner Family; Visit Provider Orthopaedic Surgery
DX: M25.562 Pain in left knee (principal); Z96.652 Presence of left artificial knee joint
CPT/HCPCS: 95992; 97010; 97014; 97016; 97110; 97112; 97140; 97163; 97164; 97530; G0283

== ENCOUNTER 2023-12-25 14:08 | Outpatient (CLI) | payer BC, SELFPAY ==
--- NOTE | 2023-12-25 14:11 | MM_ITS ---
PROCEDURE INFORMATION: Exam: MG Bilateral Screening 3D Mammography Exam date and time: 12/25/2023 2:06 PM Age: 58 years old Clinical indication: Screening mammogram TECHNIQUE: Imaging protocol: Bilateral Screening tomosynthesis and 2D mammography including computer-aided detection (CAD) when performed. COMPARISON: 1. MG MM DIG SCREENING MAMM BI W/CAD 08/03/2022 8:03 AM 2. MG DMSB DIG MAMM-SCREEN RA W/CAD 08/17/2016 3:52 PM 3. MG DMDXUAVR DIG MAMM-DX UNI ADD VIEWS-RT 07/02/2014 3:10 PM 4. MG DMSB DIG MAMM-SCREEN RA 06/22/2014 9:38 AM FINDINGS: MAMMOGRAPHY: Breast composition: There are scattered areas of fibroglandular density. Mass: None. Architectural distortion: No new or suspicious architectural distortion. Calcifications: No new or suspicious calcifications are present Asymmetric density: No new or suspicious asymmetric density is present Skin thickening: None. Axillary adenopathy: None. IMPRESSION: No mammographic evidence of malignancy. Recommend annual screening mammography unless otherwise clinically indicated. ASSESSMENT: BI-RADS category 1: Negative.
== END 2023-12-25 23:59 | disposition home or self-care (01) ==
LOC: RAD 14:08
PROVIDERS: PCP Nurse Practitioner Family; Visit Provider Nurse Practitioner Family
DX: Z12.31 Encounter for screening mammogram for malignant neoplasm of breast (principal)
CPT/HCPCS: 77063; 77067

== ENCOUNTER 2024-04-08 09:34 | Outpatient (CLI) | payer BC, SELFPAY ==
[2024-04-08 10:05] LABS: Basophils % 0.5 % (0.1-2.0); Eosinophils % 0.1 % (0.1-12.0); Hematocrit 40.4 % (37.0-47.0); Hemoglobin 13.3 g/dL (12.2-16.2); Lymphocytes # 0.8 K/mm3 (0.7-4.5); Lymphocytes % 9.6 % (10-50); Mean Corpuscular HGB Conc 32.9 g/dL (31.8-35.4); Mean Corpuscular Hemoglobin 26.5 pg (27.0-31.2); Mean Corpuscular Volume 80.6 fl (81-99); Mean Platelet Volume 7.4 fl (7.4-10.4); Monocytes # 0.4 K/mm3 (0.1-1.0); Monocytes % 4.2 % (1.7-9.3); Neutrophils # 7.1 K/mm3 (1.8-7.8); Neutrophils % 85.7 % (37.0-80.0); Platelet Count 226 K/mm3 (142-424); Red Blood Count 5.01 M/mm3 (4.20-5.40); Red Cell Distribution Width 14.4 % (11.5-17.5); White Blood Count 8.3 K/mm3 (4.8-10.8)
[2024-04-08 10:08] LABS: MANUAL DIFFERENTIAL MANUAL DIFFERENTIAL (MANUAL DIFF)
[2024-04-08 10:28] VITALS: BP 121/58; PULSE 86; RESP 18; O2SAT 96
[2024-04-08] MEDS: 0.9 % SODIUM CHLORIDE 1000ML 1,000 ML 999 ML IV (10:28)
[2024-04-08] MEDS: ONDANSETRON 4MG/2ML VIAL 4 MG (10:28)
[2024-04-08 10:40] LABS: Alanine Aminotransferase 24 U/L (12-78); Albumin Level 3.7 g/dl (3.5-5.0); Albumin/Globulin Ratio 1.1 (1.1-1.8); Alkaline Phosphatase 175 U/L (38-126); Aspartate Amino Transferase 44 U/L (14-36); Blood Urea Nitrogen 17 mg/dl (7-17); Calcium 8.7 mg/dl (8.4-10.2); Carbon Dioxide 26 mmol/L (22.0-30.0); Chloride 102 mmol/L (98-107); Estimated Glomerular Filt Rate 74 ml/min (>60); GFR (African American) 89 ML/MIN (>60); Globulin 3.3 g/dL (1.3-3.2); Glucose 99 mg/dl (74-100); Sodium 136 mmol/L (136-145)
[2024-04-08 10:59] LABS: Lymphocytes % 17 % (10-50); Monocytes % 2 % (2-9); Neutrophils % 81 % (42-76); Platelet Estimate Normal; RBC Morphology Normal; Total Cells Counted 100
[2024-04-08 11:35] VITALS: BP 99/47; PULSE 84; RESP 18; O2SAT 96
== END 2024-04-08 11:35 | disposition home or self-care (01) ==
LOC: LAB 09:35 → INF 09:50
PROVIDERS: PCP Nurse Practitioner Family; Visit Provider Nurse Practitioner Family
DX: K52.9 Noninfective gastroenteritis and colitis, unspecified (principal); E86.0 Dehydration
CPT/HCPCS: 36415; 80053; 85007; 85025; 96360; 96375; J2405; J7030

== ENCOUNTER 2024-12-01 09:29 | Outpatient (CLI) | payer BC, SELFPAY ==
--- OUTSIDE RECORDS SUMMARY | 2024-12-01 09:32 | XMS_ITS | Data Portability ---
Author Organization [facility] Address [address] [place] [address] Care Team Providers Care Battery Assembler Name Role Phone RENNY LUKE Refueler JESSIE NARANJO Refueler [phone] Assessment Encounter Date Assessment Date Assessment LastModified by Organization Details LastModified Time 07/14/2022 07/14/2022 HPI: This is a 57-year-old female with left knee pain She was referred by Dr. Grajeda, has left knee pain related to an injury at work. She fell and hit her head and her left knee, since then, has sharp, mechanical pain. She has undergone serial injections at the medical center with steroid in the joint, minimal benefit. Referred to our clinic for evaluation for left genicular nerve block. Denies any radicular pain or infectious symptoms. She is accompanied by her nurse pillowcase folder today. Anticoagulants: None PMHx: Hypothyroidism INJ Hx: Intra-articular steroid injections at the medical center PSHx/Surgical Evaluation: Referred by Dr. Grajeda for genicular nerve block IMAGING: MRI of knee demonstrated arthritis without signs of fracture The above image findings were discussed with the patient. Current medications include NSAIDs. The patient feels that they receive inadequate analgesia and activity improvement with the medication. The patient denies side effects from the medications. UDS not obtained. ORT, PHQ-9 and RICK were reviewed today. REINA report was reviewed today and is appropriate. Based upon the above I would consider the patient to be Low risk. PT The patient has completed over six weeks of physical therapy for their pain within the last six months, not beneficial ASSESSMENT/PLAN This is a 57-year-old female with left knee pain This is a workers comp case We will perform left genicular nerve block. I will have her back for follow-up in several weeks for evaluation of its efficacy. If she has good benefit, can perform genicular RFA. If minimal benefit, we will refer back to Dr. Grajeda to discuss surgery. If she is not a surgical candidate, could evaluate other options for pain control in terms of interventional therapy at that point. External records were reviewed and discussed as above, including imaging, clinical notes, and relevant labs. Much of this encounter is an electronic runner worker/tra nslation of spoken language to printed text. The electronic translation of spoken language may permit erroneous or at times nonsensical words of phrases to be inadvertently transcribed; Although I have reviewed the note for such errors, some may still exist. [email or web address] Not available 07/14/2022 12:52:26 Plan of Treatment Reminders Order Date Submit Date Provider Last Modified By Organization Details Last Modified Time Details Appointments None record ed. Lab None record ed. Referral None record ed. Procedures None record ed. Surgeries None record ed. Imaging None record ed. Medication Orders None record ed. Patient TargetsNo targets recorded. Patient InstructionsNo instructions recorded. Reason for Referral None Reported. Results Created Date Observation Date Name Description Value Unit Range Abnormal Flag Note LastModifiedBy Organization Detail LastModifiedTime 07/13/19 23 03/24/2022 MRI, knee, w/o contr ast No observ ation record ed. [email or web address] Not Available 2022 12:52:31 Result Notes None recorded. Problems Name Problem SNOMED Code Status Onset Date Resolution Date Notes Provider Name and Address Organization Details Recorded Time Lumbar radiculopa thy 690566880 Active 2022 Shaniqua stamper null, [place] - [facility] 3 16:15:38 Lumbar spondylosi s 767288400 Active 2022 Shaniqua stamper null, [place] - [facility] 3 16:15:38 Osteoarthr itis of knee 337724441 Active 2022 Shaniqua stamper null, [place] - [facility] 3 16:15:46 Knee pain Active 2022 FRANSISCA Barrientos [facility] 3 16:15:46 Overweight 509934975 Active 2022 FRANSISCA Barrientos [facility] 3 16:15:53 Knee pain Active 2022 FRANSISCA Barrientos [facility] 3 08:26:19 Pain of left knee joint 8229203694537 07 Active 2022 RADHIKA GREENBERG MD [address] [place] [address], [phone] , [facility] 3 13:07:58 Problem Notes None recorded. Procedures Surgical History Date Name Laterality Status Provider Name and Address Organization Details Recorded Time 3 Genicular Nerve RFA - Fluoro, unilateral completed RADHIKA GREENBERG MD [address] [place] [address], [phone], [facility] 07/21/2022 11:00:44 3 Genicular Nerve Block completed RADHIKA GREENBERG MD [address] [place] [address], [phone], [facility] 07/14/2022 13:07:43 Knee Surgery completed Shaniqua sykes [facility] 07/14/2022 08:14:12 Imaging Results None recorded. Procedure Notes None recorded. Medical Equipment None Reported. Allergies Allergen ID Allergen Name Allergen Category Reaction Reaction Severity Criticality Documentation Date Start Date Code Code System Note Provider Name and Address Organization Details Recorded Time 340073 acetamino phen / oxycodone medicatio n Not available Not available Not available 07/14/2022 82450 3 RxNorm FRANSISCA Barrientos [facility] 3 08:12:12 Medications Name Sig Start Date Stop Date Status Note LastModified by Organization Details LastModified Time celecoxib 200 mg capsule active Not Available Not Available Not Available ibuprofen 800 mg tablet Take 1 tablet 3 times a day by oral route. active Not Available Not Available No t Available meloxicam 15 mg tablet active Not Available Not Available Not Available sertraline 100 mg tablet Take 1 tablet every day by oral route. active Not Available Not Available No t Available levothyroxi ne 75 mcg tablet active Not Available Not Available Not Available levothyroxi ne 100 mcg tablet TAKE 1 TABLET BY MOUTH EVERY DAY active Not Available Not Available No t Available gabapentin 300 mg capsule TAKE 1 CAPSULE BY MOUTH EVERY NIGHT AT BEDTIME active Not Available Not Available No t Available mupirocin 2 % topical ointment APPLY TOPICALLY TO THE AFFECTED AREA THREE TIMES DAILY FOR 7 DAYS active Not Available Not Available No t Available methylpredn isolone 4 mg tablets in a dose pack TAKE 1 TABLET BY MOUTH DAILY AFTER A MEAL DIRECTED active Not Available Not Available No t Available amoxicillin 875 mg-potassiu m clavulanate 125 mg tablet TAKE 1 TABLET BY MOUTH EVERY 12 HOURS FOR 10 DAYS 07/21 completed Not Available Not Available Not Available cyclobenzap rine 5 mg tablet active Not Available Not Available Not Available celecoxib active Not Available Not Kim ilable Not Available peg 3350-electr olytes 236 gram-22.74 gram-6.74 gram-5.86 gram solution TAKE 240ML BY MOUTH EVERY 10 MINUTES UNTIL FECAL EFFLUENT IS CLEAR active Not Available Not Available No t Available levothyroxi ne 100 mcg capsule Take 1 capsule every day by oral route. active Not Available Not Available No t Available Vitals Date Recorded Body height Body mass index (BMI) Body weight Oxygen saturation Oxygen saturation in Arterial blood by Pulse oximetry Heart rate Systolic blood pressure Diastolic blood pressure Provider Name and Address Organization Details Last Updated DateTime 3 165.1 cm 28.3 kg/m2 80212.7 g 98 % 98 % 61 /min 131 mm[Hg] 86 mm[Hg] Shaniqua sykes [facility] 3 08:12:00 Social History Question Answer Notes LastModified by Organizat ion Details LastModified Time Tobacco Smoking Status Never Smoker Shaniqua woodall [facility] 07/14/2022 08:13:40 Do You Have An Advance Directive? No Information not available 07/14/2022 What Type Of Diet Are You Following? REGULAR Information not available 07/14/2022 What Is The Highest Grade Or Level Of School You Have Completed Or The Highest Degree You Have Received? BL22703-4 Information not available 07/14/2022 What Was The Date Of Your Most Recent Tobacco Screening? 07/14/2022 Information not available 07/14/2022 Sex: Unknown Functional Status Question Answer Note LastModified by Organizat ion Details LastModified Time Do you use any illicit or recreational drugs? No Information not available 07/14/2022 What is your level of alcohol consumption? None Information not available 07/14/2022 Are you currently employed? Yes Information not available 07/14/2022 What is your exercise level? None Information not available 07/14/2022 Mental Status None recorded. Family History Nothing Reported. Medical History Condition Response Bipolar Disease N Coronary Artery Disease N Gout N Seizure Disorder N Atrial Fibrillation N Thyroid Disease N Hernia N Head Trauma/Injury N Depression N COPD N Anxiety Disorder N Acid Reflux (GERD) N Cancer N Stroke N Skin Disorder N High Cholesterol N Liver Disease N Rheumatoid Arthritis N Headaches N Fibromyalgia N Kidney Disease N Autoimmune Disease N Osteoarthritis N Neurosurgery N DVT N Peptic Ulcer Disease N Anemia N Heart Attack (DE) N Diabetes N Cardiomyopathy N Bleeding Disorder N CHF N AIDS/HIV N Inflammatory Bowel Disease N Dementia N Asthma N Substance Abuse N Sleep Apnea N Hepatitis N Heart Disease N Pulmonary Embolism N Chronic Low Back Pain N Hypertension N Osteoporosis N Gynecological HistoryNo gynecological history recorded. Obstetrics History GPAL:G 0 P 0 0 0 0 Past Encounters Encounter ID Performer Location Encounter Start Date Encounter Closed Date Diagnosis/Indication Diagnosis SNOMED-CT Code Diagnosis ICD10 Code Diagnosis Note [id number] RADHIKA GREENBERG MD [place] [address] [place] [address] 07/14/2022 07:46:29 07/14/2022 08:33:21 Knee pain 81736158 M25.046 [id number] RADHIKA GREENBERG MD [place] [address] [place] [address] 07/14/2022 07:52:58 07/14/2022 08:33:57 Pain of left knee joint 3390000218 19699 M25.270 [id number] MD Waqar WANG [address] [place] [address] 07/21/2022 08:15:03 07/21/2022 09:51:21 Pain of left knee joint 1235079330 20831 M25.562 Health Concerns Section Related Observation LastModified by Organization Detai ls LastModified Time None Recorded Concern Status LastModified by Organization Details LastModified Time None Recorded Advance Directives Directive N: Payers Insurance Date Sequence Insurance Name Policy Number Policy [place] Covered Member ID [place] Member ID Guarantor Name 07/10/2022 CHANDU LEBLANC [employer] Milla Smiley Notes Date Note Type Note Provider Name and Address Organization Details Recorded Time 07/14/2022 text/html KneeReported bypatient.Location:le ft Severity:pain level 10/10; worst pain 10/10 Duration:date of onset: (Feb 26, 2022) Alleviating Factors:sitting; ice; elevation; NSAIDs (Celebrex) Aggravating Factors:standing; walking Previous Surgery:none Prior Imaging:x ray ([facility]); MRI ([facility]) Previous Injections:did not help Previous PT:April-May- Not beneficial-[facility] Medication History:NSAIDs: (Celebrex) Work Related:yes Working:noWork Comp TemplateReported bypatient.Mechanism of Injury:fall Body Parts/Injuries Covered by Claim:knee: left Economic Historian:Yes- present at this visit RADHIKA GREENBERG MD [address] [place] [address], [phone], [facility] 07/14/2022 12:52:43 OBGyn Episode No OBEpisode recorded.
--- NOTE | 2024-12-01 09:33 | XR_ITS ---
FINAL REPORT CLINICAL HISTORY: knee pain states generalized right knee pain COMPARISON: 03/14/2022 FINDINGS: 3 views of the right knee were obtained. There is no acute fracture or dislocation. There is advanced lateral compartment joint space narrowing. Subchondral sclerosis is noted. There is osteophyte formation with small osteophytes along the undersurface of the patella. Soft tissues are unremarkable. IMPRESSION: Moderately advanced hypertrophic changes of osteoarthritis in the lateral compartment joint space. Reviewed, Interpreted and Dictated by Martinez Sadler MD Transcribed by Sarita Naik Authenticated and [facility]
== END 2024-12-01 23:59 | disposition home or self-care (01) ==
LOC: RAD 09:30
PROVIDERS: PCP Nurse Practitioner Family; Visit Provider Orthopaedic Surgery
DX: M17.11 Unilateral primary osteoarthritis, right knee (principal)
CPT/HCPCS: 73562

== ENCOUNTER 2025-02-03 12:54 | Outpatient (CLI) | payer BC, SELFPAY ==
--- OUTSIDE RECORDS SUMMARY | 2024-12-24 11:31 | XMS_ITS | Encounter Summary ---
Author Organization [facility] Address [address] [place] [address] Care Team Providers Care Client Experience Administrator Name Role Phone Jennifer Carlisle VICKI Primary Care Provider +1- [phone] Reason for Referral * Imaging (Routine) - Closed Specialty Diagnoses / Procedures Referred By Prema brown Referred To Contact Radiology Diagnoses Right knee pain Unilateral primary osteoarthritis, right knee Procedures CT Knee Right wo IV Contrast CT Knee Right wo IV Contrast Holger Wright PA [address] [place] [address] Phone: tel: fax: Referral ID Status Reason Start Date Expiration Date Visits Re quested Visits Authorized [id number] Closed 12/18/2024 06/19/2026 1 1 Reason for Visit * Imaging (Routine) - Closed Specialty Diagnoses / Procedures Referred By Prema brown Referred To Contact Radiology Diagnoses Right knee pain Unilateral primary osteoarthritis, right knee Procedures CT Knee Right wo IV Contrast CT Knee Right wo IV Contrast Holger Wright PA [address] [place] [address] Phone: tel: fax: Referral ID Status Reason Start Date Expiration Date Visits Re quested Visits Authorized [id number] Closed 12/18/2024 06/19/2026 1 1 Encounter Details Date Type Department Care Team (Latest Contact Info) Description 12/24/2024 11:31 AM EDT - 12/24/2024 11:59 PM EDT Hospital Encounter [facility] [address] [place] [address] Right knee pain; Unilateral primary osteoarthritis, right knee Discharge Disposition: Home or Self Care Social History Tobacco Use Types Packs/Day Years Used Date Smoking Tobacco: Never Assessed Comments Unknown Sex and Gender Information Value Date Recorded Sex Assigned at Not on file Legal Sex Female 8:58 PM EDT Gender Identity Not on file Sexual Orientation Not on file documented as of this encounter Plan of Treatment Not on file documented as of this encounter Procedures Procedure Name Priority Date/Time Associated Diagnosis Comments CT KNEE RIGHT WO IV CONTRAST Routine 12/24/2024 11:45 AM EDT Right knee pain Unilateral primary osteoarthritis, right knee documented in this encounter Results * CT Knee Right wo IV Contrast (12/24/2024 11:45 AM EDT) Anatomical Region Laterality Modality Knee Right Computed Tomogra phy Impressions 12/24/2024 3:15 PM EDT No fractures. Severe osteoarthrosis, worst at the lateral tibiofemoral compartment. CRITICAL RESULT: No. COMMUNICATION: Per this written report. By electronically signing this report, I, the attending physician, attest that I have personally reviewed the images/data for the above examination(s) and agree with the final edited report. Drafted by Radha Murry MD on 12/24/2024 12:05 PM Final report signed by Oliver Wang MD on 12/24/2024 3:15 PM Narrative 12/24/2024 3:15 PM EDT CLINICAL INDICATION: Right knee osteoarthritis. TECHNIQUE: Multiple axial CT images of right knee were obtained without contrast administration. Reformatted images in the coronal and/or sagittal plane(s) were generated from the axial data set to facilitate diagnostic accuracy and/or surgical planning. Total DLP (Dose-Length Product): 161.57 mGy.cm. Please note: The reported value represents the total of one or more individual components during the CT acquisition on this date and at this time, and as such, the same value may appear in more than one CT report depending on the interpreting/reporting physicians. COMPARISON: None. FINDINGS: Bone: No fractures. Osteopenia. Tricompartmental narrowing and osteophytosis, worst at the lateral compartment. Iomd-ow-wvtyfirt osteoarthritis in the patellofemoral and medial compartments. Dystrophic calcification/ossification along the anterior aspect of the ACL, could be dystrophic calcification from CCPD, S likely loose body. Sclerosis over the lateral tibiofemoral compartment with possible underlying osteochondral injuries. Moderate degenerative changes at the proximal tibiofibular joint. Soft tissue: Small joint effusion. Fat stranding of the Hoffa's fat pad which may suggest inflammatory process. About 1.5 popliteal cyst. Procedure Note Oliver Cruz MD - 12/24/2024 CLINICAL INDICATION: Right knee osteoarthritis. TECHNIQUE: Multiple axial CT images of right knee were obtained without contrastadministration. Reformatted images in the coronal and/or sagittal plane(s)were generated from the axial data set to facilitate diagnostic accuracyand/or surgical planning. Total DLP (Dose-Length Product): 161.57 mGy.cm. Please note: The reportedvalue represents the total of one or more individual components during theCT acquisition on this date and at this time, and as such, the same valuemay appear in more than one CT report depending on theinterpreting/reporting physicians. COMPARISON: None. FINDINGS: Bone: No fractures. Osteopenia. Tricompartmental narrowing andosteophytosis, worst at the lateral compartment. Ayvk-uz-lxghqzadwulrqnwugmghjk in the patellofemoral and medial compartments. Dystrophiccalcification/ossification along the anterior aspect of the ACL, could bedystrophic calcification from CCPD, S likely loose body. Sclerosis overthe lateral tibiofemoral compartment with possible underlyingosteochondral injuries. Moderate degenerative changes at the proximaltibiofibular joint. Soft tissue: Small joint effusion. Fat stranding of the Hoffa's fat padwhich may suggest inflammatory process. About 1.5 popliteal cyst. IMPRESSION: No fractures. Severe osteoarthrosis, worst at the lateral tibiofemoralcompartment. CRITICAL RESULT: No. COMMUNICATION: Per this written report. By electronically signing this report, I, the attending physician, attestthat I have personally reviewed the images/data for the aboveexamination(s) and agree with the final edited report. Drafted by Radha Murry MD on 12/24/2024 12:05 PM Final report signed by Oliver Wang MD on 53:15 PM Holger REYNOSO IMG CT PROCEDURES Final Resul t documented in this encounter Visit Diagnoses Diagnosis Right knee pain Pain in joint, lower leg Unilateral primary osteoarthritis, right knee documented in this encounter Care Teams Client Experience Administrator Relationship Specialty Start Date End Date Jennifer Carlisle APRN [address] [place] [address] PCP - General 12/24/24 documented as of this encounter
--- OUTSIDE RECORDS SUMMARY | 2025-02-03 12:58 | XMS_ITS | Encounter Summary ---
Author Organization Healthcare Address [address] [place] [address] Care Team Providers Care Regulatory Affairs Consultant Name Role Phone Jennifer Carlisle APRN Primary Care Provider +1- [phone] Encounter Details Date Type Department Care Team (Latest Contact Info) Description 12/24/2024 Travel Social History Tobacco Use Types Packs/Day Years Used Date Smoking Tobacco: Never Assessed Comments Unknown Sex and Gender Information Value Date Recorded Sex Assigned at Not on file Legal Sex Female 8:58 PM EDT Gender Identity Not on file Sexual Orientation Not on file documented as of this encounter Plan of Treatment Not on file documented as of this encounter Visit Diagnoses Not on filedocumented in this encounter Care Teams Regulatory Affairs Consultant Relationship Specialty Start Date End Date Jennifer Carlisle APRN [address] [place] [address] PCP - General 12/24/24 documented as of this encounter
--- OUTSIDE RECORDS SUMMARY | 2025-02-03 12:58 | XMS_ITS | Clinical Summary ---
Author Organization Healthcare Address [address] [id number] Care Team Providers Care Single End Sewer Name Role Phone Jennifer Carlisle APRN Primary Care Provider +1- [phone] Encounters Date Type Department Care Team Description 12/24/2024 11:31 AM EDT - 12/24/2024 11:59 PM EDT Hospital Encounter [facility] [address] [place] [address] Right knee pain; Unilateral primary osteoarthritis, right knee Discharge Disposition: Home or Self Care 12/24/2024 Travel from Last 3 Months Social History Tobacco Use Types Packs/Day Years Used Date Smoking Tobacco: Never Assessed Comments Unknown Sex and Gender Information Value Date Recorded Sex Assigned at Not on file Legal Sex Female 8:58 PM EDT Gender Identity Not on file Sexual Orientation Not on file Plan of Treatment Health Maintenance Due Date Last Done Comments [facility]-Depression Screening 1967 [facility]-HIV Screening 1967 [facility]-Hepatitis C Screening 1967 [facility]-/Child/Adol SDOH Screenings 1967 [facility]- SDOH Screenings 1985 [facility]-Adult SDOH Screenings 1985 [facility]-Hepatitis B Vaccines (1 of 3 - 19+ 3-dose series) 1986 [facility]-Pap Smear 1988 [facility]-Cervical Cancer Screening 1997 [facility]-HPV/Cotest 1997 CT Colonography 2012 Colonoscopy 2012 FIT-DNA 2012 FIT 2012 FOBT 2012 Sigmoidoscopy 2012 [facility]-Colorectal Cancer Screening 2012 [facility]-Breast Cancer Screening 2017 [facility]-Pneumococcal Vaccine: 50 + Years (1 of 1 - PCV) 2017 HPP-IWYDD-54 Vaccine (3 - season) 2024 11/04/2020, 10/05/2020 [facility]-Zoster Vaccines (2 of 2) 02/14/2024 12/20/2023 [facility]-Influenza Vaccine (#1) 2025 06/05/2024 [facility]-DTaP,Tdap,and Td Vaccine s (2 - Td or Tdap) 02/27/2032 02/26/2022 HPV Vaccines Aged Out No longer eligi ble based on patient's age to complete this topic [facility]-HIB Vaccines Aged Out No longer e ligible based on patient's age to complete this topic [facility]-Hepatitis A Vaccines Aged Out No longer eligible based on patient's age to complete this topic [facility]-IPV Vaccines Aged Out No longer e ligible based on patient's age to complete this topic [facility]-Rotavirus Vaccines Aged Out No lo nger eligible based on patient's age to complete this topic Procedures Procedure Name Priority Date/Time Associated Diagnosis Comments CT KNEE RIGHT WO IV CONTRAST Routine 12/24/2024 11:45 AM EDT Right knee pain Unilateral primary osteoarthritis, right knee from Last 3 Months Results * CT Knee Right wo IV [...] and osteophytosis, worst at the lateral compartment. Yzmu-hp-suewydym osteoarthritis in the patellofemoral and medial compartments. [...] narrowing andosteophytosis, worst at the lateral compartment. Kplb-mo-rbuxdivmugmjvvyxekmiuc in the patellofemoral and medial compartments. Dystrophiccalcification/ossification [...] REYNOSO IMG CT PROCEDURES Final Resul t from Last 3 Months Insurance ANTHEM ANTHEM Care Teams Single End Sewer Relationship Specialty Start Date End Date Jennifer Carlisle APRN [address] [place] [id number] PCP - General 12/24/24
== END 2025-02-03 23:59 | disposition home or self-care (01) ==
LOC: RAD 12:55
PROVIDERS: Visit Provider Physician Assistant
DX: R69 Illness, unspecified (principal)

== ENCOUNTER 2025-03-25 12:15 | Outpatient (CLI) | payer BC, SELFPAY ==
[2025-03-25 08:40] VITALS: BMI 29.9
--- NOTE | 2025-03-25 12:38 | ECG_ITS ---
APPROVED REPORT Exam: Resting ECG HR:63 bpm ECG Measurements Heart Rate 63 AXES CO 158 P 48 QRSd 93 QRS 15 QT 417 T 21 QTc 424 Conclusion SINUS RHYTHM POSSIBLE ANTERIOR MYOCARDIAL INFARCTION , OF INDETERMINATE AGE [30 ms Q WAVE IN V3/V4, OR R < 0.2 mV IN V4] ABNORMAL ECG UNCONFIRMED REPORT Electronically signed by : Ramiro Alba MD 03/27/2025 08:49:31
--- OUTSIDE RECORDS SUMMARY | 2025-03-25 12:43 | XMS_ITS | Clinical Summary ---
Author Organization Healthcare Address [address] [place] [id number] Care Team Providers Care Machine Repairer Maintenance Name Role Phone Jennifer Carlisle APRN Primary Care Provider [phone]- [phone] Encounters Date Type Department Care Team Description 12/24/2024 11:31 AM EDT - 12/24/2024 11:59 PM EDT Hospital Encounter [facility] [address] [place] [address] Right knee pain; Unilateral primary [...] Years (1 of 1 - PCV) 2017 [facility]Y-Zoster Vaccines (2 of 2) 02/14/2024 12/20/2023 [id number] Vaccine (3 - season) 2025 11/04/2020, 10/05/2020 [facility]Y-Influenza Vaccine (#1) 2025 06/05/2024 [facility]Y-DTaP,Tdap,and Td [...] and osteophytosis, worst at the lateral compartment. Jskn-bt-bltxerjz osteoarthritis in the patellofemoral and medial compartments. [...] narrowing andosteophytosis, worst at the lateral compartment. Jhex-ae-pxmdvdqflqtxmnwjlefmmh in the patellofemoral and medial compartments. Dystrophiccalcification/ossification [...] 3 Months Insurance ANTHEM ANTHEM Care Teams Machine Repairer Maintenance Relationship Specialty Start Date End Date Jennifer Carlisle APRN [address] [place] [id number] PCP - General 12/24/24
--- OUTSIDE RECORDS SUMMARY | 2025-03-25 12:44 | XMS_ITS | Data Portability ---
Author Organization [facility] Address [address] [place] [address] Care Team Providers Care Claim Investigator Name Role Phone RENNY LUKE Zoo Caretaker JESSIE NARANJO Zoo Caretaker Assessment Encounter Date Assessment Date Assessment LastModified by Organization Details LastModified Time 07/14/2022 07/14/2022 HPI: This is a 57-year-old female with left knee pain She was referred by Dr. Grajeda, has left knee pain related to an injury at work. She fell and hit her head and her left knee, since then, has sharp, mechanical pain. She has undergone serial injections at [facility] with steroid in the joint, minimal benefit. Referred to our clinic for evaluation for left genicular nerve block. Denies any radicular pain or infectious symptoms. She is accompanied by her nurse employment evaluator/case manager today. Anticoagulants: None PMHx: Hypothyroidism INJ Hx: Intra-articular steroid injections at [facility] PSHx/Surgical Evaluation: Referred by Dr. Grajeda for [...] Much of this encounter is an electronic hygiene coordinator/tra nslation of spoken language to printed text. [...] Organization Details Recorded Time Lumbar radiculopa thy 616235388 Active 2022 Shaniqua stamper null, [place] - [facility] 3 16:15:38 Lumbar spondylosi s 505791132 Active 2022 Shaniqua stamper null, [place] - [facility] 3 16:15:38 Osteoarthr itis of knee 420679419 Active 2022 Shaniqua stamper null, [place] - [facility] 3 16:15:46 Knee pain Active 2022 FRANSISCA Barrientos [facility] 3 16:15:46 Overweight 825590583 Active 2022 FRANSISCA Barrientos [facility] 3 16:15:53 Knee pain Active 2022 FRANSISCA Barrientos [facility] 3 08:26:19 Pain of left knee joint 2483600436461 07 Active 2022 RADHIKA GREENBERG MD [address] [place] [address], [phone] , [facility] 3 13:07:58 Problem Notes None recorded. Procedures Surgical History Date Name Laterality Status Provider Name and Address Organization Details Recorded Time 3 Genicular Nerve RFA - Fluoro, unilateral completed RADHIKA GREENBERG MD [address] [place] [address], [phone], [facility] 07/21/2022 11:00:44 3 Genicular Nerve Block (unilateral) completed RADHIKA GREENBERG MD [address] [place] [address], [phone], [facility] 07/14/2022 13:07:43 Knee Surgery completed Shaniqua sykes [facility] 07/14/2022 08:14:12 Imaging Results None recorded. Procedure Notes None recorded. Medical Equipment None Reported. Allergies Allergen ID Allergen Name Allergen Category Reaction Reaction Severity Criticality Documentation Date Start Date Code Code System Note Provider Name and Address Organization Details Recorded Time 787576 acetamino phen / oxycodone medicatio n Not available Not available Not available 07/14/2022 84506 3 RxNorm Shaniqua woodall [facility] 3 08:12:12 Medications Name Sig Start [...] height Body mass index (BMI) Body weight Pain severity - 0-10 verbal numeric rating [Score] - Reported Oxygen saturation Oxygen saturation in Arterial blood by Pulse oximetry Heart rate Systolic And Diastolic Provider Name and Address Organization Details Last Updated DateTime 3 165.1 cm 28.3 kg/m2 37423.7 g 10 98 % 98 % 61 /min 131/86 mm[Hg] Shaniqua sykes [facility] 3 08:12:00 Social History Question Answer Notes LastModified by Organizat ion Details LastModified Time Tobacco Smoking Status Never Smoker Shaniqua woodall [facility] 07/14/2022 08:13:40 Do You Have An Advance Directive? No Information not available 07/14/2022 What Type Of Diet Are You Following? REGULAR Information not available 07/14/2022 What Is The Highest Grade Or Level Of School You Have Completed Or The Highest Degree You Have Received? [id number] Information not available 07/14/2022 What Was The [...] Disease N Gout N Seizure Disorder N Thyroid Disease N Atrial Fibrillation N Hernia N Head Trauma/Injury N COPD N Depression N Anxiety Disorder N Acid Reflux (GERD) N Cancer N Skin Disorder N Stroke N High Cholesterol N Liver Disease N Rheumatoid Arthritis N Fibromyalgia N Headaches N Autoimmune Disease N Kidney Disease N Osteoarthritis N Neurosurgery N DVT N Peptic Ulcer Disease N Anemia N Heart Attack ([place]) N Diabetes N Cardiomyopathy N Bleeding Disorder [...] Diagnosis SNOMED-CT Code Diagnosis ICD10 Code Diagnosis IMO Codes Diagnosis Note [id number] MD Al WANGington [address] [place] [address] 07/14/2022 07:46:29 07/14/2022 08:33:21 Knee pain 26655405 M25.153 [id number] MD Waqar WANG [address] [place] [address] 07/14/2022 07:52:58 07/14/2022 08:33:57 Pain of left knee joint 8479009069 32542 M25.142 [id number] MD Waqar WANG [address] [place] [address] 07/21/2022 08:15:03 07/21/2022 09:51:21 Pain of left knee joint 4507296739 57009 M25.562 Health Concerns Section Related Observation LastModified by Organization Detai ls LastModified Time None Recorded Concern Status LastModified by Organization Details LastModified Time None Recorded Advance Directives Directive N: Payers Insurance Date Sequence Insurance Name Policy Number Policy [place] Covered Member ID [place] Member ID Guarantor Name 07/10/2022 CHANDU LEBLANC [employer]illa Resi Notes Date Note Type Note Provider Name and Address Organization Details Recorded Time 07/14/2022 text/html KneeReported by PatientHPIFor location, patient reportsleft. For severity, patient reportspain level 10/10andworst pain 1010. For duration, patient reportsdate of onset: (feb 26, 2022). For alleviating factors, patient reportssitting,ice,el evation, andnsaids (celebrex). For aggravating factors, patient reportsstandingjordan jakcie. For previous surgery, patient reportsnone. For prior imaging, patient reportsx ray ([facility])andmri ([facility]). For previous injections, patient reportsdid not help. For medication history, patient reportsnsaids: (celebrex). For work related, patient reportsyes. For working, patient reportsno. For previous pt, ([facility] [place] Work Comp TemplateReported by PatientHPIFor mechanism of injury, patient reportsfall. For body parts/injuries covered by claim, patient reportsknee: left. For employment evaluator/case manager, patient reportsyes- present at this visit. RADHIKA GREENBERG MD [address] [place] [address], [phone], [facility] 07/14/2022 12:52:43 OBGyn Episode No OBEpisode recorded.
[2025-03-25 12:50] LABS: Hematocrit 38.0 % (37.0-47.0); Hemoglobin 12.4 g/dL (12.2-16.2); Immature Granulocytes % 0.3 %; Mean Corpuscular HGB Conc 32.6 g/dL (31.8-35.4); Mean Corpuscular Hemoglobin 27.1 pg (27.0-31.2); Mean Corpuscular Volume 83.2 fl (81-99); Nucleated Red Blood Cells % 0 %; Platelet Count 206 K/mm3 (142-424); Red Blood Count 4.57 M/mm3 (4.20-5.40); Red Cell Distribution Width-SD 42.2 fL; White Blood Count 5.9 K/mm3 (4.8-10.8)
[2025-03-25 12:53] LABS: Chloride 105 mmol/L (98-107); Potassium 4.0 mmoL/L (3.5-5.1); Sodium 140 mmol/L (136-145)
[2025-03-25 12:56] LABS: Anion Gap 11.0 mEq/L (5-15); Blood Urea Nitrogen 20 mg/dl (7-17); Calcium 8.7 mg/dl (8.4-10.2); Carbon Dioxide 28 mmol/L (22.0-30.0); Creatinine Clearance Estimated 100 mL/min (50-200); Creatinine,Serum 0.80 mg/dl (0.52-1.04); Estimated Glomerular Filt Rate 74 ml/min (>60); GFR (African American) 89 ML/MIN (>60); Glucose 101 mg/dl (74-100)
== END 2025-03-25 23:59 | disposition home or self-care (01) ==
LOC: PREOP 12:17
PROVIDERS: PCP Nurse Practitioner Family; Visit Provider Orthopaedic Surgery
DX: Z01.810 Encounter for preprocedural cardiovascular examination (principal); Z01.812 Encounter for preprocedural laboratory examination; R94.31 Abnormal electrocardiogram [ECG] [EKG]
CPT/HCPCS: 80048; 85025; 93005

== ENCOUNTER 2025-03-31 12:18 | Observation (INO) | payer BC, SELFPAY ==
--- NOTE | 2025-03-10 13:11 | SW/DCPLANNER ---
Addendum entered by Saba Rawls 04/01/25 10:43: Per PT outpatient therapy is recommended at time of discharge. Patient is agreeable to outpatient PT and this has been set up at [facility] for tomorrow 04/02. Patient confirmed she does have a rolling walker at home. Original Note: I spoke w/ patient regarding upcoming TKA. Patient stated that she resides at home w/ her and plans to return back home after surgery. Patient is agreeable to outpatient PT services at [facility]. Patient also stated that she has a rolling walker at home. CM will follow up w/ patient on day of procedure.
[2025-03-25 14:38] VITALS: BMI 29.9
[2025-03-31] VITALS (17 sets, daily range): BP systolic 90–148; BP diastolic 57–81; PULSE 63–78; RESP 16–20; TEMP 36.2–38; O2SAT 94–98; BMI 29.9
[2025-03-31] MEDS: LACTATED RINGERS 1000ML 1,000 ML 100 ML IV (08:30)
--- NOTE | 2025-03-31 09:46 | EXP.ANES.CKL ---
[facility] Disclaimer: The information contained in this section may have been updated after the patient was seen, as this information can be updated by other users. Medical History Thyroid disease Depression Colonoscopy planned Normal colonoscopy History of COVID-19 Arthritis Hypothyroid Occipital neuralgia of right side Surgical History History of colonoscopy H/O left knee surgery Family History Brother Cancer Mother CHF (congestive heart failure) Father Family history of emphysema Family/Other Diabetes Social History (Updated 03/31/25 @ 08:11 by Aleshia Escalante RN) Smoking Status: Never smoker second hand exposure: No alcohol intake: never substance use type: denies use current occupational status: employed Travel in the last 8 weeks?: None household members: spouse housing: house marital status: number of children: 0 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 current occupational exposures/hazards: No caffeine: Yes Have you lived/traveled outside [place] in past 30 days?: No Contact w/someone who lives/traveled outside US past 30 days?: No Exposure to someone with infectious disease in past 14 days?: No Do you have a fever (greater than 100.4 F or 38 C)?: No Have you tested positive for COVID-19?: No Exposed to someone with COVID-19 in past 14 days?: No Do you have a sore throat?: No Do you have a cough?: No Do you have any weakness?: No Are you experiencing any nausea/vomitting?: No Do you have any diarrhea?: No Are you experiencing any unusual bleeding?: No Do you have any muscle aches/pain?: No Do you have any abdominal pain?: No Are you experiencing loss of taste or smell?: No [facility] Anesthesia Checklist Patient Identification Patient Identification: Arm Band Structural Data Admitted From: Home Planned Operative Procedure/s: Right Total Knee Arthroplasty Consent for Planned Operative Procedure(s) Verified: Yes Verified Documents: Surgical Consent and History and Physical NPO Status Verified Time NPO: 00:00 Additional verifications Anesthesia Reactions: No Hx Blood Transfusions: No Blood Transfusion Reaction: No Airway Assessment Mallampati Score:: Class II C-Spine Mobility Assessed: Yes TMJ Mobility Assessed: Yes Dentition: Good Dentition Neurological Assessment Level of Consciousness: Awake, Alert and Appropriate Anesthesia Plan Anesthesia Risk discussed: Yes Anesthesia Plan: Verified ASA Class: II Anesthesia Type: MAC w/Spinal (with Right Adductor Canal Block at end of procedure. Risks/benefits explained. Pt verbalized understanding)
[2025-03-31] MEDS: TRANEXAMIC ACID IV ×2 (10:15→12:30)
[2025-03-31] MEDS: SODIUM CHLORIDE 0.9% IV ×2 (10:15→12:30)
--- NOTE | 2025-03-31 12:33 | HMH.PHAINT1 ---
Pharmacy Intervention Comments: MEDICATION RECONCILIATION COMPLETED ON PATIENT USING EXTERNAL FILL HISTORY FROM PHARMACY. -SARTHAK TIMMONS, KRISTIND
--- NOTE | 2025-03-31 12:56 | XR_ITS ---
FINAL REPORT CLINICAL HISTORY: Status post right total knee arthroplasty FINDINGS: RIGHT KNEE Two views demonstrate no acute fracture or dislocation. Patient is status post total knee arthroplasty. Visualized joint spaces are normally aligned. Gas is seen in the soft tissues. There are overlying skin bertin. IMPRESSION: Postoperative changes without acute bony abnormality. Reviewed, Interpreted and Dictated by Martinez Sadler MD Transcribed by Ana Laura Bob Authenticated and [facility]
--- NOTE | 2025-03-31 13:16 | EXP.OP.NOTE ---
Date of procedure: 03/31/25 Pre-op Diagnosis:: Right end-stage osteoarthritis Post-op Diagnosis:: Same Procedure performed:: Right total knee arthroplasty Surgeon:: Faisal Grajeda DO Door And Arrival Attendant(s):: Godfrey ADDISON LIVESTOCK JUDGING COACH:: Jose Guadalupe Farrell Anesthesia: regional and spinal Estimated blood loss (mL): 50 Clinical Note:: Implants Medacta size 4 femur 3/4 tibia size 2 patella and 11 mm poly insert Operative findings:: See dictation Operative note:: Patient identified preoperatively. Right knee marked yes my initials. Transported operative suite. Placed upon operating bed. Then put on the side and given spinal anesthesia. Once adequate anesthesia then placed right lower extremity was prepped and draped in normal sterile fashion. Once prepped and draped final operative timeout performed to identify proper patient procedure and extremity. Everyone involved in the case agreed. There is no counter indications beginning. Did receive preoperative antibiotics. Marking pen was used to mihir planned incision midline in the knee Esmarch was used to exsanguinate the extremity pneumatic tourniquet inflated to 300 mmHg. Knee flexed skin knife was used incise the skin soft tissues capsule was identified standard medial parapatellar approach was utilized patella was everted anterior horns of medial and lateral meniscus were sacrificed ACL sacrificed. Attention brought to the femur soft tissue on the anterior aspect the femur was cut and elevated with the Clancy elevator. Intramedullary femoral carl was selected and the distal cutting guide was utilized distal femoral cut was made posterior referencing sizing guide sized to a size 4 femur. Size four 4-in-1 cutting block was utilized anterior posterior cuts anterior and posterior chamfer cuts. Osteotome used to remove the bone. Trial size 4 femur was impacted into place and gave good fit and fill. Attention is then brought to the tibia the posterior retractor was placed Hohmann's placed the extramedullary tibial cutting guide was selected and placed around the ankle the 10 mm measuring device off of the medial side which was preoperatively templated was utilized. Caliper was used to confirm osteotomy after flat tibial cut was made. The tibial tray was then selected and impacted into place within a reamer and a broach. The femoral trial was then reimpacted and a size 10 poly was placed and gave good extension stable through range of motion and very slight loosening in both flexion and extension so I upsized to a size 11 poly which gave good fit and fill and good stable range of motion flexion and extension. Attention was then brought the patella and the patella clamp was selected caliper was placed measure the patella and 10 mm of patella was cut sized to a size 2 and the 2 trial was placed after the peg holes were drilled. With all the implants trials in place the knee was ranged through range of motion and found to be very stable Final implants opened on the back table. Once final implants were open cement was mixed. Irrigation with Pulsavac was performed along with drying of the surfaces. And then in standard fashion pressurizing the tibia and the femoral holes the tibia was cemented into place and impacted into place poly was then placed and then the femur was cemented in place leg was brought in extension all excess cement was removed. Attention was brought to cementing the patella component the size 2 patella resurfacing was cemented into place the leg was held in extension irrigation was performed Once the cement was hardened the tourniquet was deflated and the hemostasis was obtained with the electrocautery. Irrigation repeated final implants in good position knee taken through range of motion. Hemostasis confirmed. Deep layer was repaired with a running #1 strata fix suture for the capsule deep layers with 0 Vicryl subcutaneous with 2-0 Vicryl surgical clips in the skin for closure sterile dressing placed from toe to thigh patient waken anesthesia taken recovery in stable condition after undergoing a adductor canal block with anesthesia postoperatively.. Condition: stable Disposition: PACU Complications:: None apparent
--- NOTE | 2025-03-31 13:22 | EXP.ANES.I ---
[facility] Anesthesia Record Part I Anesthesia Record I Intake, IV Amount: 1,600 Hydration: Adequate Estimated blood loss (mL): 17 Urine output (mL): 1,000 Blood Products used (#): none Blood Pressure: 112/76 SaO2: 96 Pulse Rate: 74 Airway Patency: Patent Respiratory Rate: 16 Temperature: 97.2 F Patient is:: Drowsy and Stable Stable to PACU at:: 13:17
--- NOTE | 2025-03-31 13:47 | PC.NURSE ---
arrived by bed form surgery
[2025-03-31 14:00] LABS: Microscopic,Cath URINE MICROSCOPIC (MICROSCOPIC)
--- NOTE | 2025-03-31 14:03 | P.PNANES_ITS ---
[facility] Anesthesia Record Part II Anesthesia Record Part II Discharge Time: 13:38 Destination: Medical Surgical Department PACU nurse assessment reviewed?: Yes Patient Condition:: Good Anesthesia Complications:: None Swallowing reflex intact?: Yes Airway Patency: Patent Cyanosis?: No Blood Pressure: 143/78 SaO2: 98 Respiratory Rate: 18 Pulse Rate: 69 Temperature: 97.2 F Mental Status: Alert & Oriented Pain level:: 0 Nausea and/or vomitting:: None Intake, IV Amount: 0 Hydration: Adequate
[2025-03-31 15:04] LABS: Appearance,Urine/Cath CLEAR (Clear); Bilirubin,Cath Negative (Negative); Blood, Urine/Cath Negative (Negative); Color,Urine/Cath YELLOW (Yellow); Glucose,Urine/Cath (UA) Negative (Negative); Ketones,Urine/Cath Negative (Negative); Leukocyte Esterase,Cath Negative (Negative); Nitrate,Cath Negative (Negative); PH,Urine/Cath 7.5 (5.0-8.5); Protein,Urine/Cath Negative (Negative); Specific Gravity, Urine/Cath 1.010 (1.005-1.030); Urobilinogen,Cath 0.2 EU/dl (0.2)
[2025-03-31 16:01] LABS: WBC,Urine/Cath Occasional #/hpf (0-3)
[2025-03-31] MEDS: HYDROCODONE/APAP 5/325 MG TABLET 1 TAB PO ×2 (19:39→21:36)
[2025-03-31] MEDS: KETOROLAC 15MG/ML VIAL 15 MG IV (21:36)
[2025-03-31] MEDS: GABAPENTIN 300MG CAPSULE 300 MG PO (21:36)
[2025-03-31] MEDS: ASPIRIN EC 81MG TABLET 81 MG PO (21:36)
[2025-03-31] MEDS: CELECOXIB 100MG CAPSULE 100 MG PO (21:36)
[2025-04-01] VITALS: BP 106/64; PULSE 78; RESP 16; TEMP 36.9; O2SAT 95
[2025-04-01] MEDS: HYDROCODONE/APAP 5/325 MG TABLET 1 TAB PO ×3 (01:35→09:15)
[2025-04-01 04:00] VITALS: BP 106/53; PULSE 78; RESP 18; TEMP 36.9; O2SAT 93; BMI 32.1
[2025-04-01 06:16] LABS: Hematocrit 35.8 % (37.0-47.0); Hemoglobin 11.4 g/dL (12.2-16.2); Immature Granulocytes % 0.5 %; Mean Corpuscular HGB Conc 31.8 g/dL (31.8-35.4); Mean Corpuscular Hemoglobin 26.7 pg (27.0-31.2); Mean Corpuscular Volume 83.8 fl (81-99); Nucleated Red Blood Cells % 0 %; Platelet Count 199 K/mm3 (142-424); Red Blood Count 4.27 M/mm3 (4.20-5.40); Red Cell Distribution Width-SD 42.3 fL; White Blood Count 8.4 K/mm3 (4.8-10.8)
[2025-04-01 06:18] LABS: Anion Gap 11.4 mEq/L (5-15); Blood Urea Nitrogen 22 mg/dl (7-17); Calcium 8.8 mg/dl (8.4-10.2); Carbon Dioxide 28 mmol/L (22.0-30.0); Chloride 102 mmol/L (98-107); Creatinine Clearance Estimated 100 mL/min (50-200); Creatinine,Serum 0.80 mg/dl (0.52-1.04); Estimated Glomerular Filt Rate 74 ml/min (>60); GFR (African American) 89 ML/MIN (>60); Glucose 109 mg/dl (74-100); Potassium 4.4 mmoL/L (3.5-5.1); Sodium 137 mmol/L (136-145)
--- NOTE | 2025-04-01 07:47 | EXP.HPDC ---
General Admission date:: 03/31/25 *Admission Date: 03/31/25 *Chief complaint: R knee osteoarthritis *History of present illness: Patient seen in outpatient clinic for R knee osteoarthritis, failed conservative measures, and opted for R Total Knee Arthroplasty on 03/31/[address] Grajeda after discussing risks, benefits, and alternatives. [facility] Disclaimer: The information contained in this section may have been updated after the patient was seen, as this information can be updated by other users. Medical History Thyroid disease Depression Colonoscopy planned Normal colonoscopy History of COVID-19 Arthritis Hypothyroid Occipital neuralgia of right side Surgical History History of colonoscopy H/O left knee surgery Family History Brother Cancer Mother CHF (congestive heart failure) Father Family history of emphysema Family/Other Diabetes Social History (Updated 03/31/25 @ 08:11 by Aleshia Escalante RN) Smoking Status: Never smoker second hand exposure: No alcohol intake: never substance use type: denies use current occupational status: employed Travel in the last 8 weeks?: None household members: spouse housing: house marital status: number of children: 0 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 current occupational exposures/hazards: No caffeine: Yes Other Medical History Have you received the Flu Vaccine for this season: Yes Have you received the Pneumonia Vaccine: No Review of Systems Review of Systems Review of systems:: pertinent systems reviewed and negative unless documented below Exam Data for Last 24 hours Vital signs and Labs for Last 24 Hours: Temp Pulse Resp BP Pulse Ox O2 Del Method O2 Flow Rate 98.5 F 78 18 106/53 L 93 L Room Air 2 04/01/25 04:00 04/01/25 04:00 04/01/25 04:00 04/01/25 04:00 04/01/25 04:00 04/01/25 06:55 04/01/25 04:00 Laboratory Results - last 24 hr 03/31/25 10:30: Urine Color Yellow, Urine Appearance Clear, Urine pH 7.5, Ur Specific [place] 1.010, Urine Protein Negative, Urine Glucose (UA) Negative, Urine Ketones Negative, Urine Blood Negative, Urine Nitrate Negative, Urine Bilirubin Negative, Urine Urobilinogen 0.2, Ur Leukocyte Esterase Negative, Urine RBC None, Urine WBC Occasional, Ur Squamous Epith Cells None, Urine Bacteria None 04/01/25 05:23: WBC 8.4, RBC 4.27, Hgb 11.4 L, Hct 35.8 L, MCV 83.8, MCH 26.7 L, MCHC 31.8, RDW 13.9, Plt Count 199, MPV 9.9, Neut % (Auto) 76.0, Lymph % (Auto) 14.9, [place] % (Auto) 8.3, Eos % (Auto) 0.1, Baso % (Auto) 0.2, Neut # (Auto) 6.4, Lymph # (Auto) 1.3, [place] # (Auto) 0.7, Eos # (Auto) 0.0, Baso # (Auto) 0.0, Sodium 137, Potassium 4.4, Chloride 102, Carbon Dioxide 28, Anion Gap 11.4, BUN 22 H, Creatinine 0.80, Estimated Creat Clear 100, Estimated GFR 74, Est GFR ( Amer) 89, Glucose 109 H, Calcium 8.8 I & O for Last 24 hours: Intake & Output 03/29/25 03/30/25 03/31/25 04/01/25 23:59 23:59 23:59 23:59 Intake Total 3586.2 / 3886.2 400 / 400 Output Total 1800 / 1800 550 / 550 Balance 1786.2 / 2086.2 -150 / -150 Weight 81.647 kg 87.634 kg *Routine HEENT Exam Head: Present normocephalic Eye: Present EOMI ENT: Present mucous membranes moist *Routine Respiratory Exam Respiratory: Present normal respiratory effort *Routine Cardiovascular Exam Cardiovascular: Present other *Routine Abdominal Exam Abdominal: Present soft *Routine Rectal Exam Rectal:: deferred *Routine Genitalia Exam Genitalia:: deferred Detailed Lower Extremity Exam Comments: Right knee: Surgical dressing clean dry and intact. Polar pack in place. Calves soft and nontender. Grossly neurovascularly intact with +2 DP, sensation intact to light touch in the first dorsal webspace and plantar aspect equal bilaterally. Motor function intact to EHL/FHL/GS/TA. Postop x-rays done on 03/31/2025 show a well-seated total knee replacement with good cement mantle. Meds Home Medications and Allergies Home Medications ?Medication ?Instructions ?Recorded ?Confirmed ?Type sertraline 100 mg tablet 100 mg PO DAILY 08/20/17 03/31/25 History levothyroxine 100 mcg tablet 100 mcg PO DAILY 02/09/22 03/31/25 History ropinirole 0.25 mg tablet 0.25 mg PO BID 03/25/25 03/31/25 History aspirin 81 mg tablet,delayed 81 mg PO BID #90 tabs 04/01/25 Rx release celecoxib 100 mg capsule (Celebrex) 100 mg PO BID #20 caps 04/01/25 Rx gabapentin 300 mg capsule 300 mg PO BID #20 caps 04/01/25 Rx hydrocodone 5 mg-acetaminophen 325 1 tab PO Q4HP PRN Severe Pain 04/01/25 Rx mg tablet (7-10) #42 tabs New Prescriptions to Start Prescriptions: hydrocodone-acetaminophen Taras,Faisal [place] aspirin Taras,Faisal [place] celecoxib [Celebrex] Taras,Faisal Madison gabapentin Taras,Faisal Madison Allergies Allergy/AdvReac Type Severity Reaction Status Date / Time oxycodone (From Percocet) Allergy Unknown Hives Verified 03/31/25 08:27 Hospital Course Hospital Course Hospital Course: Patient was admitted to orthopedic service on 03/31/2025 status post right total knee arthroplasty with Dr. Grajeda. Patient was transferred from PACU to floor in stable condition. Patient underwent physical therapy, with labs and vitals taken per floor protocol. Richard was removed POD#1. Inpatient stay was uneventful, and patient was discharged on postop day 1 with labs and vitals stable, and recommendations for discharge by physical therapy. Case management was involved in discharge planning, and patient and family understood and agreed with the recommendations. Patient was discharged in stable condition with all medications and outpatient orders in place at time of discharge. Results Data Completed and Pending Labs on day of discharge: Labs from last 24 hours 04/01/25 03/31/25 05:23 10:30 WBC 8.4 RBC 4.27 Hgb 11.4 L Hct 35.8 L MCV 83.8 MCH 26.7 L MCHC 31.8 RDW 13.9 Plt Count 199 MPV 9.9 Neut % (Auto) 76.0 Lymph % (Auto) 14.9 [place] % (Auto) 8.3 Eos % (Auto) 0.1 Baso % (Auto) 0.2 Neut # (Auto) 6.4 Lymph # (Auto) 1.3 [place] # (Auto) 0.7 Eos # (Auto) 0.0 Baso # (Auto) 0.0 Sodium 137 Potassium 4.4 Chloride 102 Carbon Dioxide 28 Anion Gap 11.4 BUN 22 H Creatinine 0.80 Estimated Creat Clear 100 Estimated GFR 74 Est GFR ( Amer) 89 Glucose 109 H Calcium 8.8 Urine Color Yellow Urine Appearance Clear Urine pH 7.5 Ur Specific [place] 1.010 Urine Protein Negative Urine Glucose (UA) Negative Urine Ketones Negative Urine Blood Negative Urine Nitrate Negative Urine Bilirubin Negative Urine Urobilinogen 0.2 Ur Leukocyte Esterase Negative Urine RBC None Urine WBC Occasional Ur Squamous Epith Cells None Urine Bacteria None DS: Diagnosis Discharge Diagnosis (1) Osteoarthritis of right knee: Status: Acute Code(s): M17.11 - Unilateral primary osteoarthritis, right knee Qualifiers: Osteoarthritis type: primary Qualified Code(s): M17.11 - Unilateral primary osteoarthritis, right knee Problem details: s/p R TKA on 03/31/[address] Grajeda Discharge Plan Disposition Patient Disposition: Home, Self-Care Condition: Other Follow up Plan Follow up with: Cielo Donahue PA [Physician [employer], Orthopedics] - 04/13/25 9:30 am Referral Note: Follow up in office for staple removal and wound check. Prescriptions/Medication Reconciliation: New aspirin 81 mg Tablet,Delayed Release (Dr/Ec) 81 mg PO BID Qty: 90 0RF hydrocodone-acetaminophen 5-325 mg Tablet 1 tab PO Q4HP PRN (Reason: Severe Pain (7-10)) Qty: 42 0RF gabapentin 300 mg Capsule 300 mg PO BID Qty: 20 0RF celecoxib [Celebrex] 100 mg Capsule 100 mg PO BID Qty: 20 0RF Continued sertraline 100 MG tablet 100 mg PO DAILY Patient Comments: levothyroxine 100 mcg tablet 100 mcg PO DAILY Patient Comments: ropinirole 0.25 mg Tablet 0.25 mg PO BID Discontinued celecoxib 200 mg Capsule 200 mg PO BID Problem Reconciliation Problems Reviewed?: Yes Patient Discharge Instructions ACTIVITY: Continue current activity, Ambulate as tolerated and Up with assistance DIET: continue same diet and advance to your usual diet Patient Instructions: Knee Replacement, DI for Surgical Site Infection, Catheter-Associated Urinary Tract Infection Print Language: Slovak Providers Primary Care Provider: Jennifer Carlisle Admit Provider: Faisal Grajeda Attending Provider: Faisal Grajeda
[2025-04-01 08:00] VITALS: BP 94/52; PULSE 63; RESP 16; TEMP 36.4; O2SAT 94
[2025-04-01] MEDS: GABAPENTIN 300MG CAPSULE 300 MG PO (09:14)
[2025-04-01] MEDS: ASPIRIN EC 81MG TABLET 81 MG PO (09:14)
[2025-04-01] MEDS: CELECOXIB 100MG CAPSULE 100 MG PO (09:15)
--- NOTE | 2025-04-01 10:16 | HMH.PTEV ---
Physical Therapy Evaluation Rehab PT IP Evaluation Start: 03/31/25 12:57 Freq: ONCE Status: Active Protocol: Document 04/01/25 10:05 KJ (Rec: 04/01/25 10:16 KJ [id number]) Subjective/History History History Pt is a 59 y/o female who presents s/p R TKA 03/31/25. Subjective Subjective Pt reports she lives with her in a SS home. Pt normally IND with all mobility without AD use. Pt does still own a RW form last TKA. New diagnosis of No cancer in past 12 months? [facility] How much help from another person do you currently need... Turning from your None back to your side while in a flat bed without using bedrails? Moving from lying on None back to sitting on the side of a flat bed without using bedrails? Moving to and from a None bed to a chair ( including a wheelchair)? Standing up from a None chair using your arms? (e.g., wheelchair, bedside chair) Walking in hospital None room? Climbing 3-5 steps A little with a railing? Mobility Score 23 Mobility Level [facility] Mobility 7 Walk 25 feet or more Mobility Calculator Rehab PT IP Eval Objective Appearance Patient Behavior Appropriate,Cooperative Patient Orientation Person,Situation Difficulty following none instructions Speech Pattern Clear Ambulation Patient Able to Yes Ambulate Ambulation Observation IP General Gait Wide Based Gait Pattern Observation Ambulation Distance 28 (feet) Ambulation Assistive Rolling Walker Device Ambulation Ability Supervision/Stand by Balance Ability to Arise Able, uses arms to help Sitting Balance Steady, safe Standing Balance Steady, wide stance Dynamic Sitting Good Balance Ability Dynamic Standing Good Balance Ability Transfers Bed Transfer Ability Supervision/Stand by Sit to Stand Bed Supervision/Stand by Transfer Ability Rehab PT IP prob,goals,plan Problems Date of Evaluation: 04/01/25 PT IP Problems Transfers,Gait,Balance,Safety Rehab Potential Rehab Potential Good Plan PT Intervention Plan Transfers,Gait,Balance,Self care,Safety,Therapeutic Exercise Other Intervention 1-2 times Plan PT Plan Frequency Daily Duration LOS Discharge Goals Bed Transfer Ability Independent Sit to Stand Chair Independent Transfer Ability Ambulation Distance 40 (feet) Discharge Plan PT Discharge Plan Initial physical therapy evaluation performed. Patient presents below baseline at this time in functional mobility, transfers, gait, and strength. Pt would benefit from skilled PT while at [facility] to prevent further functional decline and maximize safety with mobility. Pt most appropriate to d/c home when deemed medically necessary d/t current level of mobility, home set-up, and family support. PT recommending OP PT services to address deficits. Eval Complexity Eval Charge Codes 24398 - Moderate Complexity PHYSICIAN CERTIFICATION: I certify the specified therapy services for Milla Reis are required, authorized, and reviewed every 30 days.
--- NOTE | 2025-04-02 10:19 | SW/DCPLANNER ---
Spoke with patient on the phone. Patient stated that she is doing good. Patient stated that she is aware of her upcoming appointments. Patient stated that she got her new medicine picked up from the pharmacy. Patient stated that she has no concerns or questions at this time. Jeromy Medrano
== END 2025-04-01 12:15 | disposition home or self-care (01) ==
LOC: 2ND 12:20
PROVIDERS: Admitting Provider Orthopaedic Surgery; PCP Nurse Practitioner Family; Visit Provider Orthopaedic Surgery
PROC: (CPT 27447; principal; 2025-03-31 09:15)
DX: M17.11 Unilateral primary osteoarthritis, right knee (principal); F32.A Depression, unspecified; E03.9 Hypothyroidism, unspecified; Z88.5 Allergy status to narcotic agent; Z96.653 Presence of artificial knee joint, bilateral; Z79.01 Long term (current) use of anticoagulants; Z98.890 Other specified postprocedural states; Z79.890 Hormone replacement therapy; Z79.899 Other long term (current) drug therapy
CPT/HCPCS: 27447; 36415; 51702; 73560; 80048; 81001; 85025; 96361; 96365; 96375; 96376; 97162; C1776; G0378; J0690; J1100; J1885; J2250; J2405; J2704; J3010; J7050; J7120

== ENCOUNTER 2025-04-02 12:45 | Outpatient (RCR) | payer BC, SELFPAY ==
--- NOTE | 2025-04-02 13:56 | HMH.PTOPEV ---
PT Evaluation Rehab PT Outpatient Evaluation Start: 04/02/25 13:09 Freq: Status: Active Protocol: Document 04/02/25 13:10 JAGDISH (Rec: 04/02/25 13:55 JAGDISH [id number]) E-signed By Emery Gong, PT Outpatient Therapy Subjective History Subjective History Pt is a 59 yof who is referred to [facility] outpatient PT s/p R TKA. Pt reports that she lives in a house with her . Pt reports that she was walking independently prior to surgery. Pt reports that she is not having a lot of pain at the moment but reports that she has been taking her pain medicine as prescribed. Pt reports that she is not having any difficulty walking around her house with her walker. Pt reports that she plans to return to work in may. PMH: Prior L TKA, hypothyroidism, depression Occupation: [employer] New diagnosis of No cancer in past 12 months? Chief Complaint Pain,Stiff Symptom Type Ache,Sharp Symptoms Relieved By Ice,Prescription Meds Symptoms Aggravated Standing,Walking By Prior Functional None Limitations Current Functional Lifting,Housework,Standing,Squatting,Recreation Limitations Activity,Walking,Stairs Symptom Description Intermittent,Activity Dependent Level of pain today 5 (0-10) Pain scale - at its 4 best (0-10) Pain scale - at its 10 worst (0-10) Hip/Knee Eval Gait Observation General Gait Pattern Antalgic Gait,Decrease Weight Bear (R),Decrease Stride Observation Lngth (L) Assistive Device Assistive Devices Standard Walker Palpation Tenderness right Knee Palpation Tenderness Finding Knee Palpation 3/4 to R knee globally Overall Comment MMT Hip Flexion Strength 4- Good- Grade Hip Abduction 4- Good- Strength Grade Hip Adduction 4- Good- Strength Grade Hip Extension 4- Good- Strength Grade Knee Extension 2 Poor Strength Grade Knee Flexion 2 Poor Strength Grade ROM Knee Extension -6 Active Range of Motion (degrees) Knee Extension -4 Passive Range of Motion (degrees) Knee Flexion Active 68 Range of Motion ( degrees) Knee Flexion Passive 70 Range of Motion ( degrees) Lower Extremity Functional Index Activities Today, do you or would you have any difficulty at all with: a.Any of your usual Extreme difficulty or unable to perform activity work, housework or school activities b. Your usual Extreme difficulty or unable to perform activity hobbies, recreational or sporting activities c. Getting into or Extreme difficulty or unable to perform activity out of the bath d. Walking between Quite a bit of difficulty rooms e. Putting on your Quite a bit of difficulty shoes or socks f. Squatting Quite a bit of difficulty g. Lifting an object Quite a bit of difficulty , like a bag of groceries from the floor h. Performing light Quite a bit of difficulty activities around your home i. Performing heavy Quite a bit of difficulty activities around your home j. Getting into or Quite a bit of difficulty out of a car k. Walking 2 blocks Extreme difficulty or unable to perform activity l. Walking a mile Extreme difficulty or unable to perform activity m. Going up or down Extreme difficulty or unable to perform activity 10 stairs (about 1 flight of stairs) n. Standing for 1 Extreme difficulty or unable to perform activity hour o. Sitting for 1 Quite a bit of difficulty hour p. Running on even Extreme difficulty or unable to perform activity ground q. Running on uneven Extreme difficulty or unable to perform activity ground r. Making sharp Extreme difficulty or unable to perform activity turns while running fast s. Hopping Extreme difficulty or unable to perform activity t. Rolling over in Quite a bit of difficulty bed LEFI Score Lower Extremity 9 Functional Index Score Outpatient Therapy Assessment Impairments Problems/ Palpation Tenderness,Impaired Range of Motion,Impaired Impairmments Strength,Impaired Gait Pattern,Impaired Walking, Impaired Standing,Impaired Lifting,Impaired Household Care,Impaired Stair Climbing,Impaired Squatting, Impaired Balance,Subjective C/O Pain,Impaired Self Care /Self Management Prognosis Rehab Potential Good Comment w HEP compliance Clinical Impression Consistent with Yes Diagnosis Consistent with s/p R TKA PT Patient Goals PT Patient Goals PT Short Term In 4 weeks: Patient Goals 1. Patient will improve R knee ROM to -2-100 in order to demonstrate improvements in functional movement patterns and improved gait mechanics. 2. Patient will improve R hip/knee strength to 3+/5 grossly upon MMT to demonstrate functional strength improvements and to assist with functional movement patterns. 3. Patient will improve LEFS score to 25/80 in order to demonstrate overall improvement in QOL and improvement with normal daily activities. 4. 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 5. Pt will demonstrate HEP compliance by completing prescribed HEP at least 1x/daily. 6. Pt will report a 48 hr pain average of 5/10 in order to demonstrate an improved QOL and overall functional improvement. 7. Pt will be able to walk with symmetrical WB and step length with the LRAD to demonstrate independence with in-home and community mobility. PT Halfway Patient In 8 weeks: Goals 1. Patient will improve R knee ROM to 0-125 in order to demonstrate improvements in functional movement patterns and improved gait mechanics. 2. Patient will improve R hip/knee strength to 4+/5 grossly upon MMT to demonstrate functional strength improvements and to assist with functional movement patterns. 3. Patient will improve LEFS score to 45/80 in order to demonstrate overall improvement in QOL and improvement with normal daily activities. 4. Patient will be able to stand/walk for 60 minutes at one time to demonstrate independence with community activities such as grocery shopping. 5. Pt will be able to ascend/descend a flight of stairs with a reciprocal stepping pattern to demonstrate independence with in-home and community mobility. 6. Pt will report a 48 hr pain average of 2-3/10 in order to demonstrate an improved QOL and overall functional improvement. 7. Pt will be able to ambulate without an AD with no apparent gait abnormalities to demonstrate independence with in-home and community mobility. Outpatient Therapy Plan of Care Treatment Plan May Include Therapeutic Exercise Yes Including Home Exercise Program Manual Therapy Yes Techniques Neuromuscular Re- Yes education Therapeutic Yes Activities to Return to Previous Functional/Work Level Gait Training Yes ADL/Self Care Yes Education Thermal Modalities Yes Electrical Yes Stimulation Manual Lymphatic Yes Drainage Eval/Re-Eval Yes Frequency Times per week 2 Duration Number of Weeks 8 Addendums This patient is a No candidate for social or vocational rehab ? Patient/Guardian Yes verbally acknowledges understanding of treatment program and consents to further treatment? Patient/Guardian Yes verbally acknowledges understanding of diagnosis, prognosis and goals for treatment? Eval Complexity PT Charges 04635 - Moderate Complexity Shoulder/Elbow Eval Shoulder Objective Measurements Elbow Objective Measurements PHYSICIAN CERTIFICATION: I certify the specified therapy services for Milla Reis are required, authorized, and reviewed every 30 days.
== END 2025-04-02 23:59 | disposition home or self-care (01) ==
LOC: PT 12:45
PROVIDERS: Visit Provider Orthopaedic Surgery
DX: Z47.89 Encounter for other orthopedic aftercare (principal); Z96.651 Presence of right artificial knee joint
CPT/HCPCS: 97162

== ENCOUNTER 2025-04-29 11:00 | Outpatient (RCR) | payer BC, SELFPAY | END 2025-04-29 23:59 | disposition home or self-care (01) | LOC: PT 11:00 | PROVIDERS: Visit Provider Orthopaedic Surgery | DX: Z47.89 Encounter for other orthopedic aftercare (principal); Z96.651 Presence of right artificial knee joint | CPT/HCPCS: 97110; 97140; 97530 ==

== ENCOUNTER 2025-05-11 09:52 | Outpatient (CLI) | payer BC, SELFPAY ==
--- NOTE | 2025-05-11 09:53 | XR_ITS ---
FINAL REPORT CLINICAL HISTORY: right total knee replacement COMPARISON: 3 views right knee FINDINGS: RIGHT KNEE: 3 images of the right knee were obtained. There is evidence of a prior total knee arthroplasty. There is no evidence of fracture or dislocation. The joint spaces are intact. There is no soft tissue abnormality identified. IMPRESSION: Prior total knee arthroplasty, with no acute bony abnormality. Reviewed, Interpreted and Dictated by Martinez Sadler MD Transcribed by Kita Georges Authenticated and [facility]
== END 2025-05-11 23:59 | disposition home or self-care (01) ==
LOC: RAD 09:53
PROVIDERS: PCP Nurse Practitioner Family; Visit Provider Physician Assistant Surgical
DX: M17.11 Unilateral primary osteoarthritis, right knee (principal); Z96.651 Presence of right artificial knee joint
CPT/HCPCS: 73562

== ENCOUNTER 2025-05-27 10:00 | Outpatient (RCR) | payer BC, SELFPAY ==
--- NOTE | 2025-05-04 13:27 | HMH.RHREAS ---
Rehab Reassessment Rehab OP Re-assessment Start: 05/04/25 11:05 Freq: Status: Active Protocol: Document 05/04/25 11:05 JAGDISH (Rec: 05/04/25 13:27 JAGDISH [id number]) E-signed By Emery Gong, PT Lower Extremity Functional Index Activities Today, do you or would you have any difficulty at all with: a.Any of your usual Moderate difficulty work, housework or school activities b. Your usual Quite a bit of difficulty hobbies, recreational or sporting activities c. Getting into or Moderate difficulty out of the bath d. Walking between Moderate difficulty rooms e. Putting on your No difficulty shoes or socks f. Squatting Extreme difficulty or unable to perform activity g. Lifting an object No difficulty , like a bag of groceries from the floor h. Performing light A little bit of difficulty activities around your home i. Performing heavy Moderate difficulty activities around your home j. Getting into or No difficulty out of a car k. Walking 2 blocks Extreme difficulty or unable to perform activity l. Walking a mile Extreme difficulty or unable to perform activity m. Going up or down Extreme difficulty or unable to perform activity 10 stairs (about 1 flight of stairs) n. Standing for 1 Moderate difficulty hour o. Sitting for 1 No difficulty hour p. Running on even Extreme difficulty or unable to perform activity ground q. Running on uneven Extreme difficulty or unable to perform activity ground r. Making sharp Extreme difficulty or unable to perform activity turns while running fast s. Hopping Extreme difficulty or unable to perform activity t. Rolling over in Quite a bit of difficulty bed LEFI Score Lower Extremity 31 Functional Index Score Rehab Re-assessment Subjective Subjective Pt reports that she is 30-35% improved at this date. Pt reports that she is mostly ambulating without any AD at this point. Pt reports that she will occasionally use her rollator walker when she has to walk longer distances. Pt reports that she returns to the dr on 05/11. Pt reports HEP compliance. Pt reports that her average pain is approximately a 4/10 at this point in her care. Objective Objective Notes LEFS: 31 (9 on IE) ROM: -2 - 86 MMT: - Hips 4/5 globally - Knee ext/flex 2+/5 Gait: antalgic gait without AD TTP: 0/4 Assessment Progress Assessment Slower Than Expected Assessment Notes Pt presents 1 month s/p R TKA, regularly attending Physical Therapy sessions. PT sessions have consisted of LE strengthening through both open and closed chain mechanisms, R knee mobility exercises and manual therapy focused on improving end range knee flexion and extension, and pain modulation activities. Pt is progressing in all areas, however, she demonstrates decrements in ROM as compared to her expected outcomes at 4 weeks post-operative mihir. Pt returns to her surgeon next Sunday. Skilled PT remains indicated at this time. PT Patient Goals PT Short Term In 4 weeks: Patient Goals 1. Patient will improve R knee ROM to -2-100 in order to demonstrate improvements in functional movement patterns and improved gait mechanics. NOT MET 2. Patient will improve R hip/knee strength to 3+/5 grossly upon MMT to demonstrate functional strength improvements and to assist with functional movement patterns. NOT MET 3. Patient will improve LEFS score to 25/80 in order to demonstrate overall improvement in QOL and improvement with normal daily activities. MET 4. 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 MET 5. Pt will demonstrate HEP compliance by completing prescribed HEP at least 1x/daily. MET 6. Pt will report a 48 hr pain average of 5/10 in order to demonstrate an improved QOL and overall functional improvement. MET 7. Pt will be able to walk with symmetrical WB and step length with the LRAD to demonstrate independence with in-home and community mobility. Partially Met PT Meter Reader Inspector Patient In 8 weeks: NOT MET Goals 1. Patient will improve R knee ROM to 0-125 in order to demonstrate improvements in functional movement patterns and improved gait mechanics. 2. Patient will improve R hip/knee strength to 4+/5 grossly upon MMT to demonstrate functional strength improvements and to assist with functional movement patterns. 3. Patient will improve LEFS score to 45/80 in order to demonstrate overall improvement in QOL and improvement with normal daily activities. 4. Patient will be able to stand/walk for 60 minutes at one time to demonstrate independence with community activities such as grocery shopping. 5. Pt will be able to ascend/descend a flight of stairs with a reciprocal stepping pattern to demonstrate independence with in-home and community mobility. 6. Pt will report a 48 hr pain average of 2-3/10 in order to demonstrate an improved QOL and overall functional improvement. Plan Plan Continue as per initial POC, utilizing the following methods and activities. This progress note is being sent to the referring provider for an update on the pt's care. Frequency of Therapy 2/week Duration of Therapy 4 weeks Therapeutic Exercise Yes Including Home Exercise Program Manual Therapy Yes Techniques Neuromuscular Re- Yes education Therapeutic Yes Activities to Return to Previous Functional/Work Level Thermal Modalities Yes Electrical Yes Stimulation Massage Yes Manual Lymphatic Yes Drainage Eval/Re-Eval Yes Time and Billing Re-Eval Time 10 Re-Eval Billing 0 Units Charge for PT No reassessment? PHYSICIAN CERTIFICATION: I certify the specified therapy services for Milla Reis are required, authorized, and reviewed every 30 days.
== END 2025-05-27 23:59 | disposition home or self-care (01) ==
LOC: PT 10:00
PROVIDERS: PCP Nurse Practitioner Family; Visit Provider Orthopaedic Surgery
DX: M17.11 Unilateral primary osteoarthritis, right knee (principal)
CPT/HCPCS: 97110; 97140